=== PATIENT | female | born 1970 | race Caucasian/White ===

== ENCOUNTER 2019-09-27 10:00 | Outpatient (CLI) | payer MEDICAID, SELFPAY ==
--- NOTE | 2019-09-27 10:07 | MR_ITS ---
WS: [id number] MRI CERVICAL SPINE HISTORY: NUMBNESS AND TINGLING IN RIGHT ARM, NECK PAIN COMPARISON: 10/16/2012 Normal cervical alignment. Mild disc desiccation at C5-6 and C6-7. Signal within the cervical cord is normal. Visualized posterior fossa is unremarkable. Craniocervical junction, C1 and C2 relationship, odontoid process and soft tissues are normal. C2-C3: Normal. C3-C4: Mild osteophytic ridging and a shallow central disc protrusion. No significant stenosis. C4-C5: Small LEFT foraminal osteophytes without significant stenosis. C5-C6: Mild osteophytic ridging with a central disc protrusion. Very slight encroachment upon the abisai tral thecal sac. There is still a small amount of CSF surrounding the cord. C6-C7: Small LEFT paracentral disc osteophyte. Slight narrowing of the proximal LEFT foramen and mild encroachment. Similar to the prior study with no significant progression. C7-T1: Very tiny central disc protrusion. No stenosis. Paraspinal soft tissue are normal. MR/MR cervical spin wo con* [id number] IMPRESSION: 1. Mild progression of spondylosis since 2012. 2. Small stable LEFT paracentral disc osteophyte complex at C6-7 with mild daysi rowing of the proximal LEFT foramen. 3. Central disc protrusion and osteophytes at C5-6 with mild encroachment upon the ventral thecal sac. New since the prior study. 4. Shallow central disc protrusion and osteophytic ridging at C3-4 without ed nosis.
== END 2019-09-27 10:01 | disposition home or self-care (01) ==
LOC: RADWPI 10:04
PROVIDERS: Family Provider Family Medicine; PCP Family Medicine; Referring Provider Family Medicine; Visit Provider Nurse Practitioner Family
DX: J20.9 Acute bronchitis, unspecified (principal); R20.2 Paresthesia of skin; M54.2 Cervicalgia; M47.892 Other spondylosis, cervical region; M25.78 Osteophyte, vertebrae; M50.222 Other cervical disc displacement at C5-C6 level; M50.21 Other cervical disc displacement, high cervical region
CPT/HCPCS: 72141

== ENCOUNTER 2019-10-14 12:56 | Outpatient (REF) | payer MEDICAID, SELFPAY ==
[2019-10-14 13:42] LABS: Basophils # 0.1 10^3/uL (0.0-0.1); Basophils % 0.7 %; Eosinophils # 0.2 10^3/uL (0.0-0.8); Eosinophils % 2.1 %; Hematocrit 40.5 % (37.0-47.0); Hemoglobin 13.2 g/dL (11.5-15.3); Lymphocytes % 26.9 %; Mean Corpuscular HGB Conc 32.6 g/dL (30.0-36.0); Mean Corpuscular Hemoglobin 27.4 pg (28.0-34.0); Mean Platelet Volume 9.1 fL (7.4-10.4); Monocytes # 0.6 10^3/uL (0.2-0.9); Monocytes % 7.6 %; Neutrophils # 4.5 10^3/uL (1.8-7.7); Neutrophils % 62.4 %; Nucleated Red Blood Cells % 0 %; Platelet Count 399 10^3/cmm (130-400); Red Blood Count 4.82 10^6/uL (4.1-5.3); Red Cell Distribution Width 13.8 % (12.1-15.1); White Blood Count 7.3 10^3/uL (4.0-10.0)
[2019-10-14 14:02] LABS: Estmated Average Glucose 105; Hemoglobin A1C 5.3 % (4.0-6.0)
[2019-10-14 14:08] LABS: Alanine Aminotransferase 23 U/L (0-33); Albumin Level 3.8 g/dL (3.5-5.2); Alkaline Phosphatase 100 IU/L (35-105); Anion Gap 14.9 (5-19); Aspartate Amino Transferase 22 U/L (0-32); Blood Urea Nitrogen 10 mg/dL (6-20); Calcium 9.6 mg/dL (8.5-10.5); Carbon Dioxide 28 mmol/L (22-29); Chloride 102 mmol/L (98-107); Cholesterol 168 mg/dL (0-200); Globulin 4.3 g/dL (1.3-4.6); Glomerular Filtration Rate 107.6 mL/min (90-130); Glucose 99 mg/dL (74-109); HDL Cholesterol 41 mg/dL (60-100); LDL Cholesterol Calculated 70 mg/dL (50-129); LDL HDL Ratio 1.71 RATIO (0.00-3.22); Potassium 3.9 mmol/L (3.5-5.1); Sodium 141 mmol/L (136-145); Total Bilirubin 0.2 mg/dL (0.15-1.2); Total Protein 8.1 g/dL (6.6-8.7); Triglycerides 287 mg/dL (0-150)
== END 2019-10-14 12:57 | disposition home or self-care (01) ==
LOC: LAB 12:56
PROVIDERS: Family Provider Family Medicine; PCP Family Medicine; Visit Provider Dermatology
DX: Z01.89 Encounter for other specified special examinations (principal)
CPT/HCPCS: 80053; 80061; 83036; 85025

== ENCOUNTER 2019-10-29 17:57 | Emergency (ER) | payer MEDICAID, SELFPAY ==
[2019-10-29 18:13] VITALS: BP 170/130; PULSE 103; RESP 18; TEMP 37.8; O2SAT 96; BMI 40.2
--- NOTE | 2019-10-29 18:25 | XR_ITS ---
WS: [id number] XR chest 1V portable [id number] REASON FOR EXAM: admission FINDINGS: The heart size is borderline enlarged. The peripheral lung show no pneumonia, pleural effusion, pulmonary edema, or mass effect. Mild degenerate changes in the thoracic spine. No active processes. XR/XR chest 1V portable [id number] IMPRESSION: Cardiomegaly
--- NOTE | 2019-10-29 18:28 | ED_ITS ---
HPI - General Adult General: Chief complaint: General Medical Stated complaint: difficulty breathing Time Seen by Provider: 10/29/19 18:24 History of Present Illness: HPI narrative: Patient complains of feeling achy fever chills with a cough last day or so. Says right ear hurts. Has been taken Tylenol and ibuprofen for the fever MD complaint: flu like s/s Onset (ago): day(s) Relieving factors: none Associated symptoms: Deny chest pain, dyspnea, headache(s), nausea, rash or vomiting Review of Systems Const: Reports: fever, chills and body aches Eyes: Denies: change in vision or blurry vision ENMT: Reports: ear pain; Denies: throat pain or nasal congestion Card: Denies: chest pain or shortness of breath on exertion Resp: Reports: non-productive cough; Denies: shortness of breath or productive cough GI: Denies: abdominal pain, nausea or vomiting Musc: Denies: extremity pain Skin/Breast: Denies: rash Neuro: Denies: headache Psych: Denies: anxiety or depression Kailash/Lymph: Denies: easy bruising PFSH ED PFSH: Social History Smoking and tobacco status: never smoked Physical Exam Const: COMMON NORMALS: no apparent distress, average body habitus and oriented x3 HENMT: COMMON NORMALS: normocephalic and TM's normal bilaterally HEAD & SCALP: normal to inspection and normocephalic FACE & SINUS: normal facial exam TYMPANIC MEMBRANE: TM's normal bilaterally Eye: COMMON NORMALS: conjunctivae normal GENERAL EYE: normal appearance of both eyes CONJUNCTIVA: Yes conjunctivae normal Neck/C-Spine: COMMON NORMALS: no JVD Chest: COMMONS NORMALS: inspection of chest normal Resp: COMMON NORMALS: normal respiratory effort and clear to auscultation bilaterally AUSCULTATION: clear to auscultation bilaterally Cardio: COMMON NORMALS: no JVD, regular rate and regular rhythm RATE: regular rate RHYTHM: regular rhythm GI: COMMON NORMALS: normal to inspection, nondistended, normoactive bowel sounds Extremity: COMMON NORMALS: normal to inspection and full ROM Neuro: COMMON NORMALS: oriented x3 Course Vital Signs: Vital signs: Vital Signs Temperature 100.1 F H 10/29/19 18:13 Pulse Rate 103 H 10/29/19 18:13 Respiratory Rate 18 10/29/19 18:13 Blood Pressure 170/130 10/29/19 18:13 Pulse Oximetry 96 10/29/19 18:13 Discharge Plan Discharge Prescriptions: No Action loratadine [Claritin] 10 mg tablet 10 mg PO ONCE RF: 0 naproxen 250 mg tablet 250 mg PO BID PRNRF: 0 diclofenac sodium [Voltaren] 1 % gel 2 gm TOPICAL QID RF: 0 hydrocodone-acetaminophen 7.5-325 mg tablet 1 tab PO .five times daily PRNRF: 0 duloxetine [Cymbalta] 60 mg capsule,delayed release(DR/EC) 60 mg PO ONCE Qty: 30 RF: 0 temazepam [Restoril] 15 mg capsule 15 mg PO .At bedtime Qty: 30 RF: 0 Coding Level of Care Code ED 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
[2019-10-29 18:46] LABS: Basophils % 0.7 %; Eosinophils % 0.2 %; Hematocrit 41.4 % (37.0-47.0); Hemoglobin 13.1 g/dL (11.5-15.3); Lymphocytes # 0.7 10^3/uL (0.8-4.8); Mean Corpuscular HGB Conc 31.6 g/dL (30.0-36.0); Mean Corpuscular Volume 85.2 fL (81-99); Mean Platelet Volume 8.4 fL (7.4-10.4); Monocytes # 0.6 10^3/uL (0.2-0.9); Monocytes % 9.5 %; Neutrophils # 4.6 10^3/uL (1.8-7.7); Neutrophils % 78.4 %; Nucleated Red Blood Cells % 0 %; Platelet Count 298 10^3/cmm (130-400); Red Blood Count 4.86 10^6/uL (4.1-5.3); White Blood Count 5.9 10^3/uL (4.0-10.0)
[2019-10-29 19:02] LABS: Lactic Sepsis W/Reflex 0.9 mmol/L (0.5-2.2)
[2019-10-29 19:07] LABS: Influenza A by IFA Positive (Negative); Influenza B by IFA Negative (Negative)
[2019-10-29 19:07] LABS: Alanine Aminotransferase 34 U/L (0-33); Alkaline Phosphatase 84 IU/L (35-105); Anion Gap 17.2 (5-19); Aspartate Amino Transferase 34 U/L (0-32); Blood Urea Nitrogen 9 mg/dL (6-20); Calcium 9.1 mg/dL (8.5-10.5); Carbon Dioxide 21 mmol/L (22-29); Chloride 97 mmol/L (98-107); Globulin 3.4 g/dL (1.3-4.6); Glomerular Filtration Rate 92.2 mL/min (90-130); Glucose 111 mg/dL (65-115); Potassium 3.2 mmol/L (3.5-5.1); Sodium 132 mmol/L (136-145); Total Bilirubin 0.4 mg/dL (0.15-1.2); Total Protein 7.4 g/dL (6.6-8.7)
[2019-10-29] MEDS: ketorolac 10 mg Tablet PO (19:24)
--- NOTE | 2019-10-29 19:28 | PC.NURSE ---
Introduced self to patient and initiated vital signs. Pt is A&O x 4 and agreeable. Pt states that the reason for the ER visit today is due to ...... Pt also complaining of flu-like symptoms, Pt complaining of sore throat, chills, cough, and generalized body aches. Reassured patient of needs and will continue to monitor.
[2019-10-29 19:30] VITALS: BP 161/53; PULSE 91; RESP 18; O2SAT 95
== END 2019-10-29 20:16 | disposition home or self-care (01) ==
PROVIDERS: Emergency Provider Nurse Practitioner Family; Family Provider Family Medicine; PCP Family Medicine
DX: R06.00 Dyspnea, unspecified (principal); R50.9 Fever, unspecified; R05 Cough; H92.01 Otalgia, right ear
CPT/HCPCS: 71045; 80053; 83605; 85025; 87040; 87804; 99281; 99283

== ENCOUNTER → 2019-12-10 08:19 | Outpatient (BNVA) | payer MEDICAID, SELFPAY | PROVIDERS: Family Provider Family Medicine; PCP Family Medicine; Visit Provider Nurse Practitioner | DX: F33.41 Major depressive disorder, recurrent, in partial remission (principal); F42.8 Other obsessive-compulsive disorder | CPT/HCPCS: 99214 ==

== ENCOUNTER → 2020-02-02 08:22 | Outpatient (BNVA) | payer MEDICAID, SELFPAY | PROVIDERS: Family Provider Family Medicine; PCP Family Medicine; Visit Provider Nurse Practitioner | DX: F33.41 Major depressive disorder, recurrent, in partial remission (principal); F42.8 Other obsessive-compulsive disorder | CPT/HCPCS: 99213 ==

== ENCOUNTER 2020-04-14 01:18 | Emergency (ER) | payer MEDICAID, SELFPAY ==
[2020-04-07 14:50] VITALS: BP 182/110; BMI 39.5
[2020-04-14 01:27] VITALS: BMI 39.3
--- NOTE | 2020-04-14 01:36 | ED_ITS ---
HPI - General Adult General: Chief complaint: General Medical Stated complaint: right breast pain Time Seen by Provider: 04/14/20 01:24 History of Present Illness: HPI narrative: Patient is a 49-year-old female comes to the ED with left breast lump. Patient says that she noticed the lump within the last 24 hours. She did state that she had some left breast pain/discomfort for the past month when she laid on her left side. She denies any warmth or drainage to the mass. Denies any fever, chills, night sweats, nipple discharge, abdominal pain, nausea/vomiting, bladder or bowel symptoms. Patient states that she has not had a mammogram performed before. Associated symptoms: Deny chest pain, dyspnea, headache(s), nausea, rash, palpitations or vomiting Review of Systems Const: Denies: fever(s), chills or fatigue Eyes: Denies: change in vision or eye discomfort ENMT: Denies: throat pain, odynophagia, nasal discharge or nasal congestion Card: Denies: chest pain, palpitations, edema, swelling of feet/ankles, dyspnea on exertion or orthopnea Resp: Denies: dyspnea, productive cough or non-productive cough GI: Denies: abdominal pain, nausea, vomiting, diarrhea, constipation or hematochezia : Denies: flank pain, dysuria or hematuria Musc: Denies: neck pain, back pain or extremity swelling Skin/Breast: Reports: breast pain (mild breast pain) and breast mass (Patient is new breast lump on left breast.); Denies: rash, new lesions, breast tenderness or nipple discharge Neuro: Denies: headache(s), numbness in extremities or weakness in extremities PFS ED PFSH: Medical History Other obsessive-compulsive disorder Recurrent major depressive disorder, in partial remission Social History Smoking and tobacco status: never smoked Alcohol intake: never Physical Exam Const: COMMON NORMALS: no acute distress, patient oriented x3, healthy appearing and alert GENERAL APPEARANCE: cooperative and comfortable HENMT: COMMON NORMALS: normocephalic HEAD & SCALP: normocephalic MOUTH: Normal oral and palatal mucosa present THROAT: posterior oropharynx normal and uvula midline Neck/C-Spine: COMMON NORMALS: supple GENERAL: Yes normal visual inspection Lymph: LYMPHATIC: lymphadenopathy axillary multiple and mobile; not warm and nontender 0.5 cm Chest: BREAST/AXILLA PALPATION: Yes abnormal palpation of the breast left lower inner Breast palpation abnormal details: mass Details: mobile, shape (Oval-shaped and approximately 2 cm in size.), firm and cystic and Yes axillary lymphadenopathy Details: lateral adenopathy (Small palpable lymph nodes that are nontender in the axillary region.) NIPPLE/AREOLA: Yes nipples/areola normal OTHER: Patient's left breast mass is nontender. It is not warm to the touch and is nonflunctuant. Resp: COMMON NORMALS: normal respiratory effort, No retractions, No use of accessory muscles and clear to auscultation bilaterally AUSCULTATION: clear to auscultation bilaterally Cardio: COMMON NORMALS: regular rate, regular rhythm, S1 normal heart sound present, S2 normal heart sound present, No gallops present (Cardio), No clicks present (Cardio), No murmurs present (Cardio) and Peripheral pulses 2+ throughout RATE: regular rate RHYTHM: regular rhythm HEART SOUNDS: S1 normal heart sound present and S2 normal heart sound present PERIPHERAL PULSES: Peripheral pulses 2+ throughout GI: COMMON NORMALS: Normal to inspection, nondistended, normoactive bowel sounds present, Soft to palpation, non-tender and no masses PALPATION: Yes Soft to palpation : COMMON NORMALS: Yes no CVA tenderness BLADDER/KIDNEY EXAM: Yes no CVA tenderness Back/Pelvis: COMMON NORMALS: no CVA tenderness Extremity: COMMON NORMALS: normal to inspection and no pedal edema Neuro: COMMON NORMALS: patient oriented x3 and moves all extremities SENSORIUM/ORIENTATION: Yes alert Skin: GENERAL SKIN EXAM: dry skin Course ED course: Bedside ultrasound of left breast mass showed no fluid filled pocket or hypoechoic mass. Vital Signs: Vital signs: Vital Signs Pulse Rate 95 04/14/20 01:49 Respiratory Rate 18 04/14/20 01:49 Blood Pressure 163/105 04/14/20 01:49 MDM - General Adult MDM Narrative: Medical decision making narrative: Patient is a 49-year-old female who comes to the ED with a left breast mass. Physical exam showed a palpable left breast mass measuring approximately 2 cm and oval-shaped. It was nontender, nonfluctuant, normal for and no warmth. Bedside ultrasound showed the mass was not fluid-filled or hypoechoic. Physical exam and ultrasound ruled out abscess. Patient was diagnosed with a left breast mass and told to call PCP tomorrow morning to get an outpatient mammogram scheduled for further evaluation of breast mass. Patient understood and agreed with plan. Discharge Plan Discharge Patient Disposition: Home Clinical Impression: Breast lump on left side at 8 o'clock position Condition: Stable Prescriptions: No Action loratadine [Claritin] 10 mg tablet 10 mg PO ONCE RF: 0 diclofenac sodium [Voltaren] 1 % gel 2 gm TOPICAL QID RF: 0 hydrocodone-acetaminophen 7.5-325 mg tablet 1 tab PO .five times daily PRNRF: 0 albuterol sulfate 90 mcg/actuation HFA aerosol inhaler 2 puff INHALATION Q6H PRN (Reason: shortness of breath or wheezing) Qty: 18 RF: 0 escitalopram oxalate [Lexapro] 10 mg tablet 10 mg PO DAILY Qty: 30 RF: 2 temazepam [Restoril] 15 mg capsule 15 mg PO .At bedtime Qty: 30 RF: 2 amoxicillin 500 mg capsule 500 mg PO TID 10 Days Qty: 30 RF: 0 Discharge Orders: Discharge Order (Routine); Ordered 04/14/20 Ordered By: Calvin Palomino Referrals: Washington Bernard DO [Primary Care Provider] - Discharge Diet: Regular Discharge Activity: Resume usual activity Patient Instructions: Breast Mass (ED) Activity Restrictions/Additional Instructions: Follow-up with medical provider as directed. Contact PCP tomorrow morning to get a outpatient mammogram scheduled. Continue taking all home medications as prescribed. Return to the ER or your medical provider if condition worsens. Please read and understand discharge instructions. If any questions, please ask. 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
[2020-04-14 01:49] VITALS: BP 163/105; PULSE 95; RESP 18
[2020-04-14 02:10] VITALS: BP 155/89; PULSE 78; RESP 16; O2SAT 99
== END 2020-04-14 02:11 | disposition home or self-care (01) ==
PROVIDERS: Emergency Provider Physician Assistant; PCP Family Medicine
DX: N63.20 Unspecified lump in the left breast, unspecified quadrant (principal)
CPT/HCPCS: 12345; 99281

== ENCOUNTER → 2020-05-04 07:42 | Outpatient (BNVA) | payer MEDICAID, SELFPAY ==
[2020-04-07 14:50] VITALS: BP 182/110; BMI 39.5
== END ==
PROVIDERS: PCP Family Medicine; Visit Provider Nurse Practitioner
DX: F33.41 Major depressive disorder, recurrent, in partial remission (principal); F42.8 Other obsessive-compulsive disorder
CPT/HCPCS: 90832; 99213

== ENCOUNTER → 2020-06-07 07:34 | Outpatient (BNVA) | payer MEDICAID, SELFPAY ==
[2020-04-07 14:50] VITALS: BP 182/110; BMI 39.5
== END ==
PROVIDERS: PCP Family Medicine; Visit Provider Nurse Practitioner
DX: F42.8 Other obsessive-compulsive disorder (principal); F33.41 Major depressive disorder, recurrent, in partial remission
CPT/HCPCS: 99213

== ENCOUNTER → 2020-08-23 07:46 | Outpatient (BNVA) | payer MEDICAID, SELFPAY ==
[2020-04-07 14:50] VITALS: BP 182/110; BMI 39.5
== END ==
PROVIDERS: PCP Family Medicine; Visit Provider Nurse Practitioner
DX: F33.41 Major depressive disorder, recurrent, in partial remission (principal); F42.8 Other obsessive-compulsive disorder
CPT/HCPCS: 99214

== ENCOUNTER 2020-09-05 06:38 | Emergency (ER) | payer MEDICAID, SELFPAY ==
[2020-04-07 14:50] VITALS: BP 182/110; BMI 39.5
[2020-09-05 06:45] VITALS: BP 169/95; PULSE 64; RESP 18; TEMP 36.8; O2SAT 98; BMI 35.6
--- NOTE | 2020-09-05 06:49 | W.ED.BACK ---
HPI - Back Pain/Injury General: Chief Complaint: Neck Pain/Injury Stated Complaint: Right Arm/Back Pain Time Seen by Provider: 09/05/20 06:45 History of Present Illness: HPI Narrative: 50-year-old female comes in complaining of right arm and neck pain. She has had neck pain with the right arm radicular pain for several months. She was supposed to follow-up with neurosurgery but due to some scheduling issues was not able to follow through with. Last several days the pain has been worse. She denies any reexacerbating injuries. Pertinent past history: other (Prior neck pain) Onset (ago): day(s) Timing: constant Severity: severe Similar Symptoms Previously: Yes Quality: burning Radiation: other (Right arm) Exacerbating factors: movement Relieving factors: other (Resting) Associated symptoms: Deny abdominal pain, chills, dysuria, fatigue, fever(s), nausea, urinary urgency or vomiting Review of Systems Const: Denies: fever(s), chills, body aches, change in appetite, fatigue or malaise ENMT: Denies: throat pain, ear or mastoid pain, nasal discharge or nasal congestion Card: Denies: chest pain, edema, dyspnea on exertion or orthopnea Resp: Denies: dyspnea, productive cough or non-productive cough GI: Denies: abdominal pain, nausea, vomiting, hematemesis, coffee ground emesis, diarrhea, constipation, bloating, hematochezia or melena : Denies: flank pain, difficulty voiding, dysuria, urinary frequency or urinary urgency Skin/Breast: Denies: rash or pruritus PFSH ED PFSH: Medical History (Updated 09/05/20 @ 07:54 by Donnie Chandra DO) Other obsessive-compulsive disorder Recurrent major depressive disorder, in partial remission Family History Father Hypertension CAD (coronary artery disease) Hyperlipidemia Cancer Brother Hypertension CAD (coronary artery disease) Hyperlipidemia Grandfather CAD (coronary artery disease) Hypertension Mother Hyperlipidemia Social History Smoking and tobacco status: never smoked Alcohol intake: never Current gender identity: Female Physical Exam Const: COMMON NORMALS: no acute distress GENERAL APPEARANCE: cooperative and comfortable ORIENTATION/CONSCIOUSNESS: Yes awake, Yes oriented to person, Yes oriented to place and Yes oriented to time HENMT: COMMON NORMALS: normocephalic and atraumatic HEAD & SCALP: normocephalic and atraumatic Neck/C-Spine: COMMON NORMALS: no JVD OTHER: Moderate neck pain, exacerbated by attempts at range of motion. Radiation through the shoulder down into the right arm. Resp: COMMON NORMALS: normal respiratory effort, No retractions, No use of accessory muscles and clear to auscultation bilaterally AUSCULTATION: clear to auscultation bilaterally Cardio: COMMON NORMALS: no JVD, regular rate, regular rhythm and No murmurs present (Cardio) RATE: regular rate RHYTHM: regular rhythm GI: COMMON NORMALS: Soft to palpation and No hepatosplenomegaly present AUSCULTATION: Yes normoactive bowel sounds PALPATION: Yes Soft to palpation, No Tenderness to palpation present (GI), No Guarding due to palpation present (GI) and Yes No hepatosplenomegaly present Extremity: COMMON NORMALS: normal to inspection, capillary refill normal, no clubbing, cyanosis or edema, no calf tenderness and no pedal edema Neuro: SENSORIUM/ORIENTATION: Yes oriented to person, Yes oriented to place and Yes oriented to time Skin: COMMON NORMALS: no rashes or lesions noted GENERAL SKIN EXAM: no rashes or lesions noted Course Vital Signs: Vital signs: Vital Signs Temperature 98.2 F 09/05/20 06:45 Pulse Rate 64 09/05/20 06:45 Respiratory Rate 18 09/05/20 06:45 Blood Pressure 169/95 09/05/20 06:45 Pulse Oximetry 98 09/05/20 06:45 MDM - Back Pain/Injury MDM Narrative: Medical decision making narrative: Patient improved with medications given. Working to go ahead and discharge her home start Lyrica also do Medrol dose pack, refer to Dr. Durham. She had some new disc disease in September of this year on her cervical spine MRI. We will reschedule her for another MRI and refer her to Dr. Durhma. Discharge Plan Discharge Patient Disposition: Home Clinical Impression: Cervical radiculopathy Condition: Stable Prescriptions: New Lyrica 75 mg capsule 75 mg PO BID Qty: 60 RF: 1 Medrol (Salbador) 4 mg tablets,dose pack See Rx Instructions .ROUTE .COMPLEX Qty: 21 RF: 0 No Action loratadine [Claritin] 10 mg tablet 10 mg PO ONCE RF: 0 diclofenac sodium [Voltaren] 1 % gel 2 gm TOPICAL QID RF: 0 hydrocodone-acetaminophen 7.5-325 mg tablet 1 tab PO .five times daily PRNRF: 0 albuterol sulfate 90 mcg/actuation HFA aerosol inhaler 2 puff INHALATION Q6H PRN (Reason: shortness of breath or wheezing) Qty: 18 RF: 0 escitalopram oxalate [Lexapro] 10 mg tablet 10 mg PO DAILY Qty: 30 RF: 1 temazepam 30 mg capsule 30 mg PO .HS Qty: 30 RF: 1 Discharge Orders: Discharge ED (Routine); Ordered 09/05/20 Ordered By: Donnie Chandra Referrals: Washington Bernard DO [Primary Care Provider] - Discharge Diet: Usual diet Discharge Activity: Increase activity as tolerated Activity Restrictions/Additional Instructions: Case management will call with an appointment for Dr. Durham (orthopedic spine surgery) Coding Level of Care Code ED Associate Store Manager for Pat Fwd Exam Comprehensive
--- NOTE | 2020-09-05 07:11 | ECG_ITS ---
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 Measurements Intervals [place] Rate: 59 P: 52 [place]: 202 QRS: 25 QRSD: 89 T: 8 QT: 427 QTc: 423 Interpretive Statements SINUS BRADYCARDIA POSSIBLE LEFT ATRIAL ENLARGEMENT [-0.1mV P WAVE IN V1/V2] POSSIBLE RIGHT VENTRICULAR CONDUCTION DELAY [RSR (QR) IN V1/V2] MINIMAL ST DEPRESSION [0.025+ mV ST DEPRESSION] Compared to ECG 03/05/2019 19:13:49 ST (T wave) deviation now present Sinus rhythm no longer present T-wave abnormality no longer present Electronically Signed On 09-05-2020 9:37:43 SINTER FEEDER by Haris May M.D. [id number]
[2020-09-05] MEDS: orphenadrine 30 mg/mL Inj 2 mL 60 MG IM (07:29)
[2020-09-05] MEDS: ketorolac 60 mg/2 mL INJ IM (07:30)
[2020-09-05] MEDS: dexamethasone 4 mg/mL INJ 10 MG IM (07:30)
[2020-09-05 08:22] VITALS: BP 154/82; PULSE 57; RESP 18; O2SAT 97
--- NOTE | 2020-09-05 10:27 | DCPLANNER ---
Addendum entered by Mellissa Bardales 09/11/20 16:22: branch manager had message to schedule a follow up appointment for patient with Dr. Durham after MRI. branch manager called the ortho clinic, spoke with Ursula, gave clinic patients information. Clinic will call patient with appointment information, after patient has MRI. Original Note: branch manager had message to schedule a follow up appointment for patient with ortho. branch manager called the ortho clinic, spoke with Minoo, gave clinic patients information. branch manager was told that patients information would be printed and reviewed. Clinic will call patient with appointment information.
--- NOTE | 2020-09-15 11:02 | DCPLANNER ---
Patient had a follow up appointment scheduled for 09.07.20 with ortho - patient did attend the appointment.
--- NOTE | 2020-10-03 07:36 | DCPLANNER ---
Patient had an outpatient MRI scheduled for 09.28. - patient attended appointment for MRI.
== END 2020-09-05 08:25 | disposition home or self-care (01) ==
PROVIDERS: Emergency Provider Family Medicine; PCP Family Medicine
DX: M54.12 Radiculopathy, cervical region (principal)
CPT/HCPCS: 12345; 93005; 96372; 99281; 99283; J1100; J1885; J2360

== ENCOUNTER → 2020-09-07 10:51 | Outpatient (BNVA) | payer MEDICAID, SELFPAY ==
[2020-04-07 14:50] VITALS: BP 182/110; BMI 39.5
== END ==
PROVIDERS: PCP Family Medicine; Referring Provider Family Medicine; Visit Provider Orthopaedic Surgery
DX: M54.12 Radiculopathy, cervical region (principal); M54.2 Cervicalgia
CPT/HCPCS: 72050

== ENCOUNTER 2020-09-28 08:46 | Outpatient (CLI) | payer MEDICAID, SELFPAY ==
[2020-04-07 14:50] VITALS: BP 182/110; BMI 39.5
--- NOTE | 2020-09-28 08:51 | MR_ITS ---
WS: [id number] MRI CERVICAL SPINE NONCONTRAST TECHNIQUE: Sagittal T1, T2 and STIR imaging. Axial T2, gradient, and fiesta imaging. CLINICAL INFORMATION: CERVICAL DISC DISEASE COMPARISON: MRI September 27, 2019 FINDINGS: Straightening of the normal cervical lordosis. Small disc protrusion C5-C6 and C6-C7. C2-C3: Normal. C3-C4: Mild left and no significant right foraminal narrowing. Mild facet arthropathy. Spinal canal i s patent. C4-C5: Mild disc osteophytic ridging. Mild left and no significant right foraminal narrowing. Mild fa cet arthropathy. Spinal canal is patent. C5-C6: Disc osteophyte complex with endplate ridging. Mild left and no significant right foraminal na rrowing. Mild facet arthropathy. Tiny shallow central protrusion is unchanged. C6-C7: Left pericentral shallow protrusion with slight contact of the cervical cord. Mild central can al stenosis. Moderate left and no significant right foraminal narrowing. This is slightly progressed compared to previous. C7-T1: Mild bilateral bony foraminal narrowing. Spinal canal is patent. Visualized brain stem structures: Normal. Prevertebral soft tissues: Normal. MR/MR cervical spin wo con* [id number] IMPRESSION: 1. Straightening of the normal cervical lordosis. Cord signal is normal. 2. Shallow left pericentral protrusion C6-C7 with mild central canal stenosis and slight contact of the cervical cord. This is slightly progressed compared t o previous. Moderate left foraminal narrowing. 3. Tiny shallow central protrusion C5-C6 is unchanged. Osteophytic ridging wit h mild left foraminal narrowing. 4. Mild left C4-5 bony foraminal narrowing with mild facet arthropathy.
== END 2020-09-28 08:47 | disposition home or self-care (01) ==
LOC: RADSHAW 08:49
PROVIDERS: PCP Family Medicine; Visit Provider Family Medicine
DX: M50.30 Other cervical disc degeneration, unspecified cervical region (principal); M50.223 Other cervical disc displacement at C6-C7 level; M47.812 Spondylosis without myelopathy or radiculopathy, cervical region
CPT/HCPCS: 72141

== ENCOUNTER → 2020-09-29 08:48 | Outpatient (BNVA) | payer MEDICAID, SELFPAY ==
[2020-04-07 14:50] VITALS: BP 182/110; BMI 39.5
== END ==
PROVIDERS: PCP Family Medicine; Referring Provider Orthopaedic Surgery; Visit Provider Anesthesiology Pain Medicine
DX: G89.29 Other chronic pain (principal); M50.90 Cervical disc disorder, unspecified, unspecified cervical region; M47.812 Spondylosis without myelopathy or radiculopathy, cervical region; E66.9 Obesity, unspecified
CPT/HCPCS: 99205

== ENCOUNTER 2020-10-05 02:49 | Emergency (ER) | payer MEDICAID, SELFPAY ==
[2020-04-07 14:50] VITALS: BP 182/110; BMI 39.5
[2020-10-05 02:56] VITALS: PULSE 63; RESP 20; TEMP 37.1; O2SAT 98; BMI 36.2
--- NOTE | 2020-10-05 03:05 | ED_ITS ---
HPI - Abdominal Pain General: Chief Complaint: Abdominal Pain Stated Complaint: ab pain, thinks its an ovary Time Seen by Provider: 10/05/20 02:51 Source: patient Mode of arrival: ambulatory Limitations: no limitations History of Present Illness: HPI narrative: 50-year-old female states she has had left lower quadrant pain and flank pain that started all of a sudden tonight is having severe pain. States tonight at 10 is causing her nausea. She denies any vomiting. She denies any worsening improving factors. She has a history of ovarian cyst in the past. She denies any vaginal bleeding. MD elicited complaint: abdominal pain Pertinent past history: none Onset (ago): hour(s) Pain Consistency: constant Location: LLQ Severity: severe Quality: stabbing Radiation: none Migration to: no migration Exacerbating factors: nothing Relieving factors: nothing Associated Symptoms: Reports nausea; Denies chills, dysuria and fever(s) Related Data: Date of Last Menstrual Period: 09/05/20 Review of Systems Const: Denies: fever(s), chills, body aches or change in appetite Eyes: Denies: blurry vision or eye discomfort ENMT: Denies: throat pain or dental pain Card: Denies: chest pain Resp: Denies: dyspnea GI: Reports: abdominal pain and nausea : Denies: dysuria Musc: Denies: neck pain or back pain Skin/Breast: Denies: rash Neuro: Denies: headache(s) Psych: Denies: depression Kailash/Lymph: Denies: easy bruising All/Imm: Denies: urticaria PFSH ED PFSH: Medical History (Updated 10/05/20 @ 04:40 by Dannie Kumar MD) Other obsessive-compulsive disorder Recurrent major depressive disorder, in partial remission Family History Father Hypertension CAD (coronary artery disease) Hyperlipidemia Cancer Brother Hypertension CAD (coronary artery disease) Hyperlipidemia Grandfather CAD (coronary artery disease) Hypertension Mother Hyperlipidemia Social History Smoking and tobacco status: never smoked Alcohol intake: never History of recent travel: No Current gender identity: Female Female Reproductive History: Date of last menstrual period: 09/05/20 Physical Exam Const: COMMON NORMALS: no acute distress, patient oriented x3 and healthy appearing HENMT: COMMON NORMALS: normocephalic and atraumatic HEAD & SCALP: normoc ephalic and atraumatic Eye: COMMON NORMALS: Equal, round and reactive pupils present and EOMs intact bilaterally PUPIL: Yes Equal, round and reactive pupils present Neck/C-Spine: COMMON NORMALS: full ROM and supple Chest: COMMONS NORMALS: normal inspection of the chest and normal palpation of entire chest wall Resp: COMMON NORMALS: normal respiratory effort, No retractions, No use of accessory muscles and clear to auscultation bilaterally AUSCULTATION: clear to auscultation bilaterally Cardio: COMMON NORMALS: regular rate, regular rhythm and No murmurs present (Cardio) RATE: regular rate RHYTHM: regular rhythm GI: COMMON NORMALS: Normal to inspection, nondistended, normoactive bowel sounds present, Soft to palpation and no masses PALPATION: Yes Soft to palpation and Yes Tenderness to palpation present (GI) Details: LLQ Extremity: COMMON NORMALS: normal to inspection and full ROM Neuro: COMMON NORMALS: patient oriented x3, moves all extremities and no focal motor deficits Psych: COMMON NORMALS: mental status grossly normal, Normal thought process present and cooperative THOUGHT PROCESS: Normal thought process present Skin: COMMON NORMALS: no rashes or lesions noted and no wounds GENERAL SKIN EXAM: no rashes or lesions noted Course Vital Signs: Vital signs: Vital Signs Temperature 98.8 F 10/05/20 02:56 Pulse Rate 63 10/05/20 02:56 Respiratory Rate 20 H 10/05/20 02:56 Pulse Oximetry 98 10/05/20 02:56 MDM - Abdominal Pain MDM Narrative: Medical decision making narrative: Patient presents here with a kidney stone likely causing her pain. Patient feels much improved after IV pain medicine. Stone is small and at the UVJ and should pass. We will discharge her with a strainer and pain meds. She is to follow-up with urology and return if worsening. Lab Data: Labs: Lab Results 10/05/20 10/05/20 10/05/20 Range/Units 03:06 03:17 03:17 WBC 7.9 (4.0-10.0) 10^3/ uL RBC 5.01 (4.1-5.3) 10^6/u L Hgb 14.0 (11.5-15.3) g/dL Hct 42.7 (37.0-47.0) % MCV 85.2 (81-99) fL MCH 27.9 L (28.0-34.0) pg MCHC 32.8 (30.0-36.0) g/dL RDW 13.9 (12.1-15.1) % Plt Count 356 (130-400) 10^3/c mm MPV 8.7 (7.4-10.4) fL Neut % (Auto) 53.3 % Lymph % (Auto) 34.4 % Moffat % (Auto) 9.7 % Eos % (Auto) 1.9 % Baso % (Auto) 0.6 % Neut # (Auto) 4.19 (1.8-7.7) 10^3/u L Lymph # (Auto) 2.7 (0.8-4.8) 10^3/u L Moffat # (Auto) 0.8 (0.2-0.9) 10^3/u L Eos # (Auto) 0.2 (0.0-0.8) 10^3/u L Baso # (Auto) 0.1 (0.0-0.1) 10^3/u L Nucleated RBC % (a uto) 0 % Nucleated RBCs # 0.0 /100WBC Sodium 139 (136-145) mmol/L Potassium 3.4 L (3.5-5.1) mmol/L Chloride 102 (98-107) mmol/L Carbon Dioxide 27 (22-29) mmol/L Anion Gap 13.4 (5-19) BUN 15 (6-20) mg/dL Creatinine 0.9 (0.5-0.9) mg/dL GFR Calculation 66.3 L (90-130) mL/min Glucose 104 (65-115) mg/dL Calculated Osmolal ity 289 (285-295) mOsm/k g Calcium 9.1 (8.5-10.5) mg/dL Total Bilirubin 0.3 (0.15-1.2) mg/dL AST 18 (0-32) U/L ALT 21 (0-33) U/L Alkaline Phosphata se 96 (35-105) IU/L Total Protein 7.1 (6.6-8.7) g/dL Albumin 3.9 (3.5-5.2) g/dL Globulin 3.2 (1.3-4.6) g/dL Lipase 19 (13-60) U/L Urine Color Yellow (Yellow) Urine Appearance Clear (CLEAR) Urine pH 5.0 (5-7) Ur Specific Gravit y 1.020 (1.005-1.030) Urine Protein Neg (Negative) Urine Glucose (UA) Norm (Normal) Urine Ketones Negative (Negative) Urine Blood 3+ H (Negative) Urine Nitrate Negative (Negative) Urine Bilirubin Neg (Negative) Urine Urobilinogen Norm (Negative) mg/dL Ur Leukocyte Tmaiko ase Negative (Negative) Urine RBC 15-25 H (0-2) /hpf Urine WBC None (0-5) /hpf Ur Squamous Epith Cells None (0-5) /hpf Amorphous Sediment Not Reportable Urine Bacteria Trace (NONE) /hpf Imaging Data ^: CT Abd/Pel: Attestation: I personally reviewed and interpreted this imaging study as f humberto: Radiologist's impression: [place] [address] CT Scan Report Signed Patient: Clover Farmer Unit #: [id number] : 1970 Age/Sex: 50 / F ADM Date: 10/05/20 Loc: ER Room/Bed: Attending Dr: Ordering Provider/Ordering MD: Dannie Kumar MD Date of Service: 10/05/20 Procedure(s): CT abdomen pelvis w con* [id number] Accession Number(s): [id number] Report Number: [id number] PROCEDURE INFORMATION: Exam: CT Abdomen And Pelvis With Contrast Exam date and time: 10/05/2020 3:14 AM Age: 50 years old Clinical indication: Abdominal pain; Localized; Right lower quadrant (rlq); Prior surgery; Surgery type: Csection; Patient HX: Rlq and groin pain. ; Additional info: Abd pain TECHNIQUE: Imaging protocol: Computed tomography of the abdomen and pelvis with intravenous contrast. Radiation optimization: All CT scans at this facility use at least one of these dose optimization techniques: automated exposure control; mA and/or kV adjustment per patient size (includes targeted exams where dose is matched to clinical indication); or iterative reconstruction. Contrast material: OMNI 300; Contrast volume: 95 ml; Contrast route: INTRAVENOUS (IV); COMPARISON: [place] [id number] 03/31/2014 8:41 PM RADIATION DOSE METRICS: Total DLP (mGy-cm): 1250.39 FINDINGS: Liver: No mass. Gallbladder and bile ducts: No calcified stones. No ductal dilation. Pancreas: No ductal dilation. Spleen: No splenomegaly. Adrenal glands: Normal. No mass. Kidneys and ureters: Left hydronephrosis from a 2-3 mm UVJ stone. Stomach and bowel: No obstruction. No mucosal thickening. Appendix: No evidence of appendicitis. Intraperitoneal space: No free air. No significant fluid collection. Vasculature: No abdominal aortic aneurysm. Lymph nodes: No enlarged lymph nodes. Urinary bladder: Unremarkable as visualized. Reproductive: Unremarkable as visualized. Bones/joints: Unremarkable. No acute fracture. Soft tissues: Unremarkable. CT/CT abdomen pelvis w con* [id number] IMPRESSION: Left hydronephrosis from a 2-3 mm UVJ stone. Discharge Plan Discharge Patient Disposition: Home Clinical Impression: Kidney stone Condition: Stable Prescriptions: [place] 5-325 mg tablet 1 tab PO Q6H PRN (Reason: pain) Qty: 14 RF: 0 ondansetron 4 mg tablet,disintegrating 4 mg PO Q6H PRN (Reason: nausea and vomiting) Qty: 14 RF: 0 No Action loratadine [Claritin] 10 mg tablet 10 mg PO ONCE RF: 0 diclofenac sodium [Voltaren] 1 % gel 2 gm TOPICAL QID RF: 0 hydrocodone-acetaminophen 7.5-325 mg tablet 1 tab PO .five times daily PRNRF: 0 albuterol sulfate 90 mcg/actuation HFA aerosol inhaler 2 puff INHALATION Q6H PRN (Reason: shortness of breath or wheezing) Qty: 18 RF: 0 escitalopram oxalate [Lexapro] 10 mg tablet 10 mg PO DAILY Qty: 30 RF: 1 temazepam 30 mg capsule 30 mg PO .HS Qty: 30 RF: 1 Lyrica 75 mg capsule 75 mg PO BID Qty: 60 RF: 1 Discharge Orders: Discharge ED (Routine); Ordered 10/05/20 Ordered By: Dannie Kumar Referrals: Pete Lugo MD [Physician] - 1-3 days Marco Antonio,[place] F, DO [Primary Care Provider] - Discharge Diet: Advance as tolerated Discharge Activity: Resume usual activity Patient Instructions: Kidney Stones (ED) Coding Level of Care Code ED 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
[2020-10-05 03:22] LABS: Basophils # 0.1 10^3/uL (0.0-0.1); Basophils % 0.6 %; Eosinophils # 0.2 10^3/uL (0.0-0.8); Eosinophils % 1.9 %; Hematocrit 42.7 % (37.0-47.0); Lymphocytes # 2.7 10^3/uL (0.8-4.8); Lymphocytes % 34.4 %; Mean Corpuscular HGB Conc 32.8 g/dL (30.0-36.0); Mean Corpuscular Hemoglobin 27.9 pg (28.0-34.0); Mean Corpuscular Volume 85.2 fL (81-99); Mean Platelet Volume 8.7 fL (7.4-10.4); Monocytes # 0.8 10^3/uL (0.2-0.9); Monocytes % 9.7 %; Neutrophils # 4.19 10^3/uL (1.8-7.7); Neutrophils % 53.3 %; Nucleated Red Blood Cells % 0 %; Platelet Count 356 10^3/cmm (130-400); Red Blood Count 5.01 10^6/uL (4.1-5.3); Red Cell Distribution Width 13.9 % (12.1-15.1); White Blood Count 7.9 10^3/uL (4.0-10.0)
[2020-10-05] MEDS: ondansetron 2 mg/ML SDV 2 mL 4 MG IVP (03:33)
[2020-10-05] MEDS: HYDROmorphone 1 mg/mL INJ 1 mL IVP (03:33)
[2020-10-05] MEDS: sodium chloride 0.9% 1,000 ML 999 ML IV (03:33)
[2020-10-05] MEDS: iohexol 300 mg/mL 100 mL Btl IV (03:37)
[2020-10-05 03:44] LABS: Alanine Aminotransferase 21 U/L (0-33); Albumin Level 3.9 g/dL (3.5-5.2); Alkaline Phosphatase 96 IU/L (35-105); Anion Gap 13.4 (5-19); Aspartate Amino Transferase 18 U/L (0-32); Blood Urea Nitrogen 15 mg/dL (6-20); Calcium 9.1 mg/dL (8.5-10.5); Carbon Dioxide 27 mmol/L (22-29); Chloride 102 mmol/L (98-107); Globulin 3.2 g/dL (1.3-4.6); Glomerular Filtration Rate 66.3 mL/min (90-130); Glucose 104 mg/dL (65-115); Lipase 19 U/L (13-60); Osmolality Calculated 289 mOsm/kg (285-295); Potassium 3.4 mmol/L (3.5-5.1); Sodium 139 mmol/L (136-145); Total Bilirubin 0.3 mg/dL (0.15-1.2); Total Protein 7.1 g/dL (6.6-8.7)
[2020-10-05 03:57] LABS: Add Urine Culture? No; Add Urine Microscopic? YES; Bacteria Urine TRACE /hpf; Bilirubin Urine Neg (Negative); Blood Urine 3+ (Negative); Glucose Urine UA Norm (Normal); Ketones Urine Negative (Negative); Leukocyte Esterase Urine Negative (Negative); Nitrate Urine Negative (Negative); Protein Urine Neg (Negative); RBC Urine 15-25 /hpf (0-2); Urine Appearance Clear (CLEAR); Urine Color Yellow (Yellow); Urobilinogen Urine Norm (Negative)
[2020-10-05] MEDS: ketorolac 30 mg/mL INJ 15 MG IVP (05:14)
[2020-10-05 05:15] VITALS: BP 143/87; PULSE 89; RESP 16; O2SAT 99
--- NOTE | 2020-10-05 11:47 | DCPLANNER ---
express manager had message to schedule a follow up appointment for patient Dr. Lugo. express manager called the office of Dr. Lugo, spoke with Leelee, gave clinic patients information. express manager was told that patients information would be printed and reviewed. Clinic will call patient with appointment information.
--- NOTE | 2020-10-06 13:43 | DCPLANNER ---
Patient had a follow up appointment for patient with Dr. Lugo, scheduled for 10.06.20 - patient did attend appointment.
== END 2020-10-05 05:17 | disposition home or self-care (01) ==
PROVIDERS: Emergency Provider Emergency Medicine; PCP Family Medicine
DX: N20.0 Calculus of kidney (principal)
CPT/HCPCS: 12345; 74177; 80053; 81001; 83690; 85025; 87491; 87591; 96361; 96374; 96375; 99282; 99283; J1170; J1885; J2405; J7030; Q9967

== ENCOUNTER 2020-10-06 07:10 | Outpatient (CLI) | payer MEDICAID, SELFPAY ==
[2020-04-07 14:50] VITALS: BP 182/110; BMI 39.5
--- NOTE | 2020-10-06 07:00 | XR_ITS ---
WS: [id number] KUB, AP view, 10/06/2020 Clinical Data: KIDNEY STONE Comparison: CT abdomen and pelvis, 10/05/2020 Findings: No abnormal intraabdominal masses are seen. There is no dilatated small bowel or evidence of obstruct ion. There are 3 calcifications on the left side of the true pelvis, and one of them could represent the l eft ureteral vesicle junction calculus. XR/XR KUB [id number] Impression: Probable left ureteral vesicle junction calculus
== END 2020-10-06 07:11 | disposition home or self-care (01) ==
LOC: RAD 07:11
PROVIDERS: PCP Family Medicine; Visit Provider Urology
DX: N20.0 Calculus of kidney (principal)
CPT/HCPCS: 74018; 81003; 87635

== ENCOUNTER 2020-10-09 12:56 | Day surgery (SDC) | payer MEDICAID, SELFPAY ==
[2020-04-07 14:50] VITALS: BP 182/110; BMI 39.5
[2020-10-07 12:19] VITALS: BMI 36.2
--- NOTE | 2020-10-09 13:03 | XR_ITS ---
WS: [id number] Exam: XR KUB [id number] Date/Time of Exam: 10/09/2020 1:19 PM Reason For Exam: Left distal ureteral stone Comparison 10/06/2020 No bowel obstruction or free air. Visualized organ margins are intact. The suspected small distal lef t ureteral calcification is not identified on today's exam and may have passed. XR/XR KUB [id number] IMPRESSION: 1. Previously noted triangular-shaped small left pelvic calcification is not se en on today's exam and may have represented a distal left ureteral calculus whi ch has passed. 2. No acute abdominal finding.
[2020-10-09 13:33] VITALS: BP 162/109; PULSE 70; RESP 18; TEMP 36.3; O2SAT 98
[2020-10-09] MEDS: sodium chloride 0.9% 1,000 ML 30 ML IV (13:42)
[2020-10-09 13:45] LABS: OR HCG Qualitative Urine Negative (Negative)
--- NOTE | 2020-10-09 16:33 | ANES.PREANE2 ---
Pre-Anesthetic Assessment Pre-Anesthetic Assessment: Height/Weight: Height 1.57 m Weight 89.811 kg Temp Pulse Resp BP Pulse Ox 97.4 F L 70 18 162/109 98 10/09/20 13:33 10/09/20 13:33 10/09/20 13:33 10/09/20 13:33 10/09/20 13:33 Preop Diagnosis: LEFT Distal ureteral stone, refractory Proposed Procedure: Operation Date: 10/09/20 14:30 Proposed Procedures p Cystoscopy 01959 89844 N20.2(Not Applicable) - Pete Lugo MD s Retrograde Pyelogram(Left) - MD earl Dennis Ureteroscopy(Not Applicable) - MD earl Dennis Laser Lithotripsy(Not Applicable) - Pete Lugo MD s Ureteral Stent Placement(Not Applicable) - Pete Lugo MD Was Beta Matt taken within 24 hours: N/A Last intake: Intake Last Liquid Date 10/08/20 Last Liquid Time 20:00 Last Solid Date 10/08/20 Last Solid Time 19:00 Social: Social History: Tobacco and No alcohol Exam: Pre-Anes Outpt Exam: alert, oriented x 3 and regular rate & rhythm Airway: Submandibular: WNL Cervical ROM: WNL MP: 2 Additional comments: Poor dentition Metabolic: Metabolic: Morbid obesity Musc/skel: Musc/skel: OA/DJD Comments: Chronic pain Neuropsych: Neuropsych: Depression Anesthetic Plan: ASA status: 3 Anesthesia: General Risk of > 500 ml blood loss (7ml/kg in children): No Meds/Allergies Current Medications: Current Medications Generic Name Dose Route Start Last Admin Trade Name Freq PRN Reason Stop Dose Admin Sodium Chloride 1,000 mls @ 30 ml s/hr 10/09/20 13:15 10/09/20 13:42 Sodium Chloride 0.9% IV 10/10/20 13:14 30 mls/hr .Q24H DANNIE Administration PFSH Anesthesia PFSH: Medical History Left ureteral calculus Other obsessive-compulsive disorder Recurrent major depressive disorder, in partial remission Family History Father Hypertension CAD (coronary artery disease) Hyperlipidemia Cancer Brother Hypertension CAD (coronary artery disease) Hyperlipidemia Grandfather CAD (coronary artery disease) Hypertension Mother Hyperlipidemia Social History Smoking and tobacco status: never smoked Alcohol intake: never History of recent travel: No Current gender identity: Female Female Reproductive History: Date of last menstrual period: 09/13/20 Data Anesthesia Other Labs: Laboratory Results - last 48 hr 10/09/20 13:43 Urine HCG, Qual Negative Cardiac Studies: No Data to Display
--- NOTE | 2020-10-09 16:44 | PC.NURSE ---
PATIENT DISCHARGED PER DR SIMENTAL.
--- NOTE | 2020-10-09 17:05 | W.PM.OPSUD ---
Surgery/Procedure H&P Update DATE OF PROCEDURE: October 09, 2020 DATE H&P PERFORMED: 10/06/20 H&P UPDATE INFORMATION: I have reviewed H&P completed within last 30 days, I have examined patient prior to procedure and Changes to prior documentation as noted here CHANGES TO PREVIOUS DOCUMENTATION: The patient was no longer having pain today. She was unaware of having passed the stone but has not religiously strained her urine. KUB done preoperatively failed to show the stone seen on previous KUB. We reviewed her options including canceling the case and following up in roughly a month with a KUB or sooner for increasing symptoms or proceeding on with surgery. The benefits and risks of that approaches were discussed and she ultimately said that she would prefer to cancel the procedure and follow-up as mentioned. She was discharged from outpatient surgery having canceled the surgery. PREOP DIAGNOSIS: LEFT Distal ureteral stone, refractory PLANNED PROCEDURE: Operation Date: 10/09/20 14:30 Proposed Procedures p Cystoscopy 69995 37531 N20.2(Not Applicable) - Pete Lugo MD s Retrograde Pyelogram(Left) - Pete Lugo MD s Ureteroscopy(Not Applicable) - Pete Lugo MD s Laser Lithotripsy(Not Applicable) - Pete Lugo MD s Ureteral Stent Placement(Not Applicable) - Pete Lugo MD
== END 2020-10-09 17:00 | disposition home or self-care (01) ==
PROVIDERS: Anesthesiology; PCP Family Medicine; Visit Provider Urology
PROC: 0TJB8ZZ Inspection of Bladder, Via Natural or Artificial Opening Endoscopic (ICD-10-PCS; CPT 52000; principal; 2020-10-09 14:30)
PROC: (CPT 74420; 2020-10-09 14:30)
PROC: 0TJ98ZZ Inspection of Ureter, Via Natural or Artificial Opening Endoscopic (ICD-10-PCS; CPT 52351; 2020-10-09 14:30)
PROC: (CPT 50605; 2020-10-09 14:30)
DX: N20.2 Calculus of kidney with calculus of ureter (principal); Z53.8 Procedure and treatment not carried out for other reasons; E66.01 Morbid (severe) obesity due to excess calories; Z68.36 Body mass index [BMI] 36.0-36.9, adult; M19.90 Unspecified osteoarthritis, unspecified site; F32.9 Major depressive disorder, single episode, unspecified
CPT/HCPCS: 12345; 74018; 81025; 84703; J7030

== ENCOUNTER 2020-11-08 08:05 | Outpatient (CLI) | payer MEDICAID, SELFPAY ==
[2020-04-07 14:50] VITALS: BP 182/110; BMI 39.5
--- NOTE | 2020-11-08 07:45 | XR_ITS ---
WS: [id number] Exam: XR KUB [id number] Date/Time of Exam: 11/08/2020 7:45 AM Reason For Exam: URETERAL STONE Comparison 10/09/2020. No sign of bowel obstruction or free air. 2 small left pelvic calcifications are noted unchanged in l ocation. No calcifications seen in the region of the kidneys. Visualized organ margins are unremarkab le. Bony structures are intact. XR/XR KUB [id number] IMPRESSION: 1. 2 small left pelvic calcifications unchanged in appearance. These measure in the range of 2 to 3 mm each. 2. No calcifications noted in the region of the kidneys. No acute abdominal pro cess.
== END 2020-11-08 08:06 | disposition home or self-care (01) ==
LOC: RAD 08:06
PROVIDERS: PCP Family Medicine; Visit Provider Urology
DX: N20.1 Calculus of ureter (principal)
CPT/HCPCS: 74018; 81003

== ENCOUNTER → 2020-12-05 07:55 | Outpatient (BNVA) | payer MEDICAID, SELFPAY ==
[2020-04-07 14:50] VITALS: BP 182/110; BMI 39.5
== END ==
PROVIDERS: PCP Family Medicine; Visit Provider Nurse Practitioner
DX: F33.41 Major depressive disorder, recurrent, in partial remission (principal); F42.8 Other obsessive-compulsive disorder
CPT/HCPCS: 99214

== ENCOUNTER → 2021-01-03 13:25 | Outpatient (BNVA) | payer OTHER, SELFPAY ==
[2020-04-07 14:50] VITALS: BP 182/110; BMI 39.5
== END ==
PROVIDERS: PCP Family Medicine; Visit Provider Nurse Practitioner
DX: F33.41 Major depressive disorder, recurrent, in partial remission (principal)
CPT/HCPCS: 80061; 83036

== ENCOUNTER → 2021-03-02 13:30 | Outpatient (BNVA) | payer MEDICAID, SELFPAY ==
[2021-01-05 15:24] VITALS: BP 166/97; BMI 35.0
== END ==
PROVIDERS: PCP Family Medicine; Visit Provider Nurse Practitioner
DX: F42.8 Other obsessive-compulsive disorder (principal); F33.41 Major depressive disorder, recurrent, in partial remission
CPT/HCPCS: 99214

== ENCOUNTER 2021-08-09 21:51 | Emergency (ER) | payer MEDICAID, SELFPAY ==
[2021-01-05 15:24] VITALS: BP 166/97; BMI 35.0
[2021-08-09 21:59] VITALS: BP 177/118; PULSE 79; RESP 19; TEMP 36.6; O2SAT 98; BMI 36.2
--- NOTE | 2021-08-09 22:15 | XRR_ITS ---
PROCEDURE INFORMATION: Exam: XR Chest Exam date and time: 08/09/2021 10:15 PM Age: 51 years old Clinical indication: Other: RT side abd pain TECHNIQUE: Imaging protocol: XR of the chest. Views: 1 view. COMPARISON: CR XR chest 1V portable [id number] 10/29/2019 6:54 PM FINDINGS: Lungs: Unremarkable. No consolidation. Pleural spaces: Unremarkable. No pleural effusion. No pneumothorax. Heart/Mediastinum: Unremarkable. No cardiomegaly. Bones/joints: Unremarkable. XR/XR chest 1V portable [id number] IMPRESSION: No acute findings. Radiation Dose CTDIVOL = (mGy): DLP = (mGy-cm)
--- NOTE | 2021-08-09 22:16 | W.ED.FEMALGU ---
HPI - Female Genitourinary General: Chief complaint: Urogenital-Female Stated complaint: RT Side Pain Time Seen by Provider: 08/09/21 21:54 Source: patient Mode of arrival: ambulatory Limitations: no limitations History of Present Illness: HPI Narrative: 51-year-old female states she been having intermittent right flank pain for 3 to 4 weeks. States the pain started again tonight in the right flank right upper back that sharp in nature she denies any worsening improving factors states pain is currently a 7 out of 10 denies any chest pain denies any shortness of breath denies any fevers. She said no vomiting or diarrhea. Associated symptoms: Deny abdominal pain, headache(s) or nausea Date of Last Menstrual Period: 09/13/20 Review of Systems Const: Denies: fever(s), chills, body aches or change in appetite Eyes: Denies: blurry vision or eye discomfort ENMT: Denies: throat pain or dental pain Card: Denies: chest pain Resp: Denies: dyspnea GI: Denies: abdominal pain, nausea, vomiting or diarrhea : Denies: dysuria Musc: Reports: back pain Skin/Breast: Denies: rash Neuro: Denies: headache(s) Psych: Denies: depression Kailash/Lymph: Denies: easy bruising All/Imm: Denies: urticaria PFSH ED PFSH: Medical History Left ureteral calculus Other obsessive-compulsive disorder Psychiatric care Recurrent major depressive disorder, in partial remission Family History Father Hypertension CAD (coronary artery disease) Hyperlipidemia Cancer Brother Hypertension CAD (coronary artery disease) Hyperlipidemia Grandfather CAD (coronary artery disease) Hypertension Mother Hyperlipidemia Social History Smoking and tobacco status: never smoked Alcohol intake: never History of recent travel: No Current gender identity: Female Female Reproductive History: Date of last menstrual period: 09/13/20 Physical Exam Const: COMMON NORMALS: no acute distress, patient oriented x3 and healthy appearing HENMT: COMMON NORMALS: normocephalic and atraumatic HEAD & SCALP: normocephalic and atraumatic Eye: COMMON NORMALS: Equal, round and reactive pupils present and EOMs intact bilaterally PUPIL: Yes Equal, round and reactive pupils present Neck/C-Spine: COMMON NORMALS: full ROM and supple Chest: COMMONS NORMALS: normal inspection of the chest and normal palpation of entire chest wall Resp: COMMON NORMALS: normal respiratory effort, No retractions, No use of accessory muscles and clear to auscultation bilaterally AUSCULTATION: clear to auscultation bilaterally Cardio: COMMON NORMALS: regular rate, regular rhythm and No murmurs present (Cardio) RATE: regular rate RHYTHM: regular rhythm GI: COMMON NORMALS: Normal to inspection, nondistended, normoactive bowel sounds present, Soft to palpation, non-tender and no masses PALPATION: Yes Soft to palpation Back/Pelvis: OTHER: Tenderness over right flank and right thoracic spine no midline tenderness Extremity: COMMON NORMALS: normal to inspection and full ROM Neuro: COMMON NORMALS: patient oriented x3, moves all extremities and no focal motor deficits Psych: COMMON NORMALS: mental status grossly normal, Normal thought process present and cooperative THOUGHT PROCESS: Normal thought process present Skin: COMMON NORMALS: no rashes or lesions noted and no wounds GENERAL SKIN EXAM: no rashes or lesions noted Course Vital Signs: Vital signs: Vital Signs Temperature 98 F 08/09/21 21:59 Pulse Rate 79 08/09/21 21:59 Respiratory Rate 23 H 08/09/21 22:22 Blood Pressure 212/98 08/09/21 23:00 Pulse Oximetry 96 08/09/21 23:00 MDM - Female [facility] Narrative: Medical decision making narrative: Patient presents with back flank pain is likely muscular in origin she is tender on exam CT of her abdomen shows no acute findings no sign of kidney stone or kidney infection patient's blood work here is all normal as well she has been hypertensive she states that her blood pressures been running high at home as well we will start her on amlodipine she does take a log of her blood pressure and follow-up with her PCP. Lab Data: Labs: Lab Results 08/09/21 08/09/21 08/09/21 22:21 22:21 22:21 WBC 8.0 10^3/uL 10^3/ uL (4.0-10.0) RBC 5.13 10^6/uL 10^6 /uL (4.1-5.3) Hgb 14.5 g/dL g/dL (11.5-15.3) Hct 43.2 % % (37.0-47.0) MCV 84.2 fl fl (81-99) MCH 28.3 pg pg (28.0-34.0) MCHC 33.6 g/dL g/dL (30.0-36.0) RDW 13.4 % % (12.1-15.1) Plt Count 402 10^3/cmm H 10 ^3/cmm (130-400) MPV 8.8 fL fL (7.4-10.4) Neut % (Auto) 55.7 % % Lymph % (Auto) 33.8 % % [place] % (Auto) 7.0 % % Eos % (Auto) 2.1 % % Baso % (Auto) 1.1 % % Neut # (Auto) 4.42 10^3/uL 10^3 /uL (1.8-7.7) Lymph # (Auto) 2.7 10^3/uL 10^3/ uL (0.8-4.8) [place] # (Auto) 0.6 10^3/uL 10^3/ uL (0.2-0.9) Eos # (Auto) 0.2 10^3/uL 10^3/ uL (0.0-0.8) Baso # (Auto) 0.1 10^3/uL 10^3/ uL (0.0-0.1) Nucleated RBC % (a uto) 0 % % Nucleated RBCs # 0.0 /100WBC /100W BC Sodium 138 mmol/L mmol/L (136-145) Potassium 3.7 mmol/L mmol/L (3.5-5.1) Chloride 102 mmol/L mmol/L (98-107) Carbon Dioxide 23 mmol/L mmol/L (22-29) Anion Gap 16.7 (5-19) BUN 11 mg/dL mg/dL (6-20) Creatinine 0.7 mg/dL mg/dL (0.5-0.9) GFR Calculation 88.2 mL/min L mL/ min (90-130) Glucose 82 mg/dL mg/dL (65-115) Calculated Osmolal ity 284 mOsm/kg L mOs m/kg (285-295) Calcium 8.8 mg/dL mg/dL (8.5-10.5) Total Bilirubin 0.2 mg/dL mg/dL (0.15-1.2) AST 25 U/L U/L (0-32) ALT 26 U/L U/L (0-33) Alkaline Phosphata se 106 IU/L H IU/L (35-105) Total Protein 7.4 g/dL g/dL (6.6-8.7) Albumin 4.1 g/dL g/dL (3.5-5.2) Globulin 3.3 g/dL g/dL (1.3-4.6) Urine Color Yellow (Yellow) Urine Appearance Clear (CLEAR) Urine pH 5 (5-7) Ur Specific Gravit y 1.020 (1.005-1.030) Urine Protein Neg (Negative) Urine Glucose (UA) Norm (Normal) Urine Ketones Negative (Negative) Urine Blood Neg (Negative) Urine Nitrate Negative (Negative) Urine Bilirubin Neg (Negative) Urine Urobilinogen Norm mg/dL mg/dL (Negative) Ur Leukocyte Tamiko ase Negative (Negative) Imaging Data: CXR: Attestation: I personally reviewed and interpreted this imaging study as follows: My impression: No acute abnormality CT Abd/Pel: Attestation: I personally reviewed and interpreted this imaging study as follows: Radiologist's impression: [address] [address] [address] Scan Report Signed Patient: Clover Farmer Unit #: [id number] : 1970 Age/Sex: 51 / F ADM Date: 08/09/21 Loc: ER Room/Bed: Attending Dr: Ordering Provider/Ordering MD: Dannie Kumar MD Date of Service: 08/09/21 Procedure(s): CT abdomen pelvis w con* [id number] Accession Number(s): [id number] Report Number: [id number] PROCEDURE INFORMATION: Exam: CT Abdomen And Pelvis With Contrast Exam date and time: 08/09/2021 10:15 PM Age: 51 years old Clinical indication: Abdominal pain; Localized; Right; Prior surgery; Surgery type: Csection; Patient HX: RT sided abd pain. TECHNIQUE: Imaging protocol: Computed tomography of the abdomen and pelvis with contrast. Radiation optimization: All CT scans at this facility use at least one of these dose optimization techniques: automated exposure control; mA and/or kV adjustment per patient size (includes targeted exams where dose is matched to clinical indication); or iterative reconstruction. Contrast material: OMNI 300; Contrast volume: 95 ml; Contrast route: INTRAVENOUS (IV); COMPARISON: CT abdomen pelvis w con* [id number] 10/05/2020 3:27 AM RADIATION DOSE METRICS: Total DLP (mGy-cm): 1804.42 FINDINGS: Liver: Normal. No mass. Gallbladder and bile ducts: Normal. No calcified stones. No ductal dilation. Pancreas: Normal. No ductal dilation. Spleen: Normal. No splenomegaly. Adrenal glands: Normal. No mass. Kidneys and ureters: Normal. No hydronephrosis. Stomach and bowel: Unremarkable. No obstruction. No mucosal thickening. Appendix: No evidence of appendicitis. Intraperitoneal space: Unremarkable. No free air. No significant fluid collection. Vasculature: Unremarkable. No abdominal aortic aneurysm. Lymph nodes: Unremarkable. No enlarged lymph nodes. Urinary bladder: Unremarkable as visualized. Reproductive: Unremarkable as visualized. Bones/joints: No acute fracture. Soft tissues: Unremarkable. CT/CT abdomen pelvis w con* [id number] IMPRESSION: No acute findings. Radiation Dose CTDIVOL = (mGy): DLP = 1804.42 (mGy-cm) Dictated By: Manuelito Finley DO Signed By: Manuelito Finley DO Signed Date/Time: 08/09/212323 DD/ 14 Discharge Plan Discharge Patient Disposition: Home Clinical Impression: Hypertension Back pain Qualifiers: Back pain location: thoracic back pain Chronicity: acute Back pain laterality: right Qualified Code(s): M54.6 - Pain in thoracic spine Condition: Stable Prescriptions: New hydrocodone-acetaminophen 5-325 mg tablet 1 tab PO Q6H PRN (Reason: pain) Qty: 14 RF: 0 methocarbamol 750 mg tablet 750 mg PO Q6H PRN (Reason: spasms) Qty: 20 RF: 0 Naprosyn 500 mg tablet 500 mg PO BID PRN (Reason: pain) Qty: 20 RF: 0 amlodipine 2.5 mg tablet 2.5 mg PO DAILY Qty: 30 RF: 0 No Action sulfamethoxazole-trimethoprim [Bactrim DS] 800-160 mg tablet 1 tab PO Q12H 7 Days Qty: 14 RF: 0 mupirocin 2 % ointment 1 applic topical TID 7 Days Qty: 22 RF: 0 Discharge Orders: Discharge ED (Routine); Ordered 08/09/21 Ordered By: Dannie Kumar Referrals: Washington Bernard DO [Primary Care Provider] - 1-3 days Discharge Diet: Advance as tolerated Discharge Activity: Resume usual activity Patient Instructions: Opioid Safety Coding Level of Care Code ED Grommet Machine Operator for Chg Fwd Exam Comprehensive
[2021-08-09] MEDS: ondansetron 2 mg/ML SDV 2 mL 4 MG IVP ×2 (22:20→23:30)
[2021-08-09 22:22] VITALS: RESP 23
[2021-08-09] MEDS: HYDROmorphone 1 mg/mL INJ 1 mL IVP (22:22)
[2021-08-09] MEDS: sodium chloride 0.9% 1,000 ML 999 ML IV (22:23)
[2021-08-09 22:28] LABS: Basophils # 0.1 10^3/uL (0.0-0.1); Basophils % 1.1 %; Eosinophils # 0.2 10^3/uL (0.0-0.8); Eosinophils % 2.1 %; Hematocrit 43.2 % (37.0-47.0); Hemoglobin 14.5 g/dL (11.5-15.3); Lymphocytes # 2.7 10^3/uL (0.8-4.8); Lymphocytes % 33.8 %; Mean Corpuscular HGB Conc 33.6 g/dL (30.0-36.0); Mean Corpuscular Hemoglobin 28.3 pg (28.0-34.0); Mean Corpuscular Volume 84.2 fl (81-99); Mean Platelet Volume 8.8 fL (7.4-10.4); Monocytes # 0.6 10^3/uL (0.2-0.9); Neutrophils # 4.42 10^3/uL (1.8-7.7); Neutrophils % 55.7 %; Nucleated Red Blood Cells % 0 %; Platelet Count 402 10^3/cmm (130-400); Red Blood Count 5.13 10^6/uL (4.1-5.3); Red Cell Distribution Width 13.4 % (12.1-15.1)
[2021-08-09 22:30] LABS: Add Urine Microscopic? NO; Charge for UA Resulting for Rev
[2021-08-09 22:32] LABS: Bilirubin Urine Neg (Negative); Blood Urine Neg (Negative); Glucose Urine UA Norm (Normal); Ketones Urine Negative (Negative); Leukocyte Esterase Urine Negative (Negative); Nitrate Urine Negative (Negative); Protein Urine Neg (Negative); Urine Appearance Clear (CLEAR); Urine Color Yellow (Yellow); Urobilinogen Urine Norm (Negative); pH Urine 5 (5-7)
[2021-08-09] MEDS: iohexol 300 mg/mL 100 mL Btl IV (22:32)
[2021-08-09 22:54] LABS: Alanine Aminotransferase 26 U/L (0-33); Albumin Level 4.1 g/dL (3.5-5.2); Alkaline Phosphatase 106 IU/L (35-105); Anion Gap 16.7 (5-19); Aspartate Amino Transferase 25 U/L (0-32); Blood Urea Nitrogen 11 mg/dL (6-20); Calcium 8.8 mg/dL (8.5-10.5); Carbon Dioxide 23 mmol/L (22-29); Chloride 102 mmol/L (98-107); Globulin 3.3 g/dL (1.3-4.6); Glomerular Filtration Rate 88.2 mL/min (90-130); Glucose 82 mg/dL (65-115); Osmolality Calculated 284 mOsm/kg (285-295); Potassium 3.7 mmol/L (3.5-5.1); Sodium 138 mmol/L (136-145); Total Bilirubin 0.2 mg/dL (0.15-1.2); Total Protein 7.4 g/dL (6.6-8.7)
[2021-08-09 23:00] VITALS: BP 212/98; O2SAT 96
[2021-08-09] MEDS: labetalol 5 mg/mL SDV 20mL 10 MG IVP (23:15)
[2021-08-09 23:30] VITALS: RESP 18
[2021-08-09] MEDS: morphine 4 mg/mL SDV 1 mL IVP (23:30)
[2021-08-09 23:36] VITALS: BP 139/101; PULSE 65; RESP 19; O2SAT 96
== END 2021-08-09 23:42 | disposition home or self-care (01) ==
PROVIDERS: Emergency Provider Emergency Medicine; PCP Family Medicine
DX: M54.6 Pain in thoracic spine (principal); I10 Essential (primary) hypertension
CPT/HCPCS: 71045; 74177; 80053; 81003; 85025; 96361; 96374; 96375; 96376; 99284; J1170; J2270; J2405; J3490; J7030; Q9967

== ENCOUNTER → 2021-11-01 15:11 | Outpatient (BNVA) | payer MEDICAID, SELFPAY ==
[2021-01-05 15:24] VITALS: BP 166/97; BMI 35.0
== END ==
PROVIDERS: PCP Family Medicine; Visit Provider Nurse Practitioner Family
DX: Z20.822 Contact with and (suspected) exposure to COVID-19 (principal)
CPT/HCPCS: 87635

== ENCOUNTER 2021-11-02 23:14 | Emergency (ER) | payer MEDICAID, SELFPAY ==
[2021-01-05 15:24] VITALS: BP 166/97; BMI 35.0
[2021-11-02 23:26] VITALS: BP 178/99; PULSE 77; RESP 18; TEMP 36.7; O2SAT 97; BMI 36.6
--- NOTE | 2021-11-02 23:35 | XRR_ITS ---
PROCEDURE INFORMATION: Exam: XR Chest Exam date and time: 11/02/2021 11:35 PM Age: 51 years old Clinical indication: Cough and shortness of breath; Patient HX: Cough with congestion and SOB. Covid + TECHNIQUE: Imaging protocol: XR of the chest. Views: 1 view. COMPARISON: CR XR chest 1V portable [id number] 08/09/2021 10:26 PM FINDINGS: Lungs: Mild left lateral basilar atelectasis and/or infiltrate and/or effusion. Pleural spaces: Unremarkable. No pleural effusion. No pneumothorax. Heart/Mediastinum: Unremarkable. No cardiomegaly. Bones/joints: Moderate thoracic spondylosis. XR/XR chest 1V portable [id number] IMPRESSION: Mild left lateral basilar atelectasis and/or infiltrate and/or effusion.
--- NOTE | 2021-11-02 23:41 | ED_ITS ---
HPI - URI/Sore Throat General: Chief Complaint: Upper Respiratory Infection Stated Complaint: covid +,not feeling well Time Seen by Provider: 11/02/21 23:15 Source: patient Mode of arrival: ambulatory Limitations: no limitations History of Present Illness: 51-year-old female who states that she has had a cough and fever for the last 4 to 5 days. She she did test positive for COVID yesterday and was concerned about getting pneumonia. States she has had some slight increased dyspnea today and just been feeling unwell with body aches. She is in no distress here she is able speak in full sentences pulse ox 98% on room air. She had no vomiting or diarrhea. Associated symptoms: Reports chills and fever(s); Deny abdominal pain, chest pain, diarrhea, headache(s), nausea or vomiting Review of Systems Const: Reports: fever(s), chills and body aches Eyes: Denies: blurry vision or eye discomfort ENMT: Denies: throat pain or dental pain Card: Denies: chest pain Resp: Reports: dyspnea GI: Denies: abdominal pain, nausea, vomiting or diarrhea : Denies: dysuria Musc: Denies: neck pain or back pain Skin/Breast: Denies: rash Neuro: Denies: headache(s) Psych: Denies: depression Kailash/Lymph: Denies: easy bruising All/Imm: Denies: urticaria PFSH ED PFSH: Medical History Left ureteral calculus Other obsessive-compulsive disorder Psychiatric care Recurrent major depressive disorder, in partial remission Family History Father Hypertension CAD (coronary artery disease) Hyperlipidemia Cancer Brother Hypertension CAD (coronary artery disease) Hyperlipidemia Grandfather CAD (coronary artery disease) Hypertension Mother Hyperlipidemia Social History Smoking and tobacco status: never smoked Alcohol intake: never History of recent travel: No Current gender identity: Female Female Reproductive History: Date of last menstrual period: 09/13/20 Physical Exam Const: COMMON NORMALS: no acute distress, patient oriented x3 and healthy appearing HENMT: COMMON NORMALS: normocephalic and atraumatic HEAD & SCALP: normocephalic and atraumatic Eye: COMMON NORMALS: Equal, round and reactive pupils present and EOMs intact bilaterally PUPIL: Yes Equal, round and reactive pupils present Neck/C-Spine: COMMON NORMALS: full ROM and supple Chest: COMMONS NORMALS: normal inspection of the chest and normal palpation of entire chest wall Resp: COMMON NORMALS: normal respiratory effort, No retractions, No use of accessory muscles and clear to auscultation bilaterally AUSCULTATION: clear to auscultation bilaterally Cardio: COMMON NORMALS: regular rate, regular rhythm and No murmurs present (Cardio) RATE: regular rate RHYTHM: regular rhythm GI: COMMON NORMALS: Normal to inspection, nondistended, normoactive bowel sounds present, Soft to palpation, non-tender and no masses PALPATION: Yes Soft to palpation Extremity: COMMON NORMALS: normal to inspection and full ROM Neuro: COMMON NORMALS: patient oriented x3, moves all extremities and no focal motor deficits Psych: COMMON NORMALS: mental status grossly normal, Normal thought process present and cooperative THOUGHT PROCESS: Normal thought process present Skin: COMMON NORMALS: no rashes or lesions noted and no wounds GENERAL SKIN EXAM: no rashes or lesions noted Course Vital Signs: Vital signs: Vital Signs Temperature 98.1 F 11/02/21 23:26 Pulse Rate 74 11/02/21 23:55 Respiratory Rate 16 11/02/21 23:55 Blood Pressure 178/99 11/02/21 23:26 Pulse Oximetry 99 11/02/21 23:55 MDM - URI/Sore Throat Medical Decision Making Patient presents with cough congestion fever likely from her Covid. She is in no distress here no hypoxia x-ray here is clear will prescribe her an albuterol inhaler she is stable for discharge is to follow-up PCP and return if worsening she understands agrees to plan. Discharge Plan Discharge Patient Disposition: Home Clinical Impression: Upper respiratory infection Qualifiers: URI type: unspecified URI Qualified Code(s): J06.9 - Acute upper respiratory infection, unspecified Condition: Stable Prescriptions: New albuterol sulfate 90 mcg/actuation HFA aerosol inhaler 2 inh INHALATION Q6H PRN (Reason: shortness of breath or wheezing) Qty: 8 0RF No Action diclofenac sodium 25 mg tablet,delayed release (DR/EC) 25 mg PO DAILY PRN (Reason: pain) 0RF amlodipine 2.5 mg tablet 2.5 mg PO DAILY Qty: 30 0RF Discharge Orders: Discharge ED (Routine); Ordered 11/03/21 Ordered By: Dannie Kumar Referrals: Washington Bernard DO [Primary Care Provider] - 1-3 days Discharge Diet: Advance as tolerated Discharge Activity: Resume usual activity Patient Instructions: Upper Respiratory Infection (ED) Coding Level of Care Code ED Document Imaging Manager for Chg Fwd Exam Comprehensive
[2021-11-02] MEDS: albuterol 8 gm MDI 2 PUFF INHALATION (23:54)
[2021-11-02 23:55] VITALS: PULSE 74; RESP 16; O2SAT 99
[2021-11-02] MEDS: dexamethasone 10 mg/mL INJ IM (23:56)
[2021-11-03 00:15] VITALS: RESP 17; O2SAT 97
== END 2021-11-03 00:16 | disposition home or self-care (01) ==
PROVIDERS: Emergency Provider Emergency Medicine; PCP Family Medicine
DX: U07.1 COVID-19 (principal)
CPT/HCPCS: 71045; 94640; 96372; 99283; J1100; J3535

== ENCOUNTER 2021-11-14 12:00 | Outpatient (CLI) | payer MEDICAID, SELFPAY ==
[2021-01-05 15:24] VITALS: BP 166/97; BMI 35.0
--- NOTE | 2021-11-14 | XR_ITS ---
WS: [id number] KUB, AP view, 11/14/2021 Clinical Data: LEFT URETERAL CALCULUS Comparison: KUB, 11/08/2020. Findings: No abnormal intraabdominal masses or calcifications are seen. There is no dilatated small bowel or ev idence of obstruction. There are phleboliths on the left side of the true pelvis. XR/XR KUB [id number] Impression: Negative KUB.
== END 2021-11-14 12:01 | disposition home or self-care (01) ==
LOC: RAD 12:03
PROVIDERS: PCP Family Medicine; Visit Provider Urology
DX: N20.1 Calculus of ureter (principal)
CPT/HCPCS: 74018

== ENCOUNTER → 2022-01-24 12:32 | Outpatient (BNVA) | payer MEDICAID, SELFPAY ==
[2021-12-27 13:50] VITALS: BP 166/97; BMI 35.0
== END ==
PROVIDERS: PCP Family Medicine; Visit Provider Counselor Mental Health
DX: F41.1 Generalized anxiety disorder (principal)
CPT/HCPCS: 90791

== ENCOUNTER 2022-02-05 14:26 | Outpatient (CLI) | payer MEDICAID, SELFPAY ==
[2021-12-27 13:50] VITALS: BP 166/97; BMI 35.0
--- NOTE | 2022-02-05 14:50 | XR_ITS ---
WS: [id number] Exam: XR KUB [id number] Date/Time of Exam: 02/05/2022 2:52 PM Reason For Exam: UROLITHIASIS Comparison 11/14/2021. No bowel obstruction or free air. No calcifications noted in the region of the kidneys. 2 small left- sided pelvic calcifications are noted and are unchanged. No sign of organ enlargement. Bony structure s are intact. XR/XR KUB [id number] IMPRESSION: 1. No acute abdominal finding.
== END 2022-02-05 14:27 | disposition home or self-care (01) ==
LOC: RAD 14:28
PROVIDERS: PCP Family Medicine; Visit Provider Urology
DX: N20.9 Urinary calculus, unspecified (principal)
CPT/HCPCS: 74018; 81003; 99213

== ENCOUNTER → 2022-02-08 11:25 | Outpatient (BNVA) | payer MEDICAID, SELFPAY ==
[2021-12-27 13:50] VITALS: BP 166/97; BMI 35.0
== END ==
PROVIDERS: PCP Family Medicine; Visit Provider Nurse Practitioner
DX: F33.0 Major depressive disorder, recurrent, mild (principal); R41.83 Borderline intellectual functioning
CPT/HCPCS: 90792

== ENCOUNTER 2022-05-02 21:23 | Emergency (ER) | payer MEDICAID, SELFPAY ==
[2021-12-27 13:50] VITALS: BP 166/97; BMI 35.0
--- NOTE | 2022-05-02 21:25 | XRR_ITS ---
PROCEDURE INFORMATION: Exam: XR Right Foot Exam date and time: 05/02/2022 10:19 PM Age: 51 years old Clinical indication: Injury or trauma; Fall; Blunt trauma; Foot; Right; Additional info: Foot injury TECHNIQUE: Imaging protocol: Radiologic exam of the Right foot. Views: 3 or more views. COMPARISON: CR (LOW EXM, ) 05/02/2022 10:10 PM FINDINGS: Bones/joints: There is no evidence of fracture or dislocation. There are some degenerative changes in the midfoot along the cuboid calcaneal joint. Soft tissues: Normal. XR/XR foot RT min 3V* [id number] IMPRESSION: Degenerative changes. No fracture is identified.
[2022-05-02 21:28] VITALS: BP 146/66; PULSE 78; RESP 16; TEMP 36.7; O2SAT 98; BMI 36.6
--- NOTE | 2022-05-02 21:57 | XRR_ITS ---
PROCEDURE INFORMATION: Exam: XR Right Tibia and Fibula Exam date and time: 05/02/2022 10:10 PM Age: 51 years old Clinical indication: Injury or trauma; Fall; Blunt trauma; Lower leg; Right TECHNIQUE: Imaging protocol: Radiologic exam of the Right tibia and fibula. Views: 2 views. COMPARISON: No relevant prior studies available. FINDINGS: Bones/joints: Normal. Soft tissues: Normal. XR/XR tibia fibula RT 2V [id number] IMPRESSION: No acute findings.
--- NOTE | 2022-05-02 21:57 | W.ED.EXTPRO ---
HPI - Extremity Problem General: Chief complaint: Extremity Injury, Lower Stated complaint: Right Foot Injury Time Seen by Provider: 05/02/22 21:38 Source: patient Mode of arrival: ambulatory Limitations: no limitations History of Present Illness: 51-year-old female states she had a trailer hitch on her right foot. She states he landed on top of her foot she has having contusion and pain in that foot states the pain radiates up her leg. States is worse with ambulation improved with rest she rates her pain a 4 out of 10 currently denies any other injuries. Associated symptoms: Deny chest pain, fever(s) or rash Review of Systems Const: Denies: fever(s), chills, body aches or change in appetite Eyes: Denies: blurry vision or eye discomfort ENMT: Denies: throat pain or dental pain Card: Denies: chest pain Resp: Denies: dyspnea GI: Denies: abdominal pain, nausea, vomiting or diarrhea : Denies: dysuria Musc: Reports: extremity pain Skin/Breast: Denies: rash Neuro: Denies: headache(s) Psych: Denies: depression Kailash/Lymph: Denies: easy bruising All/Imm: Denies: urticaria PFSH ED PFSH: Medical History Borderline intellectual functioning Left ureteral calculus Major depressive disorder, recurrent, mild Other obsessive-compulsive disorder Psychiatric care Recurrent major depressive disorder, in partial remission Urolithiasis Family History Father Hypertension CAD (coronary artery disease) Hyperlipidemia Cancer Brother Hypertension CAD (coronary artery disease) Hyperlipidemia Grandfather CAD (coronary artery disease) Hypertension Mother Hyperlipidemia Social History Smoking and tobacco status: never smoked Alcohol intake: never History of recent travel: No Current gender identity: Female Female Reproductive History: Date of last menstrual period: 02/27/22 Physical Exam Const: COMMON NORMALS: no acute distress, patient oriented x3 and healthy appearing HENMT: COMMON NORMALS: normocephalic and atraumatic HEAD & SCALP: normocephalic and atraumatic Eye: COMMON NORMALS: Equal, round and reactive pupils present and EOMs intact bilaterally PUPIL: Yes Equal, round and reactive pupils present Neck/C-Spine: COMMON NORMALS: full ROM and supple Chest: COMMONS NORMALS: normal inspection of the chest and normal palpation of entire chest wall Resp: COMMON NORMALS: normal respiratory effort, No retractions, No use of accessory muscles and clear to auscultation bilaterally AUSCULTATION: clear to auscultation bilaterally Cardio: COMMON NORMALS: regular rate, regular rhythm and No murmurs present (Cardio) RATE: regular rate RHYTHM: regular rhythm GI: COMMON NORMALS: Normal to inspection, nondistended, normoactive bowel sounds present, Soft to palpation, non-tender and no masses PALPATION: Yes Soft to palpation Extremity: NARRATIVE EXTREMITY EXAM: Tenderness to right foot no obvious deformity some slight tenderness up the tibia he does have a contusion to the foot Neuro: COMMON NORMALS: patient oriented x3, moves all extremities and no focal motor deficits Psych: COMMON NORMALS: mental status grossly normal, Normal thought process present and cooperative THOUGHT PROCESS: Normal thought process present Skin: COMMON NORMALS: no rashes or lesions noted and no wounds GENERAL SKIN EXAM: no rashes or lesions noted Course Vital Signs: Vital signs: Vital Signs Temperature 98.1 F 05/02/22 21:28 Pulse Rate 78 05/02/22 21:28 Respiratory Rate 16 05/02/22 21:28 Blood Pressure 146/66 05/02/22 21:28 Pulse Oximetry 98 05/02/22 21:28 Oxygen Delivery Me thod 05/02/22 21:28 MDM - Extremity (Nontraumatic) Medical Decision Making Patient presents here with a foot contusion x-ray shows no fracture she is stable for discharge she is to follow-up with her PCP and return if worsening. Discharge Plan Discharge Patient Disposition: Home Clinical Impression: Contusion of foot, left Qualifiers: Encounter type: initial encounter Qualified Code(s): S90.32XA - Contusion of left foot, initial encounter Condition: Stable Prescriptions: New Naprosyn 500 mg tablet 500 mg PO BID PRN (Reason: pain) Qty: 20 0RF No Action diclofenac sodium 25 mg tablet,delayed release (DR/EC) 25 mg PO DAILY PRN (Reason: pain) trazodone 50 mg tablet 50 mg PO .HS Qty: 30 2RF duloxetine [Cymbalta] 60 mg capsule,delayed release(DR/EC) 60 mg PO DAILY Qty: 30 2RF amlodipine 2.5 mg tablet 2.5 mg PO DAILY Qty: 30 0RF albuterol sulfate 90 mcg/actuation HFA aerosol inhaler 2 inh INHALATION Q6H PRN (Reason: shortness of breath or wheezing) Qty: 8 0RF Discharge Orders: Discharge ED (Routine); Ordered 05/02/22 Ordered By: Dannie Kumar Referrals: Washington Bernard, [Primary Care Provider] - 1-3 days Discharge Diet: Advance as tolerated Discharge Activity: Resume usual activity Patient Instructions: Contusion in Adults (ED) Coding Level of Care Code ED Box Person for Mervatg Fwd Exam Comprehensive
[2022-05-02] MEDS: HYDROcodone-acetaminophen 5-325 mg Tablet 1 TAB PO (22:03)
== END 2022-05-02 22:38 | disposition home or self-care (01) ==
PROVIDERS: Emergency Provider Emergency Medicine; PCP Family Medicine
DX: S90.32XA Contusion of left foot, initial encounter (principal); W20.8XXA Other cause of strike by thrown, projected or falling object, initial encounter
CPT/HCPCS: 73590; 73630; 99283

== ENCOUNTER 2022-05-29 09:35 | Emergency (ER) | payer MEDICAID, SELFPAY ==
[2021-12-27 13:50] VITALS: BP 166/97; BMI 35.0
[2022-05-29 09:38] VITALS: BP 153/79; PULSE 74; RESP 16; TEMP 36.1; O2SAT 95; BMI 37.6
[2022-05-29 10:09] LABS: Basophils # 0.1 10^3/uL (0.0-0.1); Basophils % 0.8 %; Eosinophils # 0.2 10^3/uL (0.0-0.8); Eosinophils % 2.4 %; Hematocrit 44.1 % (37.0-47.0); Hemoglobin 14.4 g/dL (11.5-15.3); Lymphocytes # 1.7 10^3/uL (0.8-4.8); Lymphocytes % 28.1 %; Mean Corpuscular HGB Conc 32.7 g/dL (30.0-36.0); Mean Corpuscular Hemoglobin 28.2 pg (28.0-34.0); Mean Corpuscular Volume 86.5 fl (81-99); Mean Platelet Volume 9.2 fL (7.4-10.4); Monocytes # 0.5 10^3/uL (0.2-0.9); Monocytes % 8.1 %; Neutrophils # 3.74 10^3/uL (1.8-7.7); Neutrophils % 60.4 %; Nucleated Red Blood Cells % 0 %; Platelet Count 344 10^3/cmm (130-400); Red Cell Distribution Width 13.4 % (12.1-15.1); White Blood Count 6.2 10^3/uL (4.0-10.0)
[2022-05-29 10:27] LABS: Anion Gap 15.4 (5-19); Blood Urea Nitrogen 12 mg/dL (6-20); Calcium 9.3 mg/dL (8.5-10.5); Carbon Dioxide 25 mmol/L (22-29); Chloride 104 mmol/L (98-107); Glomerular Filtration Rate 75.6 mL/min (90-130); Glucose 113 mg/dL (65-115); Osmolality Calculated 293 mOsm/kg (285-295); Potassium 3.4 mmol/L (3.5-5.1); Sodium 141 mmol/L (136-145)
[2022-05-29 10:42] LABS: Add Urine Microscopic? NO; Charge for UA Resulting for Rev
--- NOTE | 2022-05-29 10:55 | W.ED.ABDPA2 ---
HPI - Abdominal Pain General: Chief Complaint: Abdominal Pain Stated Complaint: Very painful on right side of body Time Seen by Provider: 05/29/22 09:55 Source: patient Mode of arrival: ambulatory History of Present Illness: 51-year-old female complaining of right flank and mid back pain. She has had this for over a year she has been evaluated in the urine by her primary care doctor. She denies any dysuria urgency or frequency they thought it was a pulled muscle she was also evaluated with urology for a kidney stone which was negative. She cannot recall any trauma or specific injury. She denies any fever sweats chills vomiting or diarrhea she has not had any rash. MD elicited complaint: abdominal pain Pertinent past history: none Onset (ago): day(s) Pain Consistency: constant Location: L flank Severity: moderate Quality: cramping Radiation: none Migration to: no migration Exacerbating factors: nothing Relieving factors: nothing Associated Symptoms: Reports constipation, GI cramping, nausea and poor appetite; Denies anorexia, belching, bloating, change in bowel habits, change in stool character, chills, coffee ground emesis, diarrhea, dyspepsia, dysuria, excessive flatus, fever(s), heartburn, hematochezia, hematuria, hematemesis, fecal incontinence, loose stools, melena, syncope and vomiting Related Data: Date of Last Menstrual Period: 02/27/22 Review of Systems Const: Reports: fatigue and malaise; Denies: fever(s) or chills ENMT: Denies: throat pain, ear or mastoid pain, nasal discharge or nasal congestion Card: Denies: syncope Resp: Denies: dyspnea, productive cough or non-productive cough GI: Reports: abdominal pain, nausea, constipation and GI cramping; Denies: vomiting, hematemesis, coffee ground emesis, heartburn, diarrhea, bloating, belching, excessive flatus, fecal incontinence, change in bowel habits, change in stool character, hematochezia or melena : Denies: flank pain, difficulty voiding, dysuria, urinary frequency, urinary urgency or hematuria Skin/Breast: Denies: rash or pruritus PFSH ED PFSH: Medical History Borderline intellectual functioning Left ureteral calculus Major depressive disorder, recurrent, mild Other obsessive-compulsive disorder Psychiatric care Recurrent major depressive disorder, in partial remission Urolithiasis Family History Father Hypertension CAD (coronary artery disease) Hyperlipidemia Cancer Brother Hypertension CAD (coronary artery disease) Hyperlipidemia Grandfather CAD (coronary artery disease) Hypertension Mother Hyperlipidemia Social History Smoking and tobacco status: never smoked Alcohol intake: never History of recent travel: No Current gender identity: Female Female Reproductive History: Date of last menstrual period: 02/27/22 Course Vital Signs: Vital signs: Vital Signs Temperature 97 F L 05/29/22 09:38 Pulse Rate 71 05/29/22 11:06 Respiratory Rate 16 05/29/22 11:06 Blood Pressure 142/77 05/29/22 11:06 Pulse Oximetry 97 05/29/22 11:06 Oxygen Delivery Me thod 05/29/22 11:06 MDM - Abdominal Pain Medical Decision Making Labs and imaging unremarkable discharge patient home. Start omeprazole 20 p.o. daily and can use diclofenac. Follow-up as needed Medical Records I reviewed the patient's medical records. Lab Data I reviewed the patient's lab results. : 05/29/22 10:00 05/29/22 10:00 Labs/Radiology: Laboratory Results WBC 6.2 10^3/uL (4.0-10.0) 05/29/22 10:00 RBC 5.10 10^6/uL (4.1-5.3) 05/29/22 10:00 Hgb 14.4 g/dL (11.5-15.3) 05/29/22 10:00 Hct 44.1 % (37.0-47.0) 05/29/22 10:00 MCV 86.5 fl (81-99) 05/29/22 10:00 MCH 28.2 pg (28.0-34.0) 05/29/22 10:00 MCHC 32.7 g/dL (30.0-36.0) 05/29/22 10:00 RDW 13.4 % (12.1-15.1) 05/29/22 10:00 Plt Count 344 10^3/cmm (130-400) 05/29/22 10:00 MPV 9.2 fL (7.4-10.4) 05/29/22 10:00 Neut % (Auto) 60.4 % 05/29/22 10:00 Lymph % (Auto) 28.1 % 05/29/22 10:00 [place] % (Auto) 8.1 % 05/29/22 10:00 Eos % (Auto) 2.4 % 05/29/22 10:00 Baso % (Auto) 0.8 % 05/29/22 10:00 Neut # (Auto) 3.74 10^3/uL (1.8-7.7) 05/29/22 10:00 Lymph # (Auto) 1.7 10^3/uL (0.8-4.8) 05/29/22 10:00 [place] # (Auto) 0.5 10^3/uL (0.2-0.9) 05/29/22 10:00 Eos # (Auto) 0.2 10^3/uL (0.0-0.8) 05/29/22 10:00 Baso # (Auto) 0.1 10^3/uL (0.0-0.1) 05/29/22 10:00 Nucleated RBC % (auto) 0 % 05/29/22 10:00 Nucleated RBCs # 0.0 /100WBC 05/29/22 10:00 Sodium 141 mmol/L (136-145) 05/29/22 10:00 Potassium 3.4 mmol/L (3.5-5.1) L 05/29/22 10:00 Chloride 104 mmol/L (98-107) 05/29/22 10:00 Carbon Dioxide 25 mmol/L (22-29) 05/29/22 10:00 Anion Gap 15.4 (5-19) 05/29/22 10:00 BUN 12 mg/dL (6-20) 05/29/22 10:00 Creatinine 0.8 mg/dL (0.5-0.9) 05/29/22 10:00 GFR Calculation 75.6 mL/min (90-130) L 05/29/22 10:00 Glucose 113 mg/dL (65-115) 05/29/22 10:00 Calculated Osmolality 293 mOsm/kg (285-295) 05/29/22 10:00 Calcium 9.3 mg/dL (8.5-10.5) 05/29/22 10:00 Urine Color Yellow (Yellow) 05/29/22 10:30 Urine Appearance Clear (CLEAR) 05/29/22 10:30 Urine pH 5 (5-7) 05/29/22 10:30 Ur Specific [place] 1.030 (1.005-1.030) 05/29/22 10:30 Urine Protein Neg (Negative) 05/29/22 10:30 Urine Glucose (UA) Norm (Normal) 05/29/22 10:30 Urine Ketones 1+ (Negative) H 05/29/22 10:30 Urine Blood Neg (Negative) 05/29/22 10:30 Urine Nitrate Negative (Negative) 05/29/22 10:30 Urine Bilirubin Neg (Negative) 05/29/22 10:30 Urine Urobilinogen Norm mg/dL (Negative) 05/29/22 10:30 Ur Leukocyte Esterase Negative (Negative) 05/29/22 10:30 Discharge Plan Discharge Patient Disposition: Home Clinical Impression: Chronic mid back pain Condition: Stable Prescriptions: New diclofenac sodium 75 mg tablet,delayed release (DR/EC) 75 mg PO Q12H PRN (Reason: pain) Qty: 20 0RF prednisone 20 mg tablet 20 mg PO TID Qty: 15 0RF Rx Instructions: 1 p.o. 3 times daily x3 days, 1 p.o. twice daily x2 days, 1 p.o. daily x2 days Discontinued naproxen [Naprosyn] 500 mg tablet 500 mg PO BID PRN (Reason: pain) Qty: 20 0RF No Action trazodone 50 mg tablet 50 mg PO .HS Qty: 30 2RF fluoxetine [Prozac] 20 mg capsule 20 mg PO DAILY Qty: 30 1RF amlodipine 2.5 mg tablet 2.5 mg PO DAILY Qty: 30 0RF albuterol sulfate 90 mcg/actuation HFA aerosol inhaler 2 inh INHALATION Q6H PRN (Reason: shortness of breath or wheezing) Qty: 8 0RF Discharge Orders: Discharge ED (Routine); Ordered 05/29/22 Ordered By: Donnie Chandra Referrals: Washington Bernard DO [Primary Care Provider] - Discharge Diet: Usual diet Discharge Activity: Increase activity as tolerated Patient Instructions: Opioid Safety, Pain Management Activity Restrictions/Additional Instructions: If symptoms persist follow-up with your primary care doctor. Take medicines with food Coding Level of Care Code ED Joint Yarner for Pat Soto
[2022-05-29 11:04] LABS: Bilirubin Urine Neg (Negative); Blood Urine Neg (Negative); Glucose Urine UA Norm (Normal); Ketones Urine 1+ (Negative); Leukocyte Esterase Urine Negative (Negative); Nitrate Urine Negative (Negative); Protein Urine Neg (Negative); Urine Appearance Clear (CLEAR); Urine Color Yellow (Yellow); Urobilinogen Urine Norm (Negative); pH Urine 5 (5-7)
[2022-05-29 11:06] VITALS: BP 142/77; PULSE 71; RESP 16; O2SAT 97
== END 2022-05-29 11:17 | disposition home or self-care (01) ==
PROVIDERS: Emergency Provider Family Medicine; PCP Family Medicine
DX: M54.9 Dorsalgia, unspecified (principal); G89.29 Other chronic pain
CPT/HCPCS: 36415; 80048; 81003; 85025; 99283

== ENCOUNTER 2022-08-29 16:12 | Emergency (ER) | payer MEDICAID, SELFPAY ==
[2021-12-27 13:50] VITALS: BP 166/97; BMI 35.0
[2022-08-29 16:33] VITALS: BP 183/87; PULSE 78; RESP 18; TEMP 37.1; O2SAT 98
--- NOTE | 2022-08-29 16:41 | W.ED.EXTPRO ---
Documented by User: ALEXANDRIA Lieberman 08/31/22 10:08 HPI - Extremity Problem General: Chief complaint: Extremity Injury, Lower Stated complaint: right foot injury Time Seen by Provider: 08/29/22 16:41 History of Present Illness: Patient is a 52-year-old female comes to the ED with right foot injury. Patient says she was working with a heavy wooden board and it fell over 5 feet in height and landed right on the distal aspect of her right foot. Injury occurred approximate hour before arrival. She now has 5 out of 10 pain in her right foot with swelling and ecchymosis of right foot as well. She has not taken anything for pain before coming to the ED. Associated symptoms: Deny chest pain, fever(s) or rash Review of Systems Const: Denies: fever(s), chills or fatigue Eyes: Denies: change in vision or eye discomfort ENMT: Denies: throat pain, odynophagia, nasal discharge or nasal congestion Card: Denies: chest pain, palpitations, edema, swelling of feet/ankles, dyspnea on exertion or orthopnea Resp: Denies: dyspnea, productive cough or non-productive cough GI: Denies: abdominal pain, nausea, vomiting, diarrhea, constipation or hematochezia : Denies: flank pain, dysuria or hematuria Musc: Reports: extremity pain (right foot) and extremity swelling (right foot); Denies: neck pain or back pain Skin/Breast: Denies: rash or new lesions Neuro: Denies: headache(s), numbness in extremities or weakness in extremities [facility] ED PFSH: Medical History Borderline intellectual functioning Left ureteral calculus Major depressive disorder, recurrent, mild Other obsessive-compulsive disorder Psychiatric care Recurrent major depressive disorder, in partial remission Urolithiasis Family History Father Hypertension CAD (coronary artery disease) Hyperlipidemia Cancer Brother Hypertension CAD (coronary artery disease) Hyperlipidemia Grandfather CAD (coronary artery disease) Hypertension Mother Hyperlipidemia Social History Smoking and tobacco status: never smoked Alcohol intake: never History of recent travel: No Current gender identity: Female Female Reproductive History: Date of last menstrual period: 02/27/22 Physical Exam Const: COMMON NORMALS: patient oriented x3 HENMT: COMMON NORMALS: normocephalic HEAD & SCALP: normocephalic MOUTH: Normal oral and palatal mucosa present THROAT: posterior oropharynx normal and uvula midline Neck/C-Spine: COMMON NORMALS: supple GENERAL: Yes normal visual inspection Resp: COMMON NORMALS: normal respiratory effort, No retractions, No use of accessory muscles and clear to auscultation bilaterally AUSCULTATION: clear to auscultation bilaterally Cardio: COMMON NORMALS: regular rate, regular rhythm, S1 normal heart sound present, S2 normal heart sound present, No gallops present (Cardio), No clicks present (Cardio), No murmurs present (Cardio) and Peripheral pulses 2+ throughout RATE: regular rate RHYTHM: regular rhythm HEART SOUNDS: S1 normal heart sound present and S2 normal heart sound present PERIPHERAL PULSES: Peripheral pulses 2+ throughout GI: COMMON NORMALS: Normal to inspection, nondistended, normoactive bowel sounds present, Soft to palpation, non-tender and no masses PALPATION: Yes Soft to palpation : COMMON NORMALS: Yes no CVA tenderness BLADDER/KIDNEY EXAM: Yes no CVA tenderness Back/Pelvis: COMMON NORMALS: no CVA tenderness Extremity: RIGHT LOWER EXTREMITY: Yes foot & digits Right foot and digits: Yes inspection (No visible deformity, ecchymosis and swelling around midfoot), Yes palpation (Tenderness over midfoot), Yes ROM (Range of motion in toes due to pain) and Yes neurovascular exam (Neurovascular intact) Neuro: COMMON NORMALS: patient oriented x3 GAIT: Yes Normal gait present Skin: GENERAL SKIN EXAM: dry skin Course Vital Signs: Vital signs: Vital Signs Temperature 98.7 F 08/29/22 16:33 Pulse Rate 78 08/29/22 16:33 Respiratory Rate 18 08/29/22 16:33 Blood Pressure 183/87 08/29/22 16:33 Pulse Oximetry 98 08/29/22 16:33 MDM - Extremity (Nontraumatic) Lab Data Radiology Impressions Foot X-Ray 08/29/22 16:48 IMPRESSION: No acute skeletal finding. Discharge Plan Discharge Patient Disposition: Home Clinical Impression: Contusion of foot, right, Hematoma of right foot Condition: Stable Prescriptions: New Voltaren Arthritis Pain 1 % gel 4 g topical QID Qty: 100 0RF Rx Instructions: apply to single knee, ankle, foot; for foot includes sole/toes/top of foot naproxen 500 mg tablet 500 mg PO BID PRN (Reason: pain) Qty: 20 0RF No Action trazodone 50 mg tablet 50 mg PO .HS Qty: 30 2RF fluoxetine [Prozac] 40 mg capsule 40 mg PO DAILY Qty: 30 1RF amlodipine 2.5 mg tablet 2.5 mg PO DAILY Qty: 30 0RF albuterol sulfate 90 mcg/actuation HFA aerosol inhaler 2 inh INHALATION Q6H PRN (Reason: shortness of breath or wheezing) Qty: 8 0RF Discharge Orders: Discharge ED (Routine); Ordered 08/29/22 Ordered By: Lani Walter Referrals: Washington Bernard, [Primary Care Provider] - Discharge Activity: Limit activity as instructed Patient Instructions: Contusion, Hematoma (ED), Bone Bruise (ED) Activity Restrictions/Additional Instructions: X-rays today are negative for any signs of acute fracture however, you have a significant amount of swelling indicative of a contusion and hematoma. There is soft tissue swelling visible on your x-ray which does correlate with this finding. It is possible that you can also have bruising of your bones which is very tender and sore for a couple of weeks. We recommend keeping your foot up and elevated, applying ice for 15 to 20 minutes, multiple times throughout the day and, we have given you a protective postop shoe to wear for the next several days to help protect your foot and of also provided use medication to help with pain. We recommend a follow-up with your primary care doctor next week for recheck if needed. Sign Out Sign Out Data: Patient Sign Out occurred on 08/29/22 at 17:11. Patient's care was discussed, and care was transferred from to ALEXANDRIA Musa. Post-Handoff Eval: Patient is in no distress with an icepack on her foot and foot elevated. Large amount of swelling and hematoma present on initial bedside evaluation. Coding Level of Care Code ED [employer] Coordinator for Chg Fwd Exam Comprehensive Documented by User: ALEXANDRIA Musa 08/29/22 18:08 HPI - Extremity Problem General: Chief complaint: Extremity Injury, Lower Stated complaint: right foot injury Time Seen by Provider: 08/29/22 16:41 PFSH ED PFSH: Medical History Borderline intellectual functioning Left ureteral calculus Major depressive disorder, recurrent, mild Other obsessive-compulsive disorder Psychiatric care Recurrent major depressive disorder, in partial remission Urolithiasis Family History Father Hypertension CAD (coronary artery disease) Hyperlipidemia Cancer Brother Hypertension CAD (coronary artery disease) Hyperlipidemia Grandfather CAD (coronary artery disease) Hypertension Mother Hyperlipidemia Social History Smoking and tobacco status: never smoked Alcohol intake: never History of recent travel: No Current gender identity: Female Course Vital Signs: Vital signs: Vital Signs Temperature 98.7 F 08/29/22 16:33 Pulse Rate 78 08/29/22 16:33 Respiratory Rate 18 08/29/22 16:33 Blood Pressure 183/87 08/29/22 16:33 Pulse Oximetry 98 08/29/22 16:33 MDM - Extremity (Nontraumatic) Medical Decision Making Patient care transferred to myself (Jose Angel HAND) from Calvin Palomino PA-C. X-rays have been obtained but not finalized by radiology at this time. Patient presented to the emergency department today for evaluation treatment of injury sustained to the top of her right foot. Patient's x-ray was negative for any acute signs of bony abnormality however, she does have quite a bit of soft tissue swelling both on physical exam and through her x-ray interpretation. Discussed with patient foot and bone contusions in addition to hematomas of the skin. Patient is put into a protective postop shoe which I encouraged her to wear for several days. We went over at home RICE therapy and patient was provided topical anti-inflammatory/pain medication in addition to oral NSAIDs. Patient was encouraged to follow-up with her primary care doctor next week if needed for any continued pain or difficulty with ambulation as she may require a recheck of her injury if not improving with conservative management. Differential Diagnosis Likely lower extremity edema (contusion, hematoma, fracture) Lab Data Radiology Impressions Foot X-Ray 08/29/22 16:48 IMPRESSION: No acute skeletal finding. Imaging Data Other Xray: My impression: NEG Radiologist's impression: XR neg for bony abnormality Discharge Plan Discharge Patient Disposition: Home Clinical Impression: Contusion of foot, right, Hematoma of right foot Condition: Stable Prescriptions: New Voltaren Arthritis Pain 1 % gel 4 g topical QID Qty: 100 0RF Rx Instructions: apply to single knee, ankle, foot; for foot includes sole/toes/top of foot naproxen 500 mg tablet 500 mg PO BID PRN (Reason: pain) Qty: 20 0RF No Action trazodone 50 mg tablet 50 mg PO .HS Qty: 30 2RF fluoxetine [Prozac] 40 mg capsule 40 mg PO DAILY Qty: 30 1RF amlodipine 2.5 mg tablet 2.5 mg PO DAILY Qty: 30 0RF albuterol sulfate 90 mcg/actuation HFA aerosol inhaler 2 inh INHALATION Q6H PRN (Reason: shortness of breath or wheezing) Qty: 8 0RF Discharge Orders: Discharge ED (Routine); Ordered 08/29/22 Ordered By: Lani Walter Referrals: Washington Bernard DO [Primary Care Provider] - Discharge Activity: Limit activity as instructed Patient Instructions: Contusion, Hematoma (ED), Bone Bruise (ED) Activity Restrictions/Additional Instructions: X-rays today are negative for any signs of acute fracture however, you have a significant amount of swelling indicative of a contusion and hematoma. There is soft tissue swelling visible on your x-ray which does correlate with this finding. It is possible that you can also have bruising of your bones which is very tender and sore for a couple of weeks. We recommend keeping your foot up and elevated, applying ice for 15 to 20 minutes, multiple times throughout the day and, we have given you a protective postop shoe to wear for the next several days to help protect your foot and of also provided use medication to help with pain. We recommend a follow-up with your primary care doctor next week for recheck if needed. Sign Out Sign Out Data: Patient Sign Out occurred on 08/29/22 at 17:11. Patient's care was discussed, and care was transferred from to ALEXANDRIA Musa. Post-Handoff Eval: Patient is in no distress with an icepack on her foot and foot elevated. Large amount of swelling and hematoma present on initial bedside evaluation. Coding Level of Care Code ED Buildings And Grounds Coordinator for Chg Fwd Exam Comprehensive
--- NOTE | 2022-08-29 16:48 | XRR_ITS ---
PROCEDURE INFORMATION: Exam: XR Right Foot Exam date and time: 08/29/2022 5:05 PM Age: 52 years old Clinical indication: Pain; Foot; Right; Additional info: Dropped a piece of wood on her right foot TECHNIQUE: Imaging protocol: Radiologic exam of the Right foot. Views: 3 or more views. COMPARISON: No relevant prior studies available. FINDINGS: Bones/joints: The bones are intact and in normal alignment. No fracture. Secondary ossification adjacent to the lateral cuboid. Calcaneus spurs. Soft tissues: Soft tissue swelling of the dorsal foot. XR/XR foot RT min 3V* [id number] IMPRESSION: No acute skeletal finding.
[2022-08-29] MEDS: ketorolac 60 mg/2 mL INJ IM (16:56)
== END 2022-08-29 18:10 | disposition home or self-care (01) ==
PROVIDERS: Emergency Provider Physician Assistant; PCP Family Medicine
DX: S99.921A Unspecified injury of right foot, initial encounter (principal); S90.31XA Contusion of right foot, initial encounter; W20.8XXA Other cause of strike by thrown, projected or falling object, initial encounter
CPT/HCPCS: 73630; 96372; 99284; J1885

== ENCOUNTER 2022-10-07 18:54 | Emergency (ER) | payer MEDICAID, SELFPAY ==
[2021-12-27 13:50] VITALS: BP 166/97; BMI 35.0
[2022-10-07] VITALS (9 sets, daily range): BP systolic 164–204; BP diastolic 97–121; PULSE 74–85; RESP 16–17; TEMP 36.8; O2SAT 92–97; BMI 21.0
--- NOTE | 2022-10-07 19:21 | W.ED.FALL ---
HPI - Fall General: Chief Complaint: Fall Stated Complaint: FALL Time Seen by Provider: 10/07/22 19:01 Source: patient Mode of arrival: EMS Limitations: no limitations History of Present Illness: Patient presents to the emergency department today brought by EMS for evaluation treatment of injury sustained after falling at [facility] prior to arrival. Patient states she went to use the restroom and noted that there was a toy dump truck in the floor of the bathroom. Patient states that once inside the restroom, she accidentally stepped backwards and stepped on the toy causing her to fall. Patient reports falling onto the tile floor and reports she impacted her right hand on the door, believes she impacted her right elbow and shoulder and right hip. Patient also states she hit the back of her head on the floor and is experiencing head and neck pain. She states she saw stars when she hit her head and soon after developed some nausea and sensation of presyncope. Patient did not vomit and has not had any episodes of passing out. She received antinausea medication from EMS and reports resolution of her nausea. Patient's chart review shows she has chronic issues with her neck. She is not complaining of upper extremity numbness or weakness. Patient primarily complains of right lateral hip pain, right shoulder pain, right hand pain, back of head pain and neck pain. Associated symptoms-after fall: Reports headache(s) and neck pain Review of Systems General: Reports: 10 or more systems reviewed and unremarkable except in HPI and below GI: Reports: nausea Musc: Reports: neck pain, back pain, extremity pain, joint pain, joint stiffness and limited range of motion Neuro: Reports: headache(s) and dizziness [facility] ED PFSH: Medical History Borderline intellectual functioning Left ureteral calculus Major depressive disorder, recurrent, mild Other obsessive-compulsive disorder Psychiatric care Recurrent major depressive disorder, in partial remission Urolithiasis Family History Father Hypertension CAD (coronary artery disease) Hyperlipidemia Cancer Brother Hypertension CAD (coronary artery disease) Hyperlipidemia Grandfather CAD (coronary artery disease) Hypertension Mother Hyperlipidemia Social History Smoking and tobacco status: never smoked Alcohol intake: never History of recent travel: No Current gender identity: Female Female Reproductive History: Date of last menstrual period: 02/27/22 Physical Exam Const: COMMON NORMALS: no acute distress, patient oriented x3 and alert HENMT: COMMON NORMALS: normocephalic, atraumatic and hearing grossly normal bilaterally HEAD & SCALP: normocephalic and atraumatic Eye: COMMON NORMALS: Equal, round and reactive pupils present, EOMs intact bilaterally and conjunctivae normal CONJUNCTIVA: Yes conjunctivae normal PUPIL: Yes Equal, round and reactive pupils present Neck/C-Spine: OTHER: Patient does demonstrate range of motion of the neck independently but indicates discomfort with turning her head Lymph: LYMPHATIC: no lymphadenopathy noted Resp: COMMON NORMALS: normal respiratory effort, No retractions and No use of accessory muscles Cardio: COMMON NORMALS: regular rate RATE: regular rate Extremity: NARRATIVE EXTREMITY EXAM: Patient is independently ambulatory and weightbearing with a slightly slowed gait here in the ER. Patient demonstrates full flexion extension capabilities of her hips and knees bilaterally with ability to stand and sit independently. 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 Patient has generalized tenderness on palpation to the right shoulder without specific AC joint tenderness, anterior right shoulder tenderness or scapular tenderness. Patient with tenderness to the right hip on the lateral portion by the greater trochanter. Neuro: COMMON NORMALS: patient oriented x3 SENSORIUM/ORIENTATION: Yes alert Psych: COMMON NORMALS: mental status grossly normal, Normal thought process present, cooperative and normal affect THOUGHT PROCESS: Normal thought process present Skin: COMMON NORMALS: no rashes or lesions noted and turgor normal NARRATIVE SKIN EXAM: Patient has some light bruising noted to the dorsum of her right hand-especially on the lateral side. Patient has some superficial abrasions noted to the dorsum of the right MCPs and IP joints of the second and third fingers. No signs of active bleeding. GENERAL SKIN EXAM: no rashes or lesions noted and turgor normal Course Vital Signs: Vital signs: Vital Signs Temperature 98.2 F 10/07/22 18:59 Pulse Rate 74 10/07/22 22:44 Respiratory Rate 17 10/07/22 22:44 Blood Pressure 164/97 10/07/22 22:44 Pulse Oximetry 97 10/07/22 22:44 Oxygen Delivery Me thod 10/07/22 18:59 MDM - Fall Medical Decision Making Patient presents today with several different issues including musculoskeletal injury and concerns for head injury. Given that the patient states she hit the back of her head on the tile floor and had a brief moment of seeing spots followed by nausea and feeling like she was going to pass out, we did go ahead and scan her head. Patient has a chronic history of neck issues and was reporting acute worsening of her neck pain so, EMS had patient in a c-collar and she was also scanned for any acute changes. Both head and neck CTs were negative. X-ray of the patient's hand, shoulder, and hips revealed no signs of any acute concerns. Patient's physical examination is otherwise unremarkable though she does indicate generalized aches and pains. Did warn her that she will most likely be more tender and sore over the next couple of days. Went over signs and symptoms common with mild concussion however, strict return precautions for any change or worsening in neurological function or condition was discussed. Patient was treated with medication to help with musculoskeletal pain and inflammation with recommendations for at home therapies as well provided. Patient to follow-up with her primary care doctor in the next couple of days for recheck of all of her injuries. Differential Diagnosis Likely concussion without loss of consciousness; Unlikely dislocation of shoulder region, fracture of wrist or compression fracture Lab Data Radiology Impressions Cervical Spine CT 10/07/22 20:43 IMPRESSION: No acute findings. Hand X-Ray 10/07/22 20:43 IMPRESSION: No visible acute fracture is identified in the right hand. Head CT 10/07/22 20:43 IMPRESSION: No acute intracranial abnormality. Hip/Pelvis X-Ray 10/07/22 20:43 IMPRESSION: Deformity of the right femoral head concerning for age-indeterminate fracture or the sequela of degenerative change. Shoulder X-Ray 10/07/22 20:43 IMPRESSION: No acute fracture or dislocation identified. Laboratory Results Urine HCG, Qual Negative (Negative) 10/07/22 20:05 Discharge Plan Discharge Patient Disposition: Home Clinical Impression: Concussion without loss of consciousness, Contusion of right shoulder, Contusion of hand, right, Abrasion of hand, right, Neck pain, musculoskeletal, Contusion of hip, right, Fall against object Condition: Stable Prescriptions: New tizanidine 4 mg tablet 4 mg PO Q12H PRN (Reason: muscle spasticity) Qty: 20 0RF naproxen 500 mg tablet 500 mg PO BID PRN (Reason: pain) Qty: 20 0RF No Action trazodone 50 mg tablet 50 mg PO .HS Qty: 30 2RF fluoxetine [Prozac] 40 mg capsule 40 mg PO DAILY Qty: 30 1RF amlodipine 2.5 mg tablet 2.5 mg PO DAILY Qty: 30 0RF albuterol sulfate 90 mcg/actuation HFA aerosol inhaler 2 inh INHALATION Q6H PRN (Reason: shortness of breath or wheezing) Qty: 8 0RF Voltaren Arthritis Pain 1 % gel 4 g topical QID Qty: 100 0RF Rx Instructions: apply to single knee, ankle, foot; for foot includes sole/toes/top of foot naproxen 500 mg tablet 500 mg PO BID PRN (Reason: pain) Qty: 20 0RF Discharge Orders: Discharge ED (Routine); Ordered 10/07/22 Ordered By: Lani Walter Referrals: Washington Bernard DO [Primary Care Provider] - Discharge Diet: Usual diet Discharge Activity: Increase activity as tolerated Patient Instructions: Contusion, Concussion (ED) Activity Restrictions/Additional Instructions: X-rays today showed no signs of any acute bony fractures of the hand, shoulder, or your hip. CT examination found no signs of any intracranial injury or acute injury of your neck. You most likely feel more sore tomorrow as it typically takes 24 hours for full pain after an injury to develop. We will treat with muscle relaxers and anti-inflammatory medications to help keep you comfortable. I do recommend taking it easy the next couple of days. You can use ice or heat to various areas of discomfort to help with pain as well. Since you hit your head and did feel nauseated and felt like you are going to pass out it is possible that you have a mild concussion. You may continue to have symptoms of headache, nausea, dizziness, etc. for couple of days. However, if you do have any episodes of passing out, develop the worst headache of your life, develop any blurry or change in your vision or, dizziness without ability to stand or walk you need to be back here in the emergency department for a reevaluation. Follow-up with your primary care doctor at the end of the week for recheck of all symptoms and injuries. 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
--- NOTE | 2022-10-07 20:43 | XRR_ITS ---
PROCEDURE INFORMATION: Exam: XR Right Shoulder Exam date and time: 10/07/2022 8:49 PM Age: 52 years old Clinical indication: Injury or trauma; Fall; Blunt trauma (contusions or hematomas); Shoulder and hand; Right; Additional info: Fall, pain TECHNIQUE: Imaging protocol: Radiologic exam of the Right shoulder. Views: 2 or more views. COMPARISON: CR XR chest 1V portable [id number] 11/03/2021 12:01 AM FINDINGS: Bones/joints: The osseous structures are intact. No evidence of acute fracture. Soft tissues: Soft tissue swelling is present. XR/XR shoulder RT min 2V* [id number] IMPRESSION: No acute fracture or dislocation identified.
--- NOTE | 2022-10-07 20:43 | XRR_ITS ---
PROCEDURE INFORMATION: Exam: XR Right Hand Exam date and time: 10/07/2022 8:49 PM Age: 52 years old Clinical indication: Injury or trauma; Fall; Blunt trauma (contusions or hematomas); Shoulder and hand; Right; Additional info: Fall, pain TECHNIQUE: Imaging protocol: Radiologic exam of the Right hand. Views: 3 or more views. COMPARISON: No relevant prior studies available. FINDINGS: Bones/joints: Grossly unremarkable. No evidence of acute fractures are identified. Soft tissues: Suspected mild soft tissue swelling. XR/XR hand RT min 3V* [id number] IMPRESSION: No visible acute fracture is identified in the right hand.
--- NOTE | 2022-10-07 20:43 | CTR_ITS ---
PROCEDURE INFORMATION: Exam: CT Cervical Spine Without Contrast Exam date and time: 10/07/2022 9:22 PM Age: 52 years old Clinical indication: Injury or trauma; Fall; Blunt trauma; Patient HX: Patient tripped and fell in public restroom. C/O head and neck pain with dizziness. C collar in place. ; Additional info: Fall, pain, previous HX of cervical issues TECHNIQUE: Imaging protocol: Computed tomography of the cervical spine without contrast. Radiation optimization: All CT scans at this facility use at least one of these dose optimization techniques: automated exposure control; mA and/or kV adjustment per patient size (includes targeted exams where dose is matched to clinical indication); or iterative reconstruction. COMPARISON: MR cervical spin wo con* [id number] 09/28/2020 9:14 AM RADIATION DOSE METRICS: Total DLP (mGy-cm): 213.47 FINDINGS: Bones/joints: Mild scoliosis. No fracture or subluxation. No jumped, locked or perched facets. Paranasal sinuses: Minimal left sphenoid sinus mucosal thickening. Pharynx: Left tonsillar calcification. Lungs: Lung apices are normal. Soft tissues: Unremarkable. CT/CT cervical spin wo con* [id number] IMPRESSION: No acute findings.
--- NOTE | 2022-10-07 20:43 | XRR_ITS ---
PROCEDURE INFORMATION: Exam: XR Right Hip Exam date and time: 10/07/2022 8:49 PM Age: 52 years old Clinical indication: Injury or trauma; Fall; Blunt trauma (contusions or hematomas); Right; Hip; Additional info: Fall, pain TECHNIQUE: Imaging protocol: Radiologic exam of the Right hip. Views: 1 view hip with pelvis when performed. COMPARISON: CT abdomen pelvis w con* [id number] 08/09/2021 10:31 PM FINDINGS: Bones/joints: Deformity of the right femoral head concerning for age-indeterminate fracture or the sequela of degenerative change. The right femoral head remains contained within the right acetabulum. Mild degenerative changes of the SI joints. Mild degenerative changes of the lumbosacral spine. Mild degenerative changes of the right hip joint. Soft tissues: Suspected soft tissue swelling is present.. XR/XR hip RT 2-3V wo/w pel* [id number] IMPRESSION: Deformity of the right femoral head concerning for age-indeterminate fracture or the sequela of degenerative change.
--- NOTE | 2022-10-07 20:43 | CTR_ITS ---
PROCEDURE INFORMATION: Exam: CT Head Without Contrast Exam date and time: 10/07/2022 9:19 PM Age: 52 years old Clinical indication: Injury or trauma; Fall; Blunt trauma (contusions or hematomas); Patient HX: Patient tripped and fell in public restroom. C/O head and neck pain with dizziness. C collar in place. ; Additional info: Fall, nausea, dizziness TECHNIQUE: Imaging protocol: Computed tomography of the head without contrast. Radiation optimization: All CT scans at this facility use at least one of these dose optimization techniques: automated exposure control; mA and/or kV adjustment per patient size (includes targeted exams where dose is matched to clinical indication); or iterative reconstruction. COMPARISON: CT head wo con* [id number] 07/20/2018 6:52 PM RADIATION DOSE METRICS: Total DLP (mGy-cm): 1030.88 FINDINGS: Brain: No focal hemorrhage or midline shift is identified. Mild atrophy. Cerebral ventricles: No ventriculomegaly or evidence of acute hydrocephalus. Paranasal sinuses: The partially assessed sinuses are grossly clear. Only minimal left sphenoid sinus mucosal thickening. Mastoid air cells: Visualized mastoid air cells are well aerated. Bones/joints: No displaced skull fracture is noted. Soft tissues: Unremarkable. CT/CT head wo con* [id number] IMPRESSION: No acute intracranial abnormality.
[2022-10-07] MEDS: ketorolac 60 mg/2 mL INJ IM (21:33)
[2022-10-07] MEDS: tizanidine 4 mg Tablet PO (21:33)
== END 2022-10-07 22:56 | disposition home or self-care (01) ==
PROVIDERS: Emergency Provider Physician Assistant; PCP Family Medicine
DX: S60.221A Contusion of right hand, initial encounter (principal); S70.01XA Contusion of right hip, initial encounter; S60.511A Abrasion of right hand, initial encounter; M54.2 Cervicalgia; S06.0X0A Concussion without loss of consciousness, initial encounter; S40.011A Contusion of right shoulder, initial encounter; W18.09XA Striking against other object with subsequent fall, initial encounter
CPT/HCPCS: 70450; 72125; 73030; 73130; 73502; 81025; 96372; 99284; J1885

== ENCOUNTER 2023-03-09 21:30 | Emergency (ER) | payer MEDICAID, SELFPAY ==
[2021-12-27 13:50] VITALS: BP 166/97; BMI 35.0
[2023-03-09 21:40] VITALS: BP 197/93; PULSE 65; RESP 14; TEMP 36.5; O2SAT 95; BMI 38.7
--- NOTE | 2023-03-09 21:56 | ED_ITS ---
HPI - Abdominal Pain General: Chief Complaint: Abdominal Pain Stated Complaint: right side pain Time Seen by Provider: 03/09/23 21:56 History of Present Illness: Ms. Farmer is a 52-year-old lady with history of obesity and multiple abdominal surgeries in the past presenting to the emergency department for 2 separate abdominal concerns. She reports some right-sided abdominal discomfort and a bulging sensation which has been ongoing however is become more frequent and concerns for hernia. Additionally she notes approximately 4 weeks of intermittent watery and loose stool. Denies fevers, no nausea or vomiting, no blood in stool. Moderate intensity at worst. Denies preceding known specific provoking event. No other specific changes in health, exacerbating, or alleviating factors identified. Onset (ago): week(s) Severity: moderate Exacerbating factors: nothing Relieving factors: nothing Review of Systems General: Reports: 10 or more systems reviewed and unremarkable except in HPI and below PFSH ED PFSH: Medical History Borderline intellectual functioning Diarrhea Left ureteral calculus Major depressive disorder, recurrent, mild Other obsessive-compulsive disorder Psychiatric care Recurrent major depressive disorder, in partial remission Urolithiasis Family History Father Hypertension CAD (coronary artery disease) Hyperlipidemia Cancer Brother Hypertension CAD (coronary artery disease) Hyperlipidemia Grandfather CAD (coronary artery disease) Hypertension Mother Hyperlipidemia Social History Smoking and tobacco status: never smoked Alcohol intake: never Substance/Drug Use: never Current gender identity: Female Physical Exam Const: COMMON NORMALS: alert GENERAL APPEARANCE: cooperative and well developed HENMT: COMMON NORMALS: normocephalic and atraumatic HEAD & SCALP: normocephalic and atraumatic THROAT: posterior oropharynx normal Eye: COMMON NORMALS: conjunctivae normal CONJUNCTIVA: Yes conjunctivae normal SCLERA: sclerae normal Neck/C-Spine: COMMON NORMALS: supple GENERAL: Yes trachea midline Resp: COMMON NORMALS: clear to auscultation bilaterally EFFORT & INSPECTION: Yes able to speak in complete sentences AUSCULTATION: clear to auscultation bilaterally Cardio: COMMON NORMALS: regular rate and regular rhythm RATE: regular rate RHYTHM: regular rhythm GI: COMMON NORMALS: Soft to palpation PALPATION: Yes Soft to palpation, Yes Tenderness to palpation present (GI), No Guarding due to palpation present (GI), No Rigid due to palpation and No Hernia present : EXTERNAL FEMALE EXAM: No Hernia present Extremity: GENERAL: Yes normal exam except as noted and No edema Neuro: COMMON NORMALS: moves all extremities SENSORIUM/ORIENTATION: Yes alert and No Orientation impaired Psych: COMMON NORMALS: mental status grossly normal and Normal thought process present THOUGHT PROCESS: Normal thought process present Course Vital Signs: Vital signs: Vital Signs Temperature 97.7 F 03/09/23 21:40 Pulse Rate 61 03/09/23 22:15 Respiratory Rate 15 03/09/23 22:15 Blood Pressure 197/93 03/09/23 21:40 Pulse Oximetry 96 03/09/23 22:15 Oxygen Delivery Me thod Room Air 03/09/23 22:15 MDM - Abdominal Pain Medical Decision Making 52-year-old lady presenting with GI concerns. Exam as above. Patient is nontoxic. Abdominal tenderness without evidence of acute surgical abdomen. Labs notable for essentially unremarkable hematologic and metabolic panel. No convincing UTI given squamous epithelial contamination.\ CT with no acute finding to explain patient's symptoms. Incidental findings discussed. Patient is able to tolerate p.o. intake. Satisfactory for outpatient management. The results of ED evaluation were discussed with the patient including prescriptions and/or symptomatic cares (if applicable) including appropriate and responsible use, followup plan, and return precautions. The patient verbalized understanding and felt safe for discharge. Medical Records I reviewed the patient's medical records. Lab Data I reviewed the patient's lab results. 03/09/23 22:03 03/09/23 22:03 Labs/Radiology: Radiology Impressions Abdomen/Pelvis CT 03/09/23 22:01 IMPRESSION: 1. No acute abnormality in the abdomen or pelvis. 2. Stable mild fatty infiltration of the liver. 3. Scattered diverticula in the colon. No evidence for diverticulitis. 4. Incidental/nonacute findings are listed in the report. Laboratory Results WBC 6.8 10^3/uL (4.0-10.0) 03/09/23 22:03 RBC 5.31 10^6/uL (4.1-5.3) H 03/09/23 22:03 Hgb 15.0 g/dL (11.5-15.3) 03/09/23 22:03 Hct 45.6 % (37.0-47.0) 03/09/23 22:03 MCV 85.9 fl (81-99) 03/09/23 22:03 MCH 28.2 pg (28.0-34.0) 03/09/23 22:03 MCHC 32.9 g/dL (30.0-36.0) 03/09/23 22:03 RDW 12.9 % (12.1-15.1) 03/09/23 22:03 Plt Count 333 10^3/cmm (130-400) 03/09/23 22:03 MPV 9.2 fL (7.4-10.4) 03/09/23 22:03 Neut % (Auto) 53.9 % 03/09/23 22:03 Lymph % (Auto) 34.8 % 03/09/23 22:03 [place] % (Auto) 8.2 % 03/09/23 22:03 Eos % (Auto) 2.0 % 03/09/23 22:03 Baso % (Auto) 1.0 % 03/09/23 22:03 Neut # (Auto) 3.68 10^3/uL (1.8-7.7) 03/09/23 22:03 Lymph # (Auto) 2.4 10^3/uL (0.8-4.8) 03/09/23 22:03 [place] # (Auto) 0.6 10^3/uL (0.2-0.9) 03/09/23 22:03 Eos # (Auto) 0.1 10^3/uL (0.0-0.8) 03/09/23 22:03 Baso # (Auto) 0.1 10^3/uL (0.0-0.1) 03/09/23 22:03 Nucleated RBC % (auto) 0 % 03/09/23 22:03 Nucleated RBCs # 0.0 /100WBC 03/09/23 22:03 Sodium 140 mmol/L (136-145) 03/09/23 22:03 Potassium 3.7 mmol/L (3.5-5.1) 03/09/23 22:03 Chloride 103 mmol/L (98-107) 03/09/23 22:03 Carbon Dioxide 27 mmol/L (22-29) 03/09/23 22:03 Anion Gap 13.7 (5-19) 03/09/23 22:03 BUN 12 mg/dL (6-20) 03/09/23 22:03 Creatinine 0.7 mg/dL (0.5-0.9) 03/09/23 22:03 GFR Calculation 87.9 mL/min (90-130) L 03/09/23 22:03 Glucose 82 mg/dL (65-115) 03/09/23 22:03 Calculated Osmolality 289 mOsm/kg (285-295) 03/09/23 22:03 Calcium 9.3 mg/dL (8.5-10.5) 03/09/23 22:03 Total Bilirubin 0.5 mg/dL (0.15-1.2) 03/09/23 22:03 AST 26 U/L (0-32) 03/09/23 22:03 ALT 28 U/L (0-33) 03/09/23 22:03 Alkaline Phosphatase 112 U/L (35-105) H 03/09/23 22:03 Total Protein 7.6 g/dL (6.6-8.7) 03/09/23 22:03 Albumin 4.3 g/dL (3.5-5.2) 03/09/23 22:03 Globulin 3.3 g/dL (1.3-4.6) 03/09/23 22:03 Lipase 14 U/L (13-60) 03/09/23 22:03 Urine Color Yellow (Yellow) 03/09/23 22:42 Urine Appearance Hazy (CLEAR) A 03/09/23 22:42 Urine pH 5 (5-7) 03/09/23 22:42 Ur Specific [place] 1.030 (1.005-1.030) 03/09/23 22:42 Urine Protein Neg (Negative) 03/09/23 22:42 Urine Glucose (UA) Norm (Normal) 03/09/23 22:42 Urine Ketones Negative (Negative) 03/09/23 22:42 Urine Blood Neg (Negative) 03/09/23 22:42 Urine Nitrate Negative (Negative) 03/09/23 22:42 Urine Bilirubin Neg (Negative) 03/09/23 22:42 Urine Urobilinogen Norm mg/dL (Negative) 06/25/23 22:42 Ur Leukocyte Esterase 1+ (Negative) H 03/09/23 22:42 Urine RBC 0-4 /hpf (0-2) H 03/09/23 22:42 Urine WBC 15-25 /hpf (0-5) H 03/09/23 22:42 Ur Squamous Epith Cells 25-40 /hpf (0-5) H 03/09/23 22:42 Amorphous Sediment Not Reportable 03/09/23 22:42 Urine Bacteria 2+ /hpf (NONE) H 03/09/23 22:42 Urine Mucus 1+ /hpf 03/09/23 22:42 Discharge Plan Discharge Patient Disposition: Home Clinical Impression: Chronic abdominal pain, Diarrhea Condition: Stable Prescriptions: No Action fluoxetine [Prozac] 40 mg capsule 40 mg PO DAILY Qty: 30 1RF trazodone 50 mg tablet 50 mg PO .HS Qty: 30 2RF amlodipine 2.5 mg tablet 2.5 mg PO DAILY Qty: 90 3RF albuterol sulfate 90 mcg/actuation HFA aerosol inhaler 2 inh INHALATION Q6H PRN (Reason: shortness of breath or wheezing) Qty: 8 0RF Voltaren Arthritis Pain 1 % gel 4 g topical QID Qty: 100 0RF Rx Instructions: apply to single knee, ankle, foot; for foot includes sole/toes/top of foot Discharge Orders: Discharge ED (Routine); Ordered 03/09/23 Ordered By: Jake Aparicio Referrals: Washington Bernard, DO [Primary Care Provider] - Discharge Diet: Advance as tolerated and Clear Liquid Discharge Activity: Increase activity as tolerated Patient Instructions: Chronic Diarrhea (ED), Abdominal Pain (ED) Activity Restrictions/Additional Instructions: Thank you for visiting the emergency department. You were seen and evaluated for diarrhea and abdominal pain. The exact cause of your symptoms is unclear. I will place an order for outpatient stool sample to be brought to lab for evaluation of bacterial infection. Please follow-up with your primary care provider. Return for anything that you are concerned about and feel needs emergency department evaluation. 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
--- NOTE | 2023-03-09 22:01 | CTR_ITS ---
PROCEDURE INFORMATION: Exam: CT Abdomen And Pelvis With Contrast Exam date and time: 03/09/2023 10:52 PM Age: 52 years old Clinical indication: Abdominal pain; Localized; Right lower quadrant (rlq); Prior surgery; Surgery date: 6+ months; Surgery type: Multiple csections; Patient HX: Rlq pain with diarrhea. ; Additional info: Right-sided abdominal pain, diarrhea for 4 weeks TECHNIQUE: Imaging protocol: Computed tomography of the abdomen and pelvis with contrast. Sagittal and coronal reformatted images were created and reviewed. Radiation optimization: All CT scans at this facility use at least one of these dose optimization techniques: automated exposure control; mA and/or kV adjustment per patient size (includes targeted exams where dose is matched to clinical indication); or iterative reconstruction. Contrast material: OMNI 350; Contrast volume: 100 ml; Contrast route: INTRAVENOUS (IV); REPORTING DATA: Count of CT and Cardiac NM exams in prior 12 months: This patient has received 2 known CTs and 0 known cardiac nuclear medicine studies in the 12 months prior to the current study. COMPARISON: CT abdomen pelvis w con* [id number] 08/09/2021 10:31 PM RADIATION DOSE METRICS: Total DLP (mGy-cm): 955.86 FINDINGS: Lungs: Visualized lungs are clear. Pleural spaces: No pleural effusion. Heart: Visualized portions of the heart are unremarkable. Liver: Diffuse, mildly decreased attenuation in the liver. Findings are stable and consistent with mild fatty infiltration. Gallbladder and bile ducts: The gallbladder is unremarkable. No biliary ductal dilatation. Pancreas: The pancreas is unremarkable. No pancreatic ductal dilatation. Spleen: The spleen is unremarkable. Adrenal glands: The right and left adrenal glands are unremarkable. Kidneys and ureters: The right and left kidneys are unremarkable. The right and left ureters are unremarkable. Stomach and bowel: Increased fecal content in the colon. Scattered diverticula in the colon. No evidence for diverticulitis. No acute abnormality in the small bowel. .No acute abnormality in the stomach. Appendix: The appendix is visualized and is unremarkable. No findings to suggest acute appendicitis. Intraperitoneal space: No free intraperitoneal air. No ascites. No loculated fluid collections to suggest an abscess. Vasculature: No evidence for aortic aneurysm or aortic dissection. Hepatic veins, portal veins, splenic vein, and SMV are patent. Lymph nodes: No lymphadenopathy. Urinary bladder: The bladder is incompletely filled, which can limit evaluation. No focal abnormality in the bladder however. Reproductive: The uterus, right ovary, and left ovary are unremarkable. Bones/joints: Degenerative changes in the spine, sacroiliac joints, and hips. Multilevel foraminal stenosis of varying severity in the lumbar spine. Soft tissues: No acute abnormality in the extra-abdominal soft tissues. CT/CT abdomen pelvis w con* [id number] IMPRESSION: 1. No acute abnormality in the abdomen or pelvis. 2. Stable mild fatty infiltration of the liver. 3. Scattered diverticula in the colon. No evidence for diverticulitis. 4. Incidental/nonacute findings are listed in the report.
[2023-03-09 22:15] VITALS: PULSE 61; RESP 15; O2SAT 96
[2023-03-09 22:32] LABS: Basophils # 0.1 10^3/uL (0.0-0.1); Eosinophils # 0.1 10^3/uL (0.0-0.8); Hematocrit 45.6 % (37.0-47.0); Lymphocytes # 2.4 10^3/uL (0.8-4.8); Lymphocytes % 34.8 %; Mean Corpuscular HGB Conc 32.9 g/dL (30.0-36.0); Mean Corpuscular Hemoglobin 28.2 pg (28.0-34.0); Mean Corpuscular Volume 85.9 fl (81-99); Mean Platelet Volume 9.2 fL (7.4-10.4); Monocytes # 0.6 10^3/uL (0.2-0.9); Monocytes % 8.2 %; Neutrophils # 3.68 10^3/uL (1.8-7.7); Neutrophils % 53.9 %; Nucleated Red Blood Cells % 0 %; Platelet Count 333 10^3/cmm (130-400); Red Blood Count 5.31 10^6/uL (4.1-5.3); Red Cell Distribution Width 12.9 % (12.1-15.1); White Blood Count 6.8 10^3/uL (4.0-10.0)
[2023-03-09 22:45] LABS: Alanine Aminotransferase 28 U/L (0-33); Albumin Level 4.3 g/dL (3.5-5.2); Alkaline Phosphatase 112 U/L (35-105); Anion Gap 13.7 (5-19); Aspartate Amino Transferase 26 U/L (0-32); Blood Urea Nitrogen 12 mg/dL (6-20); Calcium 9.3 mg/dL (8.5-10.5); Carbon Dioxide 27 mmol/L (22-29); Chloride 103 mmol/L (98-107); Globulin 3.3 g/dL (1.3-4.6); Glomerular Filtration Rate 87.9 mL/min (90-130); Glucose 82 mg/dL (65-115); Lipase 14 U/L (13-60); Osmolality Calculated 289 mOsm/kg (285-295); Potassium 3.7 mmol/L (3.5-5.1); Sodium 140 mmol/L (136-145); Total Bilirubin 0.5 mg/dL (0.15-1.2); Total Protein 7.6 g/dL (6.6-8.7)
[2023-03-09] MEDS: iohexol 350 mg/mL 500 mL Btl (per mL) IV (22:55)
[2023-03-09 22:57] LABS: Bilirubin Urine Neg (Negative); Blood Urine Neg (Negative); Glucose Urine UA Norm (Normal); Ketones Urine Negative (Negative); Nitrate Urine Negative (Negative); Protein Urine Neg (Negative); Urine Appearance Hazy (CLEAR); Urine Color Yellow (Yellow); pH Urine 5 (5-7)
[2023-03-09 22:58] LABS: Add Urine Microscopic? YES; Leukocyte Esterase Urine 1+ (Negative); Squamous Epithelial Cell Urine 25-40 /hpf (0-5); Urobilinogen Urine Norm (Negative)
[2023-03-09 22:59] LABS: Bacteria Urine 2+ /hpf; Mucus Urine 1+ /hpf; RBC Urine 0-4 /hpf (0-2); WBC Urine 15-25 /hpf (0-5)
== END 2023-03-10 00:18 | disposition home or self-care (01) ==
PROVIDERS: Emergency Provider Emergency Medicine; PCP Family Medicine
DX: G89.29 Other chronic pain (principal); R10.9 Unspecified abdominal pain; R19.7 Diarrhea, unspecified; Z87.442 Personal history of urinary calculi
CPT/HCPCS: 74177; 80053; 81001; 83690; 85025; 99285; Q9967

== ENCOUNTER 2023-03-11 15:01 | Outpatient (CLI) | payer MEDICAID, SELFPAY ==
[2021-12-27 13:50] VITALS: BP 166/97; BMI 35.0
== END 2023-03-11 15:02 | disposition home or self-care (01) ==
PROVIDERS: PCP Family Medicine; Visit Provider Family Medicine
DX: R19.7 Diarrhea, unspecified (principal)
CPT/HCPCS: 87506

== ENCOUNTER 2023-12-02 12:40 | Emergency (ER) | payer MEDICAID, SELFPAY ==
[2021-12-27 13:50] VITALS: BP 166/97; BMI 35.0
[2023-12-02 12:49] VITALS: BP 189/85; PULSE 64; RESP 18; TEMP 36.5; O2SAT 97; BMI 40.0
--- NOTE | 2023-12-02 12:57 | ED_ITS ---
HPI - Animal Bite General: Chief Complaint: Animal Bite Stated Complaint: puked on by cat with possible rabies, sent by vet Time Seen by Provider: 12/02/23 12:46 Source: patient Mode of arrival: ambulatory Limitations: no limitations History of Present Illness: 53-year-old female states she had a cat today they got ill states that the cat had scratched her and vomited on her then started acting crazy took her to the vet the cat on the way is concerned that it may have had rabies she has not taken it to animal control yet but want to get rabies prophylaxis has no open wounds currently Review of Systems Musc: Denies: extremity pain Skin/Breast: Denies: rash Psych: Denies: depression PFSH ED PFSH: Medical History Diarrhea 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, recurrent, mild Urolithiasis Psychiatric care Left ureteral calculus Other obsessive-compulsive disorder Recurrent major depressive disorder, in partial remission Family History Father Hypertension CAD (coronary artery disease) Hyperlipidemia Cancer Brother Hypertension CAD (coronary artery disease) Hyperlipidemia Grandfather CAD (coronary artery disease) Hypertension Mother Hyperlipidemia Social History Smoking and tobacco/nicotine status: never used tobacco/nicotine Alcohol intake: never Substance/Drug Use: never Current gender identity: Female Physical Exam HENMT: COMMON NORMALS: normocephalic HEAD & SCALP: normocephalic Chest: COMMONS NORMALS: normal inspection of the chest Resp: COMMON NORMALS: normal respiratory effort Extremity: COMMON NORMALS: normal to inspection Course Vital Signs: Vital signs: Vital Signs Temperature 97.7 F 12/02/23 12:49 Pulse Rate 64 12/02/23 12:49 Respiratory Rate 18 12/02/23 12:49 Blood Pressure 189/85 12/02/23 12:49 Pulse Oximetry 97 12/02/23 12:49 MDM - Animal Bite Medical Decision Making Patient presents with a possible rabies exposure we will start her rabies prophylaxis she is to have the cat taken to animal control Medical Records I reviewed the patient's medical records. No radiology studies performed this visit Discharge Plan Discharge Patient Disposition: Home Clinical Impression: Cat bite Condition: Stable Prescriptions: No Action fluoxetine [Prozac] 40 mg capsule 40 mg PO DAILY Qty: 30 1RF trazodone 50 mg tablet 50 mg PO .HS Qty: 30 2RF amlodipine 2.5 mg tablet 2.5 mg PO DAILY Qty: 90 3RF albuterol sulfate 90 mcg/actuation HFA aerosol inhaler 2 inh INHALATION Q6H PRN (Reason: shortness of breath or wheezing) Qty: 8 0RF Voltaren Arthritis Pain 1 % gel 4 g topical QID Qty: 100 0RF Rx Instructions: apply to single knee, ankle, foot; for foot includes sole/toes/top of foot Discharge Orders: Discharge ED (Routine); Ordered 12/02/23 Ordered By: Dannie Kumar Referrals: Washington Bernard, [Primary Care Provider] - Discharge Diet: Advance as tolerated Discharge Activity: Resume usual activity Patient Instructions: Rabies (ED) Coding Level of Care Code ED [employer] 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
[2023-12-02] MEDS: rabies vaccine 2.5 unit SDV IM (13:32)
[2023-12-02] MEDS: rabies IG 300 unit/mL SDV 1 mL 1980 UNIT IM (13:38)
== END 2023-12-02 14:11 | disposition home or self-care (01) ==
PROVIDERS: Emergency Provider Emergency Medicine; PCP Family Medicine
DX: Z20.3 Contact with and (suspected) exposure to rabies (principal); Z29.14 Encounter for prophylactic rabies immune globulin; Z23 Encounter for immunization; W55.03XA Scratched by cat, initial encounter
CPT/HCPCS: 90375; 90471; 90675; 96372; 99283

== ENCOUNTER 2023-12-09 09:45 | Oncology outpatient (recurring) (ONCR) | payer MEDICAID, SELFPAY ==
[2021-12-27 13:50] VITALS: BP 166/97; BMI 35.0
[2023-12-05 09:36] VITALS: BP 156/95; PULSE 78; RESP 17; TEMP 36.3; O2SAT 95
[2023-12-05] MEDS: rabies vaccine 2.5 unit SDV IM (09:54)
[2023-12-09] MEDS: rabies vaccine 2.5 unit SDV IM (10:00)
[2023-12-09 10:02] VITALS: BP 164/88; PULSE 68; TEMP 36.3; O2SAT 98
== END 2023-12-14 23:59 | disposition home or self-care (01) ==
PROVIDERS: PCP Family Medicine; Visit Provider Emergency Medicine
DX: Z20.3 Contact with and (suspected) exposure to rabies (principal); T14.8XXA Other injury of unspecified body region, initial encounter; Z23 Encounter for immunization; W55.01XA Bitten by cat, initial encounter; Z53.9 Procedure and treatment not carried out, unspecified reason
CPT/HCPCS: 90471; 90675

== ENCOUNTER 2024-05-28 15:01 | Emergency (ER) | payer MEDICAID, SELFPAY ==
[2021-12-27 13:50] VITALS: BP 166/97; BMI 35.0
[2024-05-28 15:13] VITALS: BP 188/98; PULSE 78; RESP 16; TEMP 36.8; O2SAT 98
--- NOTE | 2024-05-28 15:59 | W.ED.WOUNDLC ---
HPI - Wound/Laceration General: Chief Complaint: Wound/Laceration Stated Complaint: Splinter stuck into hand Time Seen by Provider: 05/28/24 15:52 Source: patient Mode of arrival: ambulatory Limitations: no limitations History of Present Illness: Patient is a 53-year-old female presents to ED today with a complaint concern of a possible retained splinter to her left hand. Patient states about a week ago she got a small piece of wooden trim stuck in the left hand. She states over the past week she has slowly been picking it out and is picked up several small shards of wood. She feels like there may be something retained. She has not noticed any swelling or redness or drainage. Onset (ago): week(s) (one week ago) Extremity Location: Left: hand Place: home Patient tetanus UTD: Yes Context: accidental Associated symptoms: Reports no associated symptoms Related Data Previous Rx's Medication Instructions Recorded albuterol sulfate 90 mcg/actuation 2 inh inhalation Q6H PRN shortness 11/03/21 aerosol inhaler of breath or wheezing #8 grams diclofenac sodium 1 % topical gel 4 g topical QID #100 grams 08/29/22 (Voltaren Arthritis Pain) amlodipine 2.5 mg tablet 2.5 mg PO DAILY #90 tabs 11/13/22 fluoxetine 40 mg capsule (Prozac) 40 mg PO DAILY #30 caps 01/09/23 trazodone 50 mg tablet 50 mg PO .HS #30 tabs 01/09/23 Allergies Allergy/AdvReac Type Severity Reaction Status Date / Time kiwi Allergy Severe throat Verified 05/28/24 15:19 swelling aspartame Allergy Unknown Verified 05/28/24 15:20 Tetanus Vaccines and Toxoid Allergy Unknown Verified 05/28/24 15:19 Review of Systems Musc: Reports: extremity pain; Denies: extremity swelling Neuro: Denies: numbness in extremities or sensory changes PFSH ED PFSH: Medical History Diarrhea 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, recurrent, mild Urolithiasis Left ureteral calculus Other obsessive-compulsive disorder Recurrent major depressive disorder, in partial remission Family History Father Hypertension CAD (coronary artery disease) Hyperlipidemia Cancer Brother Hypertension CAD (coronary artery disease) Hyperlipidemia Grandfather CAD (coronary artery disease) Hypertension Mother Hyperlipidemia Social History Smoking and tobacco/nicotine status: never used tobacco/nicotine Alcohol intake: never Substance/Drug Use: never Current gender identity: Female Physical Exam Const: COMMON NORMALS: no acute distress, no limitations, alert and well nourished Extremity: COMMON NORMALS: full ROM, capillary refill normal, no joint enlargement and no clubbing, cyanosis or edema GENERAL: Yes normal exam except as noted LEFT UPPER EXTREMITY: Yes hand & digits Hand Left Front: 1. very small puncture site of splinter; no surrounding redness, edema, or purulent drainage; no palpable splinter appreciated Neuro: COMMON NORMALS: moves all extremities, no focal motor deficits and no sensory deficits noted SENSORIUM/ORIENTATION: Yes alert Skin: NARRATIVE SKIN EXAM: see above Course Vital Signs: Vital signs: Vital Signs Temperature 98.3 F 05/28/24 15:13 Pulse Rate 81 05/28/24 16:19 Respiratory Rate 16 05/28/24 16:19 Blood Pressure 184/95 05/28/24 16:19 Pulse Oximetry 97 05/28/24 16:19 Oxygen Delivery Me thod Room Air 05/28/24 15:13 MDM - Wound/Laceration Medical Decision Making Had a lengthy discussion about options. Discussed how splinters will do 1 of 3 things. 1) they will eventually work themselves to the surface and be expelled 2) they will stay put and calcify or 3) they will become infected. Patient's injury was over a week ago and there is no evidence of infection at this time. Suspect if it was going to become infected it would be evident by this point. Splinter does seem to be expelling itself as patient has slowly removed several pieces already. I do not palpate a retained splinter. XR imaging is not going to be beneficial in locating a small wood shard. At this time I do not feel comfortable digging around the lateral aspect of her pointer finger. She understood. Discussed referral to ortho/hand but she states she is comfortable giving it more time to see if the remainder of the blood work itself out. Return to ED precautions given. Tetanus is up-to-date. Medical Records I reviewed the patient's medical records. No radiology studies performed this visit Discharge Plan Discharge Patient Disposition: Home Clinical Impression: Splinter of left hand Condition: Stable Prescriptions: No Action fluoxetine [Prozac] 40 mg capsule 40 mg PO DAILY Qty: 30 1RF trazodone 50 mg tablet 50 mg PO .HS Qty: 30 2RF amlodipine 2.5 mg tablet 2.5 mg PO DAILY Qty: 90 3RF albuterol sulfate 90 mcg/actuation HFA aerosol inhaler 2 inh INHALATION Q6H PRN (Reason: shortness of breath or wheezing) Qty: 8 0RF Voltaren Arthritis Pain 1 % gel 4 g topical QID Qty: 100 0RF Rx Instructions: apply to single knee, ankle, foot; for foot includes sole/toes/top of foot Discharge Orders: Discharge ED (Routine); Ordered 05/28/24 Ordered By: Gabby Nicolas Referrals: Washington Bernard DO [Primary Care Provider] - Activity Restrictions/Additional Instructions: Monitor for infection such as swelling, redness, streaking up hand/arm, purulent drainage, worsening pain, fevers, etc. Please seek medical re-evaluation of these occur. 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
[2024-05-28 16:19] VITALS: BP 184/95; PULSE 81; RESP 16; O2SAT 97
== END 2024-05-28 16:19 | disposition home or self-care (01) ==
PROVIDERS: Emergency Provider Physician Assistant; PCP Family Medicine
DX: S60.552A Superficial foreign body of left hand, initial encounter (principal); W45.8XXA Other foreign body or object entering through skin, initial encounter
CPT/HCPCS: 99281

== ENCOUNTER 2024-05-30 10:25 | Emergency (ER) | payer MEDICAID, SELFPAY ==
[2021-12-27 13:50] VITALS: BP 166/97; BMI 35.0
[2024-05-30 10:42] VITALS: BP 174/92; PULSE 67; RESP 14; TEMP 36.6; O2SAT 98; BMI 38.4
--- NOTE | 2024-05-30 11:19 | XRR_ITS ---
PROCEDURE INFORMATION: Exam: XR Left Hand Exam date and time: 05/30/2024 11:22 AM Age: 53 years old Clinical indication: Pain; Hand; Left; Additional info: Suspected fb TECHNIQUE: Imaging protocol: Radiologic exam of the left hand. Views: 3 or more views. COMPARISON: No relevant prior studies available. FINDINGS: Bones/joints: Normal. Soft tissues: Normal. XR/XR hand LT min 3V* [id number] IMPRESSION: No acute findings.
[2024-05-30 11:41] VITALS: PULSE 61; RESP 16; O2SAT 97
[2024-05-30 12:00] VITALS: BP 194/116; PULSE 63; O2SAT 96
--- NOTE | 2024-05-30 12:01 | ED_ITS ---
HPI - Extremity Problem General: Chief complaint: Extremity Problem,Nontraumatic Stated complaint: Left hand injury Time Seen by Provider: 05/30/24 11:12 History of Present Illness: This patient is a 53 year old with hand and arm pain. She reports that she has had a splinter in her left hand for over a week. She was seen here on Friday and was told that it would cause more problems to try to get the splinter out. She also says that she has been pulling pieces out and this morning she noted that her hand and arm were swollen. No fever. Related Data Previous Rx's Medication Instructions Recorded albuterol sulfate 90 mcg/actuation 2 inh inhalation Q6H PRN shortness 11/03/21 aerosol inhaler of breath or wheezing #8 grams diclofenac sodium 1 % topical gel 4 g topical QID #100 grams 08/29/22 (Voltaren Arthritis Pain) amlodipine 2.5 mg tablet 2.5 mg PO DAILY #90 tabs 11/13/22 fluoxetine 40 mg capsule (Prozac) 40 mg PO DAILY #30 caps 01/09/23 trazodone 50 mg tablet 50 mg PO .HS #30 tabs 01/09/23 clindamycin HCl 300 mg capsule 300 mg PO Q8H 7 days #21 caps 05/30/24 (Cleocin HCl) Allergies Allergy/AdvReac Type Severity Reaction Status Date / Time kiwi Allergy Severe throat Verified 05/28/24 15:19 swelling aspartame Allergy Unknown Verified 05/28/24 15:20 Tetanus Vaccines and Toxoid Allergy Unknown Verified 05/28/24 15:19 PFSH ED PFSH: Medical History Diarrhea 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, recurrent, mild Urolithiasis Left ureteral calculus Other obsessive-compulsive disorder Recurrent major depressive disorder, in partial remission Family History Father Hypertension CAD (coronary artery disease) Hyperlipidemia Cancer Brother Hypertension CAD (coronary artery disease) Hyperlipidemia Grandfather CAD (coronary artery disease) Hypertension Mother Hyperlipidemia Social History Smoking and tobacco/nicotine status: never used tobacco/nicotine Alcohol intake: never Substance/Drug Use: never Current gender identity: Female Physical Exam Const: COMMON NORMALS: no acute distress, patient oriented x3, no limitations and alert GENERAL APPEARANCE: cooperative and comfortable Resp: COMMON NORMALS: normal respiratory effort, No use of accessory muscles and clear to auscultation bilaterally AUSCULTATION: clear to auscultation bilaterally Cardio: COMMON NORMALS: regular rate, regular rhythm and No murmurs present (Cardio) RATE: regular rate RHYTHM: regular rhythm Extremity: COMMON NORMALS: normal to inspection NARRATIVE EXTREMITY EXAM: left hand with a small puncture to the radial aspect of the second MCP joint. Minimal swelling, tenderness. No redness. No drainage. No tenderness along the joint, tendon spaces. Neuro: COMMON NORMALS: patient oriented x3, moves all extremities, no focal motor deficits and no sensory deficits noted SENSORIUM/ORIENTATION: Yes alert Psych: COMMON NORMALS: mental status grossly normal, cooperative and normal affect Skin: COMMON NORMALS: no rashes or lesions noted and turgor normal NARRATIVE SKIN EXAM: see extremity exam GENERAL SKIN EXAM: no rashes or lesions noted and turgor normal Course Vital Signs: Vital signs: Vital Signs Temperature 97.8 F 05/30/24 10:42 Pulse Rate 59 L 05/30/24 12:32 Respiratory Rate 16 05/30/24 11:41 Blood Pressure 185/109 05/30/24 12:32 Pulse Oximetry 96 05/30/24 12:32 Oxygen Delivery Me thod Room Air 05/30/24 11:41 MDM - Extremity (Nontraumatic) Medical Decision Making Patient with concerns for infection. She reports increased pain and swelling - physical exam is not impressive. I will start her on antibiotics and give hand surgery follow up. She is allergic to tetanus vaccine and refused. Lab Data Radiology Impressions Hand X-Ray 05/30/24 11:19 IMPRESSION: No acute findings. All radiology interpretation(s) finalized by discharge Discharge Plan Discharge Patient Disposition: Home Clinical Impression: Splinter of left hand, Infected foreign body in left hand Condition: Stable Prescriptions: New Cleocin HCl 300 mg capsule 300 mg PO Q8H 7 Days Qty: 21 0RF No Action fluoxetine [Prozac] 40 mg capsule 40 mg PO DAILY Qty: 30 1RF trazodone 50 mg tablet 50 mg PO .HS Qty: 30 2RF amlodipine 2.5 mg tablet 2.5 mg PO DAILY Qty: 90 3RF albuterol sulfate 90 mcg/actuation HFA aerosol inhaler 2 inh INHALATION Q6H PRN (Reason: shortness of breath or wheezing) Qty: 8 0RF Voltaren Arthritis Pain 1 % gel 4 g topical QID Qty: 100 0RF Rx Instructions: apply to single knee, ankle, foot; for foot includes sole/toes/top of foot Discharge Orders: Discharge ED (Routine); Ordered 05/30/24 Ordered By: Charisma Fry Referrals: Doyle Valenzuela MD [Referring] - (Hand surgery 1st available appointment ) Washington Bernard DO [Primary Care Provider] - Patient Instructions: Opioid Safety, Pain Management Activity Restrictions/Additional Instructions: Use warm compresses on the area several times daily. Keep arm elevated. Return to the ED if redness, pain worsens. Take the antibiotics as prescribed. Call the hand surgery office or see your primary care provider for follow up if not improving. Coding Level of Care Code ED Application Support Consultant for Pat Soto
[2024-05-30] MEDS: clindamycin 150 mg Capsule 300 MG PO (12:15)
[2024-05-30 12:32] VITALS: BP 185/109; PULSE 59; O2SAT 96
== END 2024-05-30 12:33 | disposition home or self-care (01) ==
PROVIDERS: Emergency Provider Emergency Medicine; PCP Family Medicine
DX: S60.552A Superficial foreign body of left hand, initial encounter (principal); L08.9 Local infection of the skin and subcutaneous tissue, unspecified; W45.8XXA Other foreign body or object entering through skin, initial encounter
CPT/HCPCS: 73130; 99283

== ENCOUNTER → 2024-09-14 11:06 | Outpatient (BNVA) | payer MEDICAID, SELFPAY ==
[2021-12-27 13:50] VITALS: BP 166/97; BMI 35.0
== END ==
PROVIDERS: PCP Family Medicine; Visit Provider Emergency Medicine
DX: M25.561 Pain in right knee (principal); M25.461 Effusion, right knee
CPT/HCPCS: 73562

== ENCOUNTER → 2024-09-17 14:52 | Outpatient (BNVA) | payer MEDICAID, SELFPAY ==
[2021-12-27 13:50] VITALS: BP 166/97; BMI 35.0
== END ==
PROVIDERS: PCP Family Medicine; Visit Provider Family Medicine
DX: I10 Essential (primary) hypertension (principal)
CPT/HCPCS: 80053; 80061; 84439; 84443; 85025

== ENCOUNTER 2024-09-28 00:17 | Emergency (ER) | payer MEDICAID, SELFPAY ==
[2021-12-27 13:50] VITALS: BP 166/97; BMI 35.0
[2024-09-28 00:24] VITALS: BP 151/92; PULSE 98; RESP 16; TEMP 36.4; O2SAT 97; BMI 38.4
[2024-09-28 01:09] LABS: Basophils % 0.3 %; Eosinophils # 0.1 10^3/uL (0.0-0.8); Eosinophils % 0.6 %; Hematocrit 47.4 % (36-47); Lymphocytes # 0.7 10^3/uL (0.8-4.8); Lymphocytes % 5.8 %; Mean Corpuscular HGB Conc 33.5 g/dL (30-55); Mean Corpuscular Hemoglobin 28.2 pg (27-33); Mean Corpuscular Volume 84.2 fl (85-98); Mean Platelet Volume 8.7 fL (7.4-10.4); Monocytes # 0.5 10^3/uL (0.2-0.9); Monocytes % 4.2 %; Neutrophils % 88.9 %; Nucleated Red Blood Cells % 0 %; Platelet Count 309 10^3/cmm (157-399); Red Blood Count 5.63 10^6/uL (3.85-5.65); Red Cell Distribution Width 12.9 % (12.1-15.1); White Blood Count 11.36 10^3/uL (3.29-11.43)
[2024-09-28 01:30] LABS: Alanine Aminotransferase 19 U/L (0-33); Albumin Level 4.2 g/dL (3.5-5.2); Alkaline Phosphatase 132 U/L (35-105); Anion Gap 15.7 (5-19); Aspartate Amino Transferase 20 U/L (0-32); Blood Urea Nitrogen 16 mg/dL (6-20); Calcium 9.4 mg/dL (8.5-10.5); Carbon Dioxide 24 mmol/L (22-29); Chloride 99 mmol/L (98-107); Creatinine Clr Calc Pharmacy 98.8614; Globulin 3.3 g/dL (1.3-4.6); Glomerular Filtration Rate 87.2 mL/min (90-130); Glucose 158 mg/dL (65-115); Lipase 25 U/L (13-60); Osmolality Calculated 284 mOsm/kg (285-295); Potassium 3.7 mmol/L (3.5-5.1); Sodium 135 mmol/L (136-145); Total Bilirubin 0.9 mg/dL (0.15-1.2); Total Protein 7.5 g/dL (6.6-8.7)
[2024-09-28] MEDS: ondansetron 4 MG Tablet 8 MG PO (02:38)
[2024-09-28 02:40] VITALS: BP 127/72; PULSE 95; O2SAT 95
--- NOTE | 2024-09-28 02:46 | ED_ITS ---
HPI - Nausea/Vomiting/Diarrhea 2 General: Chief complaint: Nausea/Vomiting/Diarrhea Stated complaint: Vomiting\Diah Time Seen by Provider: 09/28/24 02:30 History of Present Illness: Patient presents to the ER with complaints of nausea vomiting diarrhea and chills that started earlier today about 3 PM. Patient has been around some sick contacts. Patient also took Pepto-Bismol about an hour prior to arrival. But says she vomited it up. Related Data Previous Rx's Medication Instructions Recorded albuterol sulfate 90 mcg/actuation 2 inh inhalation Q6H PRN shortness 06/25/24 aerosol inhaler of breath or wheezing #8 grams amlodipine 10 mg tablet 10 mg PO DAILY #60 tabs 09/17/24 diclofenac sodium 1 % topical gel 2 g topical QID #100 grams 09/17/24 (Arthritis Pain (diclofenac)) ondansetron HCl 4 mg tablet 4 mg PO Q8H PRN nausea and 09/28/24 vomiting #14 tabs Allergies Allergy/AdvReac Type Severity Reaction Status Date / Time kiwi Allergy Severe throat Verified 09/28/24 00:29 swelling aspartame Allergy Unknown Verified 09/28/24 00:29 Tetanus Vaccines and Toxoid Allergy Unknown Verified 09/28/24 00:29 Review of Systems 2 General: Reports: 10 or more systems reviewed and unremarkable except in HPI and below PFSH ED 2 PFSH: Medical History Insomnia Essential hypertension Adult BMI 35.0-35.9 kg/sq m Diarrhea 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, recurrent, mild Urolithiasis Left ureteral calculus Other obsessive-compulsive disorder Recurrent major depressive disorder, in partial remission Family History Father Hypertension CAD (coronary artery disease) Hyperlipidemia Cancer Brother Hypertension CAD (coronary artery disease) Hyperlipidemia Grandfather CAD (coronary artery disease) Hypertension Mother Hyperlipidemia Social History Smoking and tobacco/nicotine status: never used tobacco/nicotine Alcohol intake: never Substance/Drug Use: never Current gender identity: Female Physical Exam 2 Const: COMMON NORMALS: no acute distress, average body habitus, patient oriented x3, no limitations, healthy appearing, alert and well nourished HENMT: COMMON NORMALS: normocephalic, atraumatic, hearing grossly normal bilaterally, external ears normal, Normal external nose present and moist oral mucous membranes HEAD & SCALP: normocephalic and atraumatic NOSE: Normal external nose present EXTERNAL EAR: Yes external ears normal Neck/C-Spine: COMMON NORMALS: no JVD Chest: COMMONS NORMALS: normal inspection of the chest and normal palpation of entire chest wall Resp: COMMON NORMALS: normal respiratory effort, No retractions, No use of accessory muscles and clear to auscultation bilaterally AUSCULTATION: clear to auscultation bilaterally Cardio: COMMON NORMALS: no JVD, regular rate, regular rhythm, S1 normal heart sound present, S2 normal heart sound present, No gallops present (Cardio), No clicks present (Cardio), No murmurs present (Cardio) and No rub (Cardio) R ATE: regular rate RHYTHM: regular rhythm HEART SOUNDS: S1 normal heart sound present and S2 normal heart sound present GI: COMMON NORMALS: Normal to inspection, nondistended, normoactive bowel sounds present, Soft to palpation, non-tender, No hepatosplenomegaly present and no masses PALPATION: Yes Soft to palpation and Yes No hepatosplenomegaly present Neuro: COMMON NORMALS: patient oriented x3 SENSORIUM/ORIENTATION: Yes alert Course 2 Vital Signs: Vital signs: Vital Signs Temperature 97.5 F L 09/28/24 00:24 Pulse Rate 98 09/28/24 00:24 Respiratory Rate 16 09/28/24 00:24 Blood Pressure 151/92 09/28/24 00:24 Pulse Oximetry 97 09/28/24 00:24 Oxygen Delivery Me thod Room Air 09/28/24 00:24 MDM - Nausea/Vomiting/Diarrhea Medical Decision Making Lab work was obtained, patient was given 8 mg Zofran, once lab work was resulted and results was discussed with the patient patient is feeling much better. Patient be discharged. Medical Records I reviewed the patient's medical records. Lab Data I reviewed the patient's lab results. 09/28/24 01:00 09/28/24 01:00 Laboratory Results WBC 11.36 10^3/uL (3.29-11.43) 09/28/24 01:00 RBC 5.63 10^6/uL (3.85-5.65) 09/28/24 01:00 Hgb 15.90 g/dL (11.27-16.99) 09/28/24 01:00 Hct 47.4 % (36-47) H 09/28/24 01:00 MCV 84.2 fl (85-98) L 09/28/24 01:00 MCH 28.2 pg (27-33) 09/28/24 01:00 MCHC 33.5 g/dL (30-55) 09/28/24 01:00 RDW 12.9 % (12.1-15.1) 09/28/24 01:00 Plt Count 309 10^3/cmm (157-399) 09/28/24 01:00 MPV 8.7 fL (7.4-10.4) 09/28/24 01:00 Neut % (Auto) 88.9 % 09/28/24 01:00 Lymph % (Auto) 5.8 % 09/28/24 01:00 [place] % (Auto) 4.2 % 09/28/24 01:00 Eos % (Auto) 0.6 % 09/28/24 01:00 Baso % (Auto) 0.3 % 09/28/24 01:00 Neut # (Auto) 10.10 10^3/uL (1.8-7.7) H 09/28/24 01:00 Lymph # (Auto) 0.7 10^3/uL (0.8-4.8) L 09/28/24 01:00 [place] # (Auto) 0.5 10^3/uL (0.2-0.9) 09/28/24 01:00 Eos # (Auto) 0.1 10^3/uL (0.0-0.8) 09/28/24 01:00 Baso # (Auto) 0.0 10^3/uL (0.0-0.1) 09/28/24 01:00 Nucleated RBC % (auto) 0 % 09/28/24 01:00 Nucleated RBCs # 0.0 /100WBC 09/28/24 01:00 Sodium 135 mmol/L (136-145) L 09/28/24 01:00 Potassium 3.7 mmol/L (3.5-5.1) 09/28/24 01:00 Chloride 99 mmol/L (98-107) 09/28/24 01:00 Carbon Dioxide 24 mmol/L (22-29) 09/28/24 01:00 Anion Gap 15.7 (5-19) 09/28/24 01:00 BUN 16 mg/dL (6-20) 09/28/24 01:00 Creatinine 0.7 mg/dL (0.5-0.9) 09/28/24 01:00 GFR Calculation 87.2 mL/min (90-130) L 09/28/24 01:00 Glucose 158 mg/dL (65-115) H 09/28/24 01:00 Calculated Osmolality 284 mOsm/kg (285-295) L 09/28/24 01:00 Calcium 9.4 mg/dL (8.5-10.5) 09/28/24 01:00 Total Bilirubin 0.9 mg/dL (0.15-1.2) 09/28/24 01:00 AST 20 U/L (0-32) 09/28/24 01:00 ALT 19 U/L (0-33) 09/28/24 01:00 Alkaline Phosphatase 132 U/L (35-105) H 09/28/24 01:00 Total Protein 7.5 g/dL (6.6-8.7) 09/28/24 01:00 Albumin 4.2 g/dL (3.5-5.2) 09/28/24 01:00 Globulin 3.3 g/dL (1.3-4.6) 09/28/24 01:00 Lipase 25 U/L (13-60) 09/28/24 01:00 All radiology interpretation(s) finalized by discharge Discharge Plan Discharge Patient Disposition: Home Clinical Impression: Gastroenteritis Condition: Stable Prescriptions: New ondansetron HCl 4 mg tablet 4 mg PO Q8H PRN (Reason: nausea and vomiting) Qty: 14 0RF No Action amlodipine 10 mg tablet 10 mg PO DAILY Qty: 60 1RF diclofenac sodium [Arthritis Pain (diclofenac)] 1 % gel 2 g topical QID Qty: 100 1RF albuterol sulfate 90 mcg/actuation HFA aerosol inhaler 2 inh INHALATION Q6H PRN (Reason: shortness of breath or wheezing) Qty: 8 0RF Discharge Orders: Discharge ED (Routine); Ordered 09/28/24 Ordered By: Miguel Angel Lowery Patient Instructions: Acute Nausea and Vomiting (ED) Activity Restrictions/Additional Instructions: Thank you for choosing [facility] for your healthcare needs today. Please realize that you were seen in the emergency department and that we are providing you with an emergency medical screening exam and this may not be a complete and all exclusive of all testing and/or medical workup we may need to determine your element or severity of your illness. It is very important that you follow-up as instructed with your primary care provider or specialist for the additional evaluation and to discuss your medical treatment plan. You may return to the emergency department should you have concerns or if your condition changes or worsens in any way. Coding Level of Care Code ED 4Th Grade Teacher for Pat Soto
[2024-09-28 03:00] VITALS: BP 139/81; PULSE 83; O2SAT 93
[2024-09-28 03:42] VITALS: BP 136/83; PULSE 88; O2SAT 100
== END 2024-09-28 03:44 | disposition home or self-care (01) ==
PROVIDERS: Emergency Provider Emergency Medicine
DX: K52.9 Noninfective gastroenteritis and colitis, unspecified (principal); I10 Essential (primary) hypertension
CPT/HCPCS: 36415; 80053; 83690; 85025; 99283; Q0162

== ENCOUNTER → 2024-12-08 14:34 | Outpatient (BNVA) | payer MEDICAID, SELFPAY ==
[2021-12-27 13:50] VITALS: BP 166/97; BMI 35.0
== END ==
PROVIDERS: PCP Family Medicine; Visit Provider Emergency Medicine
DX: M25.562 Pain in left knee (principal)
CPT/HCPCS: 73562

== ENCOUNTER → 2024-12-14 13:13 | Outpatient (BNVA) | payer MEDICAID, SELFPAY ==
[2021-12-27 13:50] VITALS: BP 166/97; BMI 35.0
== END ==
PROVIDERS: PCP Family Medicine; Visit Provider Physician Assistant
DX: M25.562 Pain in left knee (principal); M54.16 Radiculopathy, lumbar region; M53.3 Sacrococcygeal disorders, not elsewhere classified; M25.561 Pain in right knee
CPT/HCPCS: 73560; 73565; 99203

== ENCOUNTER → 2024-12-30 14:59 | Outpatient (BNVA) | payer MEDICAID, SELFPAY ==
[2021-12-27 13:50] VITALS: BP 166/97; BMI 35.0
== END ==
PROVIDERS: PCP Family Medicine; Visit Provider Orthopaedic Surgery
DX: M54.16 Radiculopathy, lumbar region (principal); M54.2 Cervicalgia; M25.559 Pain in unspecified hip
CPT/HCPCS: 72050; 72110; 73523; 99213

== ENCOUNTER 2025-01-13 13:54 | Emergency (ER) | payer MEDICAID, SELFPAY ==
[2021-12-27 13:50] VITALS: BP 166/97; BMI 35.0
[2025-01-13 14:02] VITALS: BP 152/90; PULSE 72; RESP 18; TEMP 36.7; O2SAT 97
--- NOTE | 2025-01-13 14:36 | ED_ITS ---
HPI - Nausea/Vomiting/Diarrhea 2 General: Chief complaint: Abdominal Pain Stated complaint: kidney problems/abd pain,vomitting Time Seen by Provider: 01/13/25 14:05 Source: patient Mode of arrival: ambulatory Limitations: no limitations History of Present Illness: This patient presents to our emergency department because she states she has not felt well for the past 2 days or so. She has had some just generalized malaise and vomiting and diarrhea. She states that she has also had a noted that she has had decreased urine output over the past 24 hours or so and her urine has been very dark. She is uncertain whether she has had fever or not. She states her boyfriend has had upper respiratory symptoms and she thought that she might be just having allergies. She states that this morning she took food out of the freezer that was leftovers from a restaurant that she ate a couple days ago and when she was eating it it seemed to appear to her that there might be a snail or snails in her food which made her upset and she vomited after that. Denies any associated abdominal pain. She denies any blood in her stools or blood in her vomitus. She has had a prior history of kidney stones but many years ago and she does not have any concomitant flank pain at this time. She states that she probably has been drinking as much fluid as normal because of her GI symptoms. Associated nausea: Yes Associated symtoms: Reports nausea; Denies anxiety, change in vision, chest pain, dysuria, headache(s), palpitations or syncope Related Data Previous Rx's ?Medication ?Instructions ?Recorded diclofenac sodium 1 % topical gel 2 g topical QID #100 grams 09/17/24 (Arthritis Pain (diclofenac)) albuterol sulfate 90 mcg/actuation 1 inh inhalation QI D PRN shortness 10/18/24 aerosol inhaler of breath or wheezing #8.5 g tina amlodipine 10 mg tablet 10 mg PO DAILY #90 tabs 12/07 omeprazole 20 mg capsule,delayed 20 mg PO DAILY #60 ca ps 10/18/24 release cephalexin 500 mg capsule 500 mg PO BID 5 days #10 cap s 01/13/25 Allergies Allergy/AdvReac Type Severity Reaction Status Date / Time kiwi Allergy Severe throat Verified 12/14/24 13:25 swelling aspartame Allergy Unknown Verified 12/14/24 13:25 Tetanus Vaccines and Toxoid Allergy Unknown Verified 12/14/24 13:25 Review of Systems 2 Const: Reports: body aches; Denies: fever(s) Eyes: Denies: change in vision ENMT: Reports: nasal congestion; Denies: throat pain or odynophagia Card: Denies: chest pain, palpitations, irregular heart rhythm or syncope Resp: Denies: dyspnea, productive cough or non-productive cough GI: Reports: nausea, vomiting and diarrhea; Denies: abdominal pain, hematemesis, hematochezia or melena : Reports: oliguria; Denies: flank pain, difficulty voiding or dysuria Musc: Denies: neck pain or back pain Skin/Breast: Denies: rash or pruritus Neuro: Denies: headache(s), numbness in extremities or weakness in extremities Psych: Denies: anxiety or depression PFSH ED 2 PFSH: Medical History Heterotopic ossification of bone GERD (gastroesophageal reflux disease) Insomnia Essential hypertension Adult BMI 35.0-35.9 kg/sq m Diarrhea 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, recurrent, mild Urolithiasis Left ureteral calculus Other obsessive-compulsive disorder Recurrent major depressive disorder, in partial remission Family History Father Hypertension CAD (coronary artery disease) Hyperlipidemia Cancer Brother Hypertension CAD (coronary artery disease) Hyperlipidemia Grandfather CAD (coronary artery disease) Hypertension Mother Hyperlipidemia Social History Smoking and tobacco/nicotine status: never used tobacco/nicotine Alcohol intake: never Substance/Drug Use: never Current gender identity: Female Physical Exam 2 Narrative: EXAM NARRATIVE: She is alert in no acute distress answers questions in a goal-directed fashion. Const: COMMON NORMALS: no acute distress, patient oriented x3 and alert G ENERAL APPEARANCE: cooperative NUTRITIONAL APPEARANCE: overweight HENMT: COMMON NORMALS: Normal nasal mucous membranes and turbinates present, moist oral mucous membranes and oropharynx normal NOSE: Normal nasal mucous membranes and turbinates present Eye: COMMON NORMALS: Equal, round and reactive pupils present, EOMs intact bilaterally and conjunctivae normal CONJUNCTIVA: Yes conjunctivae normal P UPIL: Yes Equal, round and reactive pupils present Neck/C-Spine: COMMON NORMALS: full ROM, no lymphadenopathy and supple Chest: COMMONS NORMALS: normal inspection of the chest Resp: COMMON NORMALS: normal respiratory effort, No use of accessory muscles and clear to auscultation bilaterally AUSCULTATION: clear to auscultation bilaterally Cardio: COMMON NORMALS: regular rate, regular rhythm, No murmurs present (Cardio) and Peripheral pulses 2+ throughout RATE: regular rate RHYTHM: r egular rhythm PERIPHERAL PULSES: Peripheral pulses 2+ throughout GI: COMMON NORMALS: Normal to inspection, nondistended, normoactive bowel sounds present, Soft to palpation and non-tender PALPATION: Yes Soft to palpation : COMMON NORMALS: Yes no CVA tenderness BLADDER/KIDNEY EXAM: Yes no CVA tenderness Back/Pelvis: COMMON NORMALS: no CVA tenderness, no thoracic nor lumbar tenderness and thoraco-lumbar ROM normal Extremity: COMMON NORMALS: normal to inspection, full ROM, capillary refill normal, no joint enlargement, no calf tenderness and no pedal edema Neuro: COMMON NORMALS: patient oriented x3, moves all extremities and no sensory deficits noted SENSORIUM/ORIENTATION: Yes alert Psych: COMMON NORMALS: mental status grossly normal Skin: COMMON NORMALS: no rashes or lesions noted, no wounds and turgor normal GENERAL SKIN EXAM: no rashes or lesions noted and turgor normal Course 2 Reevaluation(s): Reevaluation #1: No emesis or diarrhea since arrival. She states that she still feels somewhat ill but no discrete pain or other discomfort. I discussed that her urinalysis is not totally normal and certainly could be a contributing factor. She does not have any evidence of acute kidney injury or other worrisome findings on her laboratory studies. Time: 17:01 Reevaluation #2: Patient was reevaluated. She states she is feeling better. She tolerated fluids without difficulty and does not have any ongoing abdominal pain vomiting diarrhea etc. She does not appear to be have any untoward effects that would suggest a surgical abdomen based upon her clinical presentation and she does not have a leukocytosis or other significant perturbations in her laboratories other than her urinalysis which of course has the confounder and that she has a lot of squamous cells. I think it is reasonable to empirically treat her and follow her response with return precautions and she voiced understanding of the same. Time: 17:43 Vital Signs: Vital signs: Vital Signs Temperature 98.0 F 01/13/25 14:02 Pulse Rate 63 01/13/25 16:20 Respiratory Rate 18 01/13/25 14:02 Blood Pressure 141/84 01/13/25 16:20 Pulse Oximetry 97 01/13/25 16:20 Oxygen Delivery Me thod Room Air 01/13/25 14:02 MDM - Nausea/Vomiting/Diarrhea Medical Decision Making Patient presented as noted in the HPI. Her clinical exam did not reveal any evidence of concerning findings such as a surgical abdomen etc. Her history of decreased urine output and malaise for the past couple days could represent a possible viral illness, possible occult urinary tract infection etc. Laboratories were obtained to include urinalysis. Urinalysis did show bacteria as well as pyuria but did have squamous epithelial cells present. She received IV fluids and had clinical improvement and able to tolerate fluids and there was no evidence of ongoing symptoms. Given her presentation there is no evidence at this time of an ongoing emergency medical condition but we discussed that if her symptoms did not improve or resolve or she had worsening symptoms she should return for further evaluation. Lab Data I reviewed the patient's lab results. 01/13/25 14:46 01/13/25 14:46 Laboratory Results WBC 5.55 10^3/uL (3.29-11.43) 01/13/25 14:46 RBC 5.08 10^6/uL (3.85-5.65) 01/13/25 14:46 Hgb 14.90 g/dL (11.27-16.99) 01/13/25 14:46 Hct 43.7 % (36-47) 01/13/25 14:46 MCV 86.0 fl (85-98) 01/13/25 14:46 MCH 29.3 pg (27-33) 01/13/25 14:46 MCHC 34.1 g/dL (30-55) 01/13/25 14:46 RDW 12.9 % (12.1-15.1) 01/13/25 14:46 Plt Count 324 10^3/cmm (157-399) 01/13/25 14:46 MPV 8.8 fL (7.4-10.4) 01/13/25 14:46 Neut % (Auto) 56.8 % 01/13/25 14:46 Lymph % (Auto) 31.5 % 01/13/25 14:46 [place] % (Auto) 8.3 % 01/13/25 14:46 Eos % (Auto) 2.3 % 01/13/25 14:46 Baso % (Auto) 0.9 % 01/13/25 14:46 Neut # (Auto) 3.15 10^3/uL (1.8-7.7) 01/13/25 14:46 Lymph # (Auto) 1.8 10^3/uL (0.8-4.8) 01/13/25 14:46 [place] # (Auto) 0.5 10^3/uL (0.2-0.9) 01/13/25 14:46 Eos # (Auto) 0.1 10^3/uL (0.0-0.8) 01/13/25 14:46 Baso # (Auto) 0.1 10^3/uL (0.0-0.1) 01/13/25 14:46 Nucleated RBC % (auto) 0 % 01/13/25 14:46 Nucleated RBCs # 0.0 /100WBC 01/13/25 14:46 Sodium 140 mmol/L (136-145) 01/13/25 14:46 Potassium 3.6 mmol/L (3.5-5.1) 01/13/25 14:46 Chloride 103 mmol/L (98-107) 01/13/25 14:46 Carbon Dioxide 24 mmol/L (22-29) 01/13/25 14:46 Anion Gap 16.6 (5-19) 01/13/25 14:46 BUN 15 mg/dL (6-20) 01/13/25 14:46 Creatinine 0.7 mg/dL (0.5-0.9) 01/13/25 14:46 GFR Calculation 87.2 mL/min (90-130) L 01/13/25 14:46 Glucose 88 mg/dL (65-115) 01/13/25 14:46 Calculated Osmolality 290 mOsm/kg (285-295) 01/13/25 14:46 Calcium 9.6 mg/dL (8.5-10.5) 01/13/25 14:46 Magnesium 2.0 mg/dL (1.7-2.3) 01/13/25 14:46 Total Bilirubin 0.4 mg/dL (0.15-1.2) 01/13/25 14:46 AST 19 U/L (0-32) 01/13/25 14:46 ALT 16 U/L (0-33) 01/13/25 14:46 Alkaline Phosphatase 116 U/L (35-105) H 01/13/25 14:46 Total Protein 7.5 g/dL (6.6-8.7) 01/13/25 14:46 Albumin 4.2 g/dL (3.5-5.2) 01/13/25 14:46 Globulin 3.3 g/dL (1.3-4.6) 01/13/25 14:46 Lipase 20 U/L (13-60) 01/13/25 14:46 Urine Color Yellow (Yellow) 01/13/25 15:15 Urine Appearance Cloudy (CLEAR) A 01/13/25 15:15 Urine pH 6.5 (5-7) 01/13/25 15:15 Ur Specific [place] 1.018 (1.005-1.030) 01/13/25 15:15 Urine Protein Trace (Negative) A 01/13/25 15:15 Urine Glucose (UA) Negative (Normal) 01/13/25 15:15 Urine Ketones Negative (Negative) 01/13/25 15:15 Urine Blood Negative (Negative) 01/13/25 15:15 Urine Nitrate Negative (Negative) 01/13/25 15:15 Urine Bilirubin Negative (Negative) 01/13/25 15:15 Urine Urobilinogen 1.0 mg/dL (Negative) 01/13/25 15:15 Ur Leukocyte Esterase 2+ (Negative) A 01/13/25 15:15 Urine RBC 6-10 /hpf (0-2) 01/13/25 15:15 Urine WBC 6-10 /hpf (0-5) 01/13/25 15:15 Ur Squamous Epith Cells 21-50 /hpf (0-5) H 01/13/25 15:15 Amorphous Sediment Not Reportable 01/13/25 15:15 Urine Bacteria 3+ /hpf (NONE) H 01/13/25 15:15 Hyaline Casts 3.30 /lpf 01/13/25 15:15 No radiology studies performed this visit Discharge Plan Discharge Patient Disposition: Home Clinical Impression: Urinary tract infection Qualifiers: Urinary tract infection type: site unspecified Hematuria presence: without hematuria Qualified Code(s): N39.0 - Urinary tract infection, site not specified Condition: Stable Prescriptions: New cephalexin 500 mg capsule 500 mg PO BID 5 Days Qty: 10 0RF No Action diclofenac sodium [Arthritis Pain (diclofenac)] 1 % gel 2 g topical QID Qty: 100 1RF amlodipine 10 mg tablet 10 mg PO DAILY Qty: 90 1RF omeprazole 20 mg capsule,delayed release(DR/EC) 20 mg PO DAILY Qty: 60 3RF albuterol sulfate 90 mcg/actuation HFA aerosol inhaler 1 inh inhalation QID PRN (Reason: shortness of breath or wheezing) Qty: 8.5 1RF Discharge Orders: Discharge ED (Routine); Ordered 01/13/25 Ordered By: Anoop Núñez Referrals: Mateo Fritz MD [Primary Care Provider, [facility]] Discharge Diet: Advance as tolerated Discharge Activity: Increase activity as tolerated Patient Instructions: Opioid Safety, Pain Management Activity Restrictions/Additional Instructions: As discussed your emergency department evaluation today did not discover any evidence of a serious condition although you do have findings that suggest you have a urinary tract infection. Therefore we have provided antibiotics to take for the next 5 days. If however your symptoms change, worsen or any other concerning symptoms develop you should return to the emergency department anytime for reevaluation. Print Language: Libyan Coding Level of Care Code ED Staff Nurse Anesthetist for Pat Soto
[2025-01-13] MEDS: lactated ringers 1,000 ML 999 ML IV (14:52)
[2025-01-13 15:02] LABS: Basophils # 0.1 10^3/uL (0.0-0.1); Basophils % 0.9 %; Eosinophils # 0.1 10^3/uL (0.0-0.8); Eosinophils % 2.3 %; Hematocrit 43.7 % (36-47); Lymphocytes # 1.8 10^3/uL (0.8-4.8); Lymphocytes % 31.5 %; Mean Corpuscular HGB Conc 34.1 g/dL (30-55); Mean Corpuscular Hemoglobin 29.3 pg (27-33); Mean Platelet Volume 8.8 fL (7.4-10.4); Monocytes # 0.5 10^3/uL (0.2-0.9); Monocytes % 8.3 %; Neutrophils # 3.15 10^3/uL (1.8-7.7); Neutrophils % 56.8 %; Nucleated Red Blood Cells % 0 %; Platelet Count 324 10^3/cmm (157-399); Red Blood Count 5.08 10^6/uL (3.85-5.65); Red Cell Distribution Width 12.9 % (12.1-15.1); White Blood Count 5.55 10^3/uL (3.29-11.43)
[2025-01-13 15:23] LABS: Alanine Aminotransferase 16 U/L (0-33); Albumin Level 4.2 g/dL (3.5-5.2); Alkaline Phosphatase 116 U/L (35-105); Anion Gap 16.6 (5-19); Aspartate Amino Transferase 19 U/L (0-32); Blood Urea Nitrogen 15 mg/dL (6-20); Calcium 9.6 mg/dL (8.5-10.5); Carbon Dioxide 24 mmol/L (22-29); Chloride 103 mmol/L (98-107); Creatinine Clr Calc Pharmacy 97.5456; Globulin 3.3 g/dL (1.3-4.6); Glomerular Filtration Rate 87.2 mL/min (90-130); Glucose 88 mg/dL (65-115); Lipase 20 U/L (13-60); Osmolality Calculated 290 mOsm/kg (285-295); Potassium 3.6 mmol/L (3.5-5.1); Sodium 140 mmol/L (136-145); Total Bilirubin 0.4 mg/dL (0.15-1.2); Total Protein 7.5 g/dL (6.6-8.7)
[2025-01-13 15:41] LABS: Bilirubin Urine Negative (Negative); Blood Urine Negative (Negative); Glucose Urine UA Negative (Normal); Ketones Urine Negative (Negative); Leukocyte Esterase Urine 2+ (Negative); Nitrate Urine Negative (Negative); Protein Urine Trace (Negative); Specific Gravity, Urine 1.018 (1.005-1.030); Urine Appearance Cloudy (CLEAR); Urine Color Yellow (Yellow); pH Urine 6.5 (5-7)
[2025-01-13 15:46] LABS: Add Urine Microscopic? YES; Bacteria Urine 3+ /hpf; Squamous Epithelial Cell Urine 21-50 /hpf (0-5)
[2025-01-13 16:05] LABS: UA Slide Review UA Slide Review Perf
[2025-01-13 16:07] LABS: Add Urine Culture? Yes
[2025-01-13 16:20] VITALS: BP 141/84; PULSE 63; O2SAT 97
[2025-01-13] MEDS: ceFAZolin 1,000 mg SDV 1000 MG IVP (17:17)
== END 2025-01-13 18:07 | disposition home or self-care (01) ==
PROVIDERS: Emergency Provider Emergency Medicine; PCP Family Medicine
DX: N39.0 Urinary tract infection, site not specified (principal); I10 Essential (primary) hypertension
CPT/HCPCS: 80053; 81001; 83690; 83735; 85025; 87086; 96361; 96374; 99284; J0690; J7120

== ENCOUNTER → 2025-01-27 08:35 | Outpatient (BNVA) | payer MEDICAID, SELFPAY ==
[2021-12-27 13:50] VITALS: BP 166/97; BMI 35.0
== END ==
PROVIDERS: PCP Family Medicine; Visit Provider Orthopaedic Surgery
DX: M54.16 Radiculopathy, lumbar region (principal); M54.2 Cervicalgia
CPT/HCPCS: 72050; 72110; 99213

== ENCOUNTER 2025-02-13 05:00 | Outpatient (RCR) | payer MEDICAID, SELFPAY ==
[2021-12-27 13:50] VITALS: BP 166/97; BMI 35.0
== END 2025-03-14 23:59 | disposition home or self-care (01) ==
LOC: SPT 05:00
PROVIDERS: PCP Family Medicine; Visit Provider Orthopaedic Surgery
DX: M54.50 Low back pain, unspecified (principal); G89.29 Other chronic pain
CPT/HCPCS: 97161

== ENCOUNTER 2025-09-01 11:44 | Emergency (ER) | payer MEDICAID, SELFPAY ==
--- OUTSIDE RECORDS SUMMARY | 2024-07-10 03:00 | XMS_ITS ---
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
--- OUTSIDE RECORDS SUMMARY | 2024-07-11 03:00 | XMS_ITS ---
Author Organization [facility] Address [address] [place] [address] Care Team Providers Care Diamond Sander Name Role Phone Mateo Kirby Primary Care Provider Unavailabl e Migration, Provider Unavailable Unavailable REASON FOR VISIT [facility] [place] Social History Social History Additional Details Category Social Info Options Details Migrated Social History Migrated Social History Alcoholic beverages? - No, Currently on disability? - Yes, Drug or substance abuse? - No, exposure to toxins/poisonous substances at work - No, Involved in any legal proceedings or lawsuits? - No, Marital Status - single, Nonprescription drug use? - No, Participation in detoxification or rehabilitation - No, Smoking - No, Smoking status (MU) - Never smoker, Working currently? 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 * Social History: M igrated Social History: M igrated Social History: Alcoholic beverages? - No, C urrently on disability? - Yes, D rug or substance abuse? - No, e xposure to toxins/poisonous substances at work - No, I nvolved in any legal proceedings or lawsuits? - No, M arital Status - single, N onprescription drug use? - No, P articipation in detoxification or rehabilitation - No, S moking - No, S moking status (MU) - Never smoker, W orking currently? - No. * * Date:
[2025-02-04 14:17] VITALS: BP 166/97; BMI 35.0
[2025-09-01 11:51] VITALS: BP 140/79; PULSE 64; RESP 16; TEMP 36.3; O2SAT 99; BMI 38.4
--- NOTE | 2025-09-01 12:08 | XR_ITS ---
WS: [id number] Portable AP upright chest, 09/01/2025 Clinical Data: dyspnea/cough Comparison: Portable chest, 11/03/2021 Findings: No nodules, masses or effusions are seen. The heart is normal. The pulmonary vascularity is not increased. No pneumonia or pneumothorax is seen. XR/XR chest 1V portable [id number] Impression: Negative chest.
--- NOTE | 2025-09-01 12:09 | CT_ITS ---
WS: [id number] CT ABDOMEN PELVIS TECHNIQUE: Noncontrast CT of the abdomen and pelvis with coronal and sagittal reformatted images. CLINICAL INFORMATION: Abdominal pain COMPARISON: 03/09/2023 DLP: 985.[address] scans at [facility] use at least one of these dose optimization techniques: automated exposure control; mA and/or kV adjustment per patient size (includes targeted exams where dose is matched to clinical indication); or iterative reconstruction. FINDINGS: Mild diffuse fatty infiltration of the liver. Normal spleen. Small esophageal hiatal hernia. Lung bases are well aerated. Adrenal glands are normal. Fatty atrophy of the pancreas. Normal caliber abdominal aorta. No free fluid in the abdomen or pelvis. Normal appendix in the RIGHT lower quadrant. Tiny fat- containing umbilical hernia. Normal sigmoid colon. A few diverticuli. No evidence of acute diverticulitis. CT/CT abdomen pelvis [facility] [id number] IMPRESSION: No acute abdominal or pelvic findings
--- NOTE | 2025-09-01 12:09 | W.ED.ABDPA2 ---
HPI - Abdominal Pain General: Chief Complaint: Abdominal Pain Stated Complaint: Middle ABD Pain BP Low Time Seen by Provider: 09/01/25 12:01 History of Present Illness: 55-year-old female presents emergency room complaining of suprapubic abdominal pain patient has severe pain at times that point she nearly blacks out. She has not had any vomiting or diarrhea she denies any dysuria urgency or frequency. She did not had any chest pain. No shortness of breath. Report of low blood pressures at home. Associated Symptoms: Denies chills, dysuria and fever(s) Related Data Home Medications ?Medication ?Instructions ?Recorded ?Confirmed amlodipine 10 mg tablet 10 mg PO QPM 09/01/25 09/01/25 omeprazole 20 mg capsule,delayed 20 mg PO DAILY PRN Acid Reflux 09/01/25 09/01/25 release Allergies Allergy/AdvReac Type Severity Reaction Status Date / Time kiwi Allergy Severe throat Verified 09/01/25 11:54 swelling aspartame Allergy Unknown Verified 09/01/25 11:54 Tetanus Vaccines and Toxoid Allergy Unknown Verified 09/01/25 11:54 Review of Systems Const: Denies: fever(s) or chills Card: Denies: chest pain Resp: Reports: non-productive cough and chest congestion; Denies: dyspnea GI: Reports: abdominal pain : Denies: dysuria, urinary frequency or urinary urgency Musc: Denies: neck pain or back pain Skin/Breast: Denies: rash PFSH ED PFSH: Medical History Psychiatric care Heterotopic ossification of bone GERD (gastroesophageal reflux disease) Insomnia Essential hypertension Adult BMI 35.0-35.9 kg/sq m Diarrhea 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, recurrent, mild Urolithiasis Left ureteral calculus Other obsessive-compulsive disorder Recurrent major depressive disorder, in partial remission Family History Father Hypertension CAD (coronary artery disease) Hyperlipidemia Cancer Brother Hypertension CAD (coronary artery disease) Hyperlipidemia Grandfather CAD (coronary artery disease) Hypertension Mother Hyperlipidemia Social History Smoking and tobacco/nicotine status: never used tobacco/nicotine Alcohol intake: never Substance/Drug Use: never Current gender identity: Female Physical Exam Const: COMMON NORMALS: no acute distress GENERAL APPEARANCE: cooperative and comfortable ORIENTATION/CONSCIOUSNESS: Yes awake, Yes oriented to person, Yes oriented to place and Yes oriented to time HENMT: COMMON NORMALS: normocephalic, atraumatic and hearing grossly normal bilaterally HEAD & SCALP: normocephalic and atraumatic Resp: COMMON NORMALS: normal respiratory effort, No retractions, No use of accessory muscles and clear to auscultation bilaterally AUSCULTATION: clear to auscultation bilaterally Cardio: COMMON NORMALS: regular rate, regular rhythm and No murmurs present (Cardio) RATE: regular rate RHYTHM: regular rhythm GI: COMMON NORMALS: Soft to palpation and No hepatosplenomegaly present AUSCULTATION: Yes normoactive bowel sounds PALPATION: Yes Soft to palpation, No Tenderness to palpation present (GI), No Guarding due to palpation present (GI) and Yes No hepatosplenomegaly present Extremity: COMMON NORMALS: normal to inspection, capillary refill normal, no clubbing, cyanosis or edema, no calf tenderness and no pedal edema Neuro: SENSORIUM/ORIENTATION: Yes oriented to person, Yes oriented to place and Yes oriented to time Skin: COMMON NORMALS: no rashes or lesions noted GENERAL SKIN EXAM: no rashes or lesions noted Course Vital Signs: Vital signs: Vital Signs Temperature 97.4 F L 09/01/25 11:51 Pulse Rate 55 L 09/01/25 15:35 Respiratory Rate 16 09/01/25 11:51 Blood Pressure 134/85 09/01/25 15:35 Pulse Oximetry 97 09/01/25 15:35 Oxygen Delivery Me thod Room Air 09/01/25 13:42 MDM - Abdominal Pain Medical Decision Making Medical decision making Social determinants: None I reviewed the patient's medical record. I reviewed the patient's current home meds. Alternate historians: None Differential diagnosis: Acute abdominal findings such as bowel obstruction perforated viscus upper or lower GI bleed cystitis pneumonia Lab Review: No leukocytosis. Slight elevation in alk phos but remainder of her liver functions T. bili are normal no sign of cystitis on the UA. Chemistry show mild hypokalemia Imaging: Chest x-ray unremarkable, CT did not of the abdomen pelvis did not show any acute findings. Assessment of risk Level of risk: Low to moderate Hospitalization considerations: Pending CT report if there is significant intra-abdominal pathology Reexamination: Patient stable vital signs have been stable blood pressures were normal throughout her visit. She is mildly bradycardic Assessment and plan: Patient has no significant findings I suspect she is having vasovagal episodes from persistent cough. She does have viral upper respiratory like symptoms at this time. No acute findings supportive cares follow-up as needed. We did recommend that she decrease her amlodipine to 5 mg daily and follow-up with primary care doctor. Lab Data 09/01/25 12:15 09/01/25 12:15 Labs/Radiology: Radiology Impressions Chest X-Ray 09/01/25 12:08 Impression: Negative chest. Abdomen/Pelvis CT 09/01/25 12:09 IMPRESSION: No acute abdominal or pelvic findings Laboratory Results WBC 6.96 10^3/uL (3.29-11.43) 09/01/25 12:15 RBC 5.13 10^6/uL (3.85-5.65) 09/01/25 12:15 Hgb 14.60 g/dL (11.27-16.99) 09/01/25 12:15 Hct 43.7 % (36-47) 09/01/25 12:15 MCV 85.2 fl (85-98) 09/01/25 12:15 MCH 28.5 pg (27-33) 09/01/25 12:15 MCHC 33.4 g/dL (30-55) 09/01/25 12:15 RDW 13.1 % (12.1-15.1) 09/01/25 12:15 Plt Count 327 10^3/cmm (157-399) 09/01/25 12:15 MPV 8.8 fL (7.4-10.4) 09/01/25 12:15 Neut % (Auto) 60.3 % 09/01/25 12:15 Lymph % (Auto) 32.8 % 09/01/25 12:15 [place] % (Auto) 5.0 % 09/01/25 12:15 Eos % (Auto) 1.0 % 09/01/25 12:15 Baso % (Auto) 0.6 % 09/01/25 12:15 Neut # (Auto) 4.20 10^3/uL (1.8-7.7) 09/01/25 12:15 Lymph # (Auto) 2.3 10^3/uL (0.8-4.8) 09/01/25 12:15 [place] # (Auto) 0.4 10^3/uL (0.2-0.9) 09/01/25 12:15 Eos # (Auto) 0.1 10^3/uL (0.0-0.8) 09/01/25 12:15 Baso # (Auto) 0.0 10^3/uL (0.0-0.1) 09/01/25 12:15 Nucleated RBC % (auto) 0 % 09/01/25 12:15 Nucleated RBCs # 0.0 /100WBC 09/01/25 12:15 Sodium 139 mmol/L (136-145) 09/01/25 12:15 Potassium 2.9 mmol/L (3.5-5.1) L 09/01/25 12:15 Chloride 102 mmol/L (98-107) 09/01/25 12:15 Carbon Dioxide 26 mmol/L (22-29) 09/01/25 12:15 Anion Gap 13.9 (5-19) 09/01/25 12:15 BUN 11 mg/dL (6-20) 09/01/25 12:15 Creatinine 0.8 mg/dL (0.5-0.9) 09/01/25 12:15 GFR Calculation 74.5 mL/min (90-130) L 09/01/25 12:15 Glucose 121 mg/dL (65-115) H 09/01/25 12:15 Calculated Osmolality 289 mOsm/kg (285-295) 09/01/25 12:15 Lactic Acid 1.6 mmol/L (0.5-2.2) 09/01/25 12:15 Calcium 8.9 mg/dL (8.5-10.5) 09/01/25 12:15 Magnesium 2.1 mg/dL (1.7-2.3) 09/01/25 12:15 Total Bilirubin 0.5 mg/dL (0.15-1.2) 09/01/25 12:15 AST 20 U/L (0-32) 09/01/25 12:15 ALT 20 U/L (0-33) 09/01/25 12:15 Alkaline Phosphatase 114 U/L (35-105) H 09/01/25 12:15 Total Protein 6.8 g/dL (6.6-8.7) 09/01/25 12:15 Albumin 4.0 g/dL (3.5-5.2) 09/01/25 12:15 Globulin 2.8 g/dL (1.3-4.6) 09/01/25 12:15 Lipase 14 U/L (13-60) 09/01/25 12:15 Urine Color Yellow (Yellow) 09/01/25 12:18 Urine Appearance Slightly cloudy (CLEAR) 09/01/25 12:18 Urine pH Not Reportable 09/01/25 12:18 Ur Specific [place] Not Reportable 09/01/25 12:18 Urine Protein Not Reportable 09/01/25 12:18 Urine Glucose (UA) Not Reportable 09/01/25 12:18 Urine Ketones Not Reportable 09/01/25 12:18 Urine Blood Not Reportable 09/01/25 12:18 Urine Nitrate Not Reportable 09/01/25 12:18 Urine Bilirubin Not Reportable 09/01/25 12:18 Urine Urobilinogen Not Reportable 09/01/25 12:18 Ur Leukocyte Esterase Not Reportable 09/01/25 12:18 Urine RBC 0-4 /hpf (0-2) H 09/01/25 12:18 Urine WBC 0-5 /hpf (0-5) 09/01/25 12:18 Ur Squamous Epith Cells 5-10 /hpf (0-5) H 09/01/25 12:18 Amorphous Sediment Not Reportable 09/01/25 12:18 Urine Bacteria Trace /hpf (NONE) 09/01/25 12:18 Hyaline Casts 0-4 /lpf H 09/01/25 12:18 All radiology interpretation(s) finalized by discharge EKG Data EKG 1: I personally reviewed and interpreted this EKG as follows: Interpretation: EKG 09/01/2025 1150 sinus rhythm. Rate of 61. [place]well [address]Tc [address] No acute ST elevation. Compared to his EKG 09/05/2020 no significant change Discharge Plan Discharge Patient Disposition: Home Clinical Impression: Abdominal pain, Vasovagal attack, Viral URI with cough Condition: Stable Prescriptions: No Action amlodipine 10 mg tablet 10 mg PO QPM omeprazole 20 mg capsule,delayed release(DR/EC) 20 mg PO DAILY PRN (Reason: Acid Reflux) Discharge Orders: Discharge ED (Routine); Ordered 09/01/25 Ordered By: Donnie Chandra Referrals: Mateo Fritz MD [Primary Care Provider, Family Practice] Discharge Diet: Usual diet Discharge Activity: Increase activity as tolerated Patient Instructions: Abdominal Pain (ED), Opioid Safety, Pain Management, Patient Portal & Avery Instructions Activity Restrictions/Additional Instructions: Thank you for choosing [facility] for your healthcare needs today. It is very important that you follow up as instructed or that you return to the Emergency Department should you have concerns or if your condition changes or worsens in any way. Emergency department visits are focused on emergent conditions, in some cases you may require further evaluation on an outpatient basis. You were seen in the emergency room with complaints of abdominal discomfort. CT of your abdomen was normal does not show any acute findings. Your white blood cell count was normal and your hemoglobin was normal. Chest x-ray did not show any acute changes. Your potassium was mildly low and you are given oral potassium replacement. Your other labs were unremarkable. Suspect your abdominal pain is from the coughing. This may have also triggered a reflux which caused her blood pressure drop resulting in the syncopal episode. Recommend you decrease your amlodipine to 5 mg daily and follow-up with your doctor within the next week. (Please note that included in your discharge packet is information concerning opioid safety and pain management. This information is given to all patients were discharged from the ER regardless of their discharge diagnosis or the medicines they usually take or are prescribed.) Print Language: [place]ese Coding Level of Care Code ED Press Setup Operator for Pat Soto
[2025-09-01 12:27] LABS: Hematocrit 43.7 % (36-47); Hemoglobin 14.60 g/dL (11.27-16.99); Mean Corpuscular HGB Conc 33.4 g/dL (30-55); Mean Corpuscular Hemoglobin 28.5 pg (27-33); Mean Corpuscular Volume 85.2 fl (85-98); Nucleated Red Blood Cells % 0 %; Platelet Count 327 10^3/cmm (157-399); Red Blood Count 5.13 10^6/uL (3.85-5.65); White Blood Count 6.96 10^3/uL (3.29-11.43)
[2025-09-01 12:46] LABS: Lactic Sepsis W/Reflex 1.6 mmol/L (0.5-2.2)
[2025-09-01 12:47] LABS: Alanine Aminotransferase 20 U/L (0-33); Albumin Level 4.0 g/dL (3.5-5.2); Alkaline Phosphatase 114 U/L (35-105); Anion Gap 13.9 (5-19); Aspartate Amino Transferase 20 U/L (0-32); Blood Urea Nitrogen 11 mg/dL (6-20); Calcium 8.9 mg/dL (8.5-10.5); Carbon Dioxide 26 mmol/L (22-29); Chloride 102 mmol/L (98-107); Globulin 2.8 g/dL (1.3-4.6); Glucose 121 mg/dL (65-115); Lipase 14 U/L (13-60); Osmolality Calculated 289 mOsm/kg (285-295); Sodium 139 mmol/L (136-145); Total Protein 6.8 g/dL (6.6-8.7)
[2025-09-01 12:54] LABS: Potassium 2.9 mmol/L (3.5-5.1)
--- OUTSIDE RECORDS SUMMARY | 2025-09-01 13:15 | XMS_ITS | Clinical Summary ---
Author Organization [facility] [address] [facility] Address [address] [place] [address] Phone Care Team Providers Care Supervisor Bottle Machines Name Role Phone Washington Bernard DO Primary Care Provider [phone] Allergies No known active allergies Medications HYDROcodone-deondre taminophen (NORCO) 7.5-325 mg Tablet Take 1 Tablet by mouth every 4 hours as needed for Pain, Moderate. 07/16/2020 Active chlorhexidine gluconate 0.12 % Mouthwash 15 mL by Mouth/Throat route 2 times daily. 07/16/2020 Active cetirizine (ZyrTEC) 10 mg tablet Take 10 mg by mouth daily. 07/16/2020 Active temazepam (RESTORIL) 15 mg capsule Take 15 mg by mouth nightly as needed for Insomnia. 07/16/2020 Active diclofenac sodium (VOLTAREN) 1 % gel Apply to affected area 4 times daily. 07/16/2020 Active gabapentin (NEURONTIN) 100 mg capsule Take 100 mg by mouth 3 times daily. 07/16/2020 Active fluoride, sodium, (ETHEDENT) 1.1 % Cream Take by mouth daily. 07/16/2020 Active escitalopram oxalate (LEXAPRO) 10 mg tablet Take 10 mg by mouth daily. 07/16/2020 Active Immunizations Immunization Administration Dates Next Due (TDVAX)(7 YRS UP) TETANUS AN D DIPHTHERIA TOXOIDS, ADSORBED (2 LF OF TETANUS TOXOID AND 2 LF OF DIPHTHERIA TOXOID), 0.5ML (PF), IM 04/24/2005 Dt Dtp Dtap Vaccine 11/15/2003 HIB, Unspecified Formulation 11/15/2003 Hepatitis A Vaccine 04/12/2008,08/05/2007 Hepatitis B Vaccine 11/01/2005, 5,04/24/2005,2003 IPV/OPV 11/15/2003 Social History Tobacco Use Types Packs/Day Years Used Date Smoking Tobacco: Never Smokeless Tobacco: Never Alcohol Use Standard Drinks/Week Comments Not Currently 0 (1 standard drink = 0.6 oz pur e alcohol) Comments Unknown Sex and Gender Information Value Date Recorded Sex Assigned at Not on file 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 Gender Identity Not on file Sexual Orientation Not on file Last Filed Vital Signs Vital Sign Reading Time Taken Comments Blood Pressure 154/92 07/16/2020 1:31 PM SCORING MACHINE OPERATOR Pulse - - Temperature 36.3 C (97.3 F) 07/16/2020 1:31 PM SCORING MACHINE OPERATOR Respiratory Rate 17 07/16/2020 1:31 PM SCORING MACHINE OPERATOR Oxygen Saturation - - Inhaled Oxygen Concentration - - Weight 93.9 kg (207 lb) 07/16/2020 1:31 PM SCORING MACHINE OPERATOR Height 157.5 cm (5' 2 ) 07/16/2020 1:31 PM SCORING MACHINE OPERATOR Body Mass Index 37.86 07/16/2020 1:31 PM SCORING MACHINE OPERATOR Plan of Treatment Health Maintenance Due Date Last Done Comments HEPATITIS B VACCINES (1 of 3 - 19+ 3-dose series) 1989 11/01/2005, 05/28/2005, 04/24/2005, Additional history exists HPV/Cotest (21-29) 1991 CERVICAL CANCER SCREENING 2000 HPV/Cotest (30-65) 2000 PAP SMEAR 2000 BREAST CANCER SCREENING 2010 DTAP/TDAP/TD VACCINES (3 - Tdap) 04/24/2015 04/24/20 05, 11/15/2003 COLORECTAL SCREENING 2015 Colorectal Cancer Screening 2015 FIT-DNA Q 3 years 2015 FIT/FOBT Q 1 year 2015 Flex Sig/CT Colonography Q 5 years 2015 ZOSTER VACCINE (1 of 2) 2020 INFLUENZA VACCINE (#1) 2025 Care Teams Supervisor Bottle Machines Relationship Specialty Start Date End Date Washington Bernard DO [address] [place] [address] PCP - General Family Practice 07/16/20
--- OUTSIDE RECORDS SUMMARY | 2025-09-01 13:15 | XMS_ITS | Patient Health Record ---
Author Organization [facility] Address [address] [place] [address] Care Team Providers Care Negative Restorer Name Role Phone Mateo Kirby Primary Care Provider Unavailabl e Reason For Referral No Information Social History Social History Additional Details Category [...] - Never smoker, Working currently? - No Plan Of Treatment No Information Medical (General) History Surgical History Surgery Date(Month/Year) section
[2025-09-01 13:42] VITALS: BP 117/59; PULSE 56; O2SAT 98
[2025-09-01 13:43] LABS: Add Urine Microscopic? NO
[2025-09-01 13:58] LABS: UA Manual Slide Review YES
[2025-09-01 14:00] LABS: Charge for UA Resulting for Rev
[2025-09-01] MEDS: potassium chloride oral liq 20 mEq/15 mL UDC 40 MEQ PO (14:05)
[2025-09-01 14:29] LABS: Magnesium 2.1 mg/dL (1.7-2.3)
--- NOTE | 2025-09-01 14:55 | ECG_ITS ---
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
[2025-09-01 15:35] VITALS: BP 134/85; PULSE 55; O2SAT 97
== END 2025-09-01 15:36 | disposition home or self-care (01) ==
PROVIDERS: Emergency Provider Family Medicine; PCP Family Medicine
DX: R10.9 Unspecified abdominal pain (principal); R55 Syncope and collapse; J06.9 Acute upper respiratory infection, unspecified; R05.9 Cough, unspecified; I10 Essential (primary) hypertension
CPT/HCPCS: 71045; 74176; 80053; 81003; 83605; 83690; 83735; 85025; 87040; 93005; 99285; J9999